=== PATIENT | male | born 1975 | race Two or more races ===

== ENCOUNTER 2024-12-24 21:23 | Inpatient (IN) | payer MEDICAID, OTHER ==
[~2024-12-24] VITALS: Ht 177.8 cm; Wt 99.8 kg
--- NOTE | 2024-12-24 21:44 | ED.PDOC ---
History of present illness HPI Comments 49 year old male brought in by EMS presents to the ED with a chief complaint of hyperglycemia onset today. Patient states he was experiencing difficultly breathing/breathing heavy and felt shaky as well as RT hip pain. Upon EMS arrival, patient's glucose read high, 700 ccs IV fluids were given, BG was checked, read high. Upon ED arrival, glucose was 600, hypertensive with BP 220 systolic. Patient denies any PMHx. Denies chest pain, dizziness, headache, fall, injury, nausea, vomiting, diarrhea, dysuria, hematuria. No other symptoms or modifying factors present at this time. Chief Complaint: Hyperglycemia Time Seen by MD: 21:30 History of present illness: Medications, Allergies Allergies: Coded Allergies: NO KNOWN ALLERGIES (Unverified , 12/24/24) Information Source: Patient, Relative, Emergency Med Personnel Mode of Arrival: EMS Timing: Hours Duration: Since onset Prehospital treatment: IVF (700 ccs) [place]: Shaky Symptoms: Shaky History of: None Modifying factors: Nothing Associated signs and symptoms: Other (difficulty breathing ) Past Medical History PAST MEDICAL HISTORY: Denies Surgical History: Denies all surgeries Family History Family History: Reviewed,noncontributory to illness, No family hx of Cancer, No family hx of DM, No family hx of Heart adelfo, No family hx of HTN, No family hx ofKidney adelfo, No family hx of Liver adelfo, No family hx of Lung adelfo, No family hx of Stroke Social History Smoker: Non-Smoker Alcohol: Denies ETOH Use Drugs: Denies Drug Use Lives In: Home Constitutional: denies: chills, diaphoresis, fatigue, fever, malaise, sweats, weakness, others EENTM: denies: blurred vision, double vision, ear bleeding, ear discharge, ear drainage, ear pain, ear ringing, eye pain, eye redness, hearing loss, mouth pain, mouth swelling, nasal discharge, nose bleeding, nose congestion, nose pain, photophobia, tearing, throat pain, throat swelling, voice changes, others Respiratory: reports: shortness of breath; denies: cough, hemoptysis, orthopnea, SOB at rest, SOB with excertion, stridor, wheezing, others Cardiovascular: denies: chest pain, dizzy spells, diaphoresis, Dyspnea on exertion, edema, irregular heart beat, left arm pain, lightheadedness, palpitations, PND, syncope, others Gastrointestinal: denies: abdomen distended, abdominal pain, blood streaked bowels, constipated, diarrhea, dysphagia, difficulty swallowing, hematemesis, melena, nausea, poor appetite, poor fluid intake, rectal bleeding, rectal pain, vomiting, others Genitourinary: denies: burning, dysuria, flank pain, frequency, hematuria, incontinence, penile discharge, penile sore, pain, testicle pain, testicle swelling, urgency, others Neurological: denies: dizziness, fainting, headache, left sided numbness, left sided weakness, numbness, paresthesia, pre-existing deficit, right sided numbness, right sided weakness, seizure, speech problems, tingling, tremors, weakness, others Musculoskeletal: reports: others (RT hip pain ); denies: back pain, gout, joint pain, joint swelling, muscle pain, muscle stiffness, neck pain Integumetry: denies: bruises, change in color, change in hair/nails, dryness, laceration, lesions, lumps, rash, wounds, others Allergic/Immunocompromised: denies: Difficulty Healing, Frequent Infections, Hives, Itching, others Hematologic/Lymphatic: denies: anemia, blood clots, easy bleeding, easy bruising, swollen glands, others Endocrine: denies: excessive hunger, excessive sweating, excessive thirst, excessive urination, flushing, intolerance to cold, intolerance to heat, unexplained weight gain, unexplained weight loss, others Psychiatric: denies: anxiety, bipolar disorder, depression, hopeless, panic disorder, schizophrenia, sleepless, suicidal, others All Other Systems: Reviewed and Negative Physical Exam General Appearance: Mild Distress HEENT: Other (Dry mucous membranes) Neck: Full Range of Motion, Normal Inspection Respiratory: Lungs Clear, Other (Kussmaul respirations) Cardiovascular: No Edema, No JVD, Tachycardia Breast Exam: Deferred Gastrointestinal: Non Tender, Soft Genitalia: Deferred Pelvic: Deferred Rectal: Deferred Extremities: Normal inspection, Normal range of motion, No pedal edema, Tender (Right hip) Neurologic: Alert (Oriented x4), Normal Affect, Normal Mood, Other (Moves all extremities. No gross focal deficit.) Cerebellar Function: NOT DONE Reflexes: NOT DONE Skin: Dry, Normal Color, Warm Lymphatic: NOT DONE Was a procedure done? Was a procedure done?: No EKG EKG : Comments Sinus tach, rate 143, normal intervals, normal axis, normal QRS, nonspecific T changes. Differential Diagnosis (DM) Differential Diagnosis: Dehydration, DKA, Electrolyte Abnormality, Hyperglycemia, Hyperosmolar State, UTI X-Ray, Labs, Meds, VS Vital Signs Date Time Temp Pulse Resp B/P (MAP) Pulse Ox O2 Delivery O2 Flow Rate FiO2 12/24/24 21:24 143 12/24/24 21:23 97.8 140 36 205/102 (136) 100 Lab Test 12/24/24 22:43 12/24/24 22:23 12/24/24 21:50 12/24/24 21:49 Range/Units Troponin I High Sensitivity 5 5 </=54 ng/L Blood Gas Specimen Type Arterial Blood Gas Sample Site Left radial Blood Gas Patient Temperature 37.0 Arterial Blood Date Drawn Arterial Blood pH 6.951 *L 7.350-7.450 Arterial Blood Partial Pressure CO2 < 12.6 *L 35.0-48.0 mmHg Arterial Blood Partial Pressure O2 132.9 H 83.0-108.0 mmHg Arterial Blood Oxygen Saturation 98.0 94.0-98.0 % Arterial Blood Oxyhemoglobin 97.0 94.0-98.0 % Arterial Blood Carboxyhemoglobin 0.2 L 0.5-1.5 % Arterial Blood Methemoglobin 0.8 0.0-1.5 % Alejandro Test Modified Blood Gas Total Hemoglobin 15.80 13.5-17.5 g/dL Blood Gas Modality Room air FiO2 % 21.0 Blood Gas Critical Value Read Back Yes Blood Gas Notified Whom evaristo Oropeza, Blood Gas Notified Time [id number] Blood Gas Notified By leigha Bland rrt Urine Color Light-yellow Yellow Urine Clarity Clear Clear Urine pH 5.0 5.0-9.0 Urine Specific [place] 1.022 1.001-1.035 Urine Protein Trace H Negative Urine Ketones 4+ H Negative Urine Blood 2+ H Negative /uL Urine Nitrite Negative Negative Urine Bilirubin Negative Negative Urine Urobilinogen Normal Negative mg/dL Urine Leukocyte Esterase Negative Negative /uL Urine RBC 3 0 - 3 /hpf Urine Microscopic WBC 1 0-3 /HPF Urine Squamous Epithelial Cells Few <5 /hpf Urine Bacteria None seen None Seen /hpf Urine Mucus Few None Seen Urine Yeast (Budding) Occasional None Seen /hpf Urine Glucose 4+ H Normal mg/dL White Blood Count 26.6 H 4.4-10.8 10^3/uL Red Blood Count 5.16 4.5-5.90 10^6/uL Hemoglobin 15.4 13.5-17.5 g/dL Hematocrit 51.0 41.0-53.0 % Mean Corpuscular Volume 98.7 80.0-100.0 fL Mean Corpuscular Hemoglobin 29.8 28.0-32.0 pg Mean Corpuscular Hemoglobin Concent 30.2 L 32.0-36.0 g/dL Red Cell Distribution Width 14.3 11.8-14.3 % Platelet Count 625 H 140-450 10^3/uL Mean Platelet Volume 7.9 6.9-10.8 fL Neutrophils (%) (Auto) 85.4 H 37.0-80.0 % Lymphocytes (%) (Auto) 4.0 L 10.0-50.0 % Monocytes (%) (Auto) 9.8 0.0-12.0 % Eosinophils (%) (Auto) 0.0 0.0-7.0 % Basophils (%) (Auto) 0.8 0.0-2.0 % Neutrophils # (Auto) 22.7 H 1.6-8.6 10 ^3/uL Lymphocytes # (Auto) 1.1 0.4-5.4 10 ^3/uL Monocytes # (Auto) 2.6 H 0-1.3 10 ^3/uL Eosinophils # (Auto) 0 0-0.8 10 ^3/uL Basophils # (Auto) 0.2 0-0.2 10 ^3/uL Nucleated Red Blood Cells 0.0 % Sodium Level 126 L 136-145 mmol/L Potassium Level 5.2 H 3.5-5.1 mmol/L Chloride Level 95 L 98-107 mmol/L Carbon Dioxide Level < 10 *L 20-31 mmol/L Anion Gap 21.33593 H 5-15 Blood Urea Nitrogen 40 H 9-23 mg/dL Creatinine 2.16 H 0.700-1.30 mg/dL Glomerular Filtration Rate Calc 37 >90 mL/min BUN/Creatinine Ratio 18.5 10.0-20.0 Serum Glucose 807 *H 74-106 mg/dL Calcium Level 9.4 8.7-10.4 mg/dL Total Bilirubin 0.2 0.2-1.0 mg/dL Aspartate Amino Transferase (AST) 13 13-40 U/L Alanine Aminotransferase (ALT) 15 7-40 U/L Alkaline Phosphatase 157 H 46-116 U/L B-Type Natriuretic Peptide 46.71 0-100 pg/mL Total Protein 7.5 5.7-8.2 g/dL Albumin 4.2 3.2-4.8 g/dL Beta-Hydroxybutyric Acid > 4.500 H < 0.4 mmol/L X-Ray, Labs, Meds, VS Comment 49-year-old male with no known past medical history presenting with rapid breath ing and hyperglycemia Vitals remarkable for heart rate 140, respiratory rate 36, BP 205/102 Exam remarkable for Kussmaul respirations and tachycardia Rhythm strip independently interpreted by me: Sinus tach, rate 143, no ectopy. Chest x-ray pending Right hip x-rays pending CBC remarkable for WBC 26.6, platelets 625, metabolic panel remarkable for sodium 126, potassium 5.2, chloride 95, CO2 less than 10, BUN 40, creatinine 2.16, glucose 807, anion gap 21, beta hydroxybutyrate greater than 4.5, troponin and BNP normal, UA protein, ketones, blood and glucose Patient treated with the following in the ED: 2 L 0.9 normal saline IV bolus, hydralazine 10 mg IV, regular insulin 10 units IV, then placed on insulin drip protocol Plan is to admit the patient for glucose correction and blood pressure control. Time of 1ST Reevaluation: 22:00 Reevaluation 1ST: Unchanged Patient Education/Counseling: Diagnosis, Treatment, Prognosis Family Education/Counseling: Diagnosis, Treatment, Prognosis Additional Information The following tests were ordered, and results were reviewed by me:EKG, TROP -x3, CBC, BNP, XY CHEST, UA, CMP, BETA-HYDROXYBUTYRATE, ABG W/ CO-OX, XY R HIP COMPLETE I reviewed and agreed with the following test results read by other providers: XY R HIP COMPLETE, XY CHEST Additional Information was gathered from interviewing the following independent historians: EMS I discussed treatment and results with medical personnel and: patient Departure 1 Departure Time of Disposition: 01:45 Impression: Primary Impression: Diabetes mellitus, new onset Additional Impressions: DKA (diabetic ketoacidosis) Qualified Codes: E13.10 - Other specified diabetes mellitus with ketoacidosis without coma Accelerated hypertension Disposition: ADMITTED INPATIENT Admit to: [facility] Condition: Serious Critical Care Note Critical Care Time?: Yes (45 min-critical care time only) Critical care comment: Critical care time including multiple bedside re-evaluations, review of lab and imaging studies, and discussion of the case with the admitting provider. Patient is high risk for metabolic and/or hemodynamic decompensation. Stability Stability form required: No Heart Score Heart Score: Heart Score Response (Comments) Value History N/A 0 EKG N/A 0 Age N/A 0 Risk Factors N/A 0 Troponin N/A 0 Total 0 I personally scribed for VALDEMAR OROPEZA MD ([email or web address]) on 12/24/24 at 21:44. Electronically submitted by Aisha Childs ([email or web address]). I personally scribed for VALDEMAR OROPEZA MD ([email or web address]) on 12/24/24 at 21:52. Electronically submitted by Aisha Childs ([email or web address]). VALDEMAR OROPEZA MD Dec 24, 2024 21:44
[2024-12-24 21:59] LABS: Urine Bacteria None Seen /hpf (None Seen)
[2024-12-24 22:04] LABS: Eosinophils # (auto) 0 10 ^3/uL (0-0.8); Lymphocytes # (auto) 1.1 10 ^3/uL (0.4-5.4); Mean Corpuscular Hgb Conc. 30.2 g/dL (32.0-36.0); Neutrophils # (auto) 22.7 10 ^3/uL (1.6-8.6)
[2024-12-24 22:06] LABS: Basophils # (auto) 0.2 10 ^3/uL (0-0.2); Basophils % (auto) 0.8 % (0.0-2.0); Hemoglobin 15.4 g/dL (13.5-17.5); Mean Corpuscular Hemoglobin 29.8 pg (28.0-32.0); Mean Corpuscular Volume 98.7 fL (80.0-100.0); Monocytes # (auto) 2.6 10 ^3/uL (0-1.3); Monocytes % (auto) 9.8 % (0.0-12.0); Neutrophils % (auto) 85.4 % (37.0-80.0); Platelet Count (auto) 625 10^3/uL (140-450); Red Blood Cells 5.16 10^6/uL (4.5-5.90); Red Cell Distribution Width 14.3 % (11.8-14.3); White Blood Cell 26.6 10^3/uL (4.4-10.8)
[2024-12-24 22:15] LABS: Urine Blood 2+ /uL (Negative); Urine Budding Yeast OCCASIONAL /hpf (None Seen); Urine Clarity Clear (Clear); Urine Color Light-Yellow (Yellow); Urine Mucus FEW (None Seen); Urine Protein, UAD TRACE (Negative); Urine Specific Gravity 1.022 (1.001-1.035); Urine Squamous Epithelial Cell FEW /hpf (<5); Urine Urobilinogen Normal (Negative); Urine WBC 1 /HPF (0-3)
[2024-12-24 22:23] LABS: Alanine Aminotransferase 15 U/L (7-40); Albumin 4.2 g/dL (3.2-4.8); Anion Gap 21.00001 (5-15); Aspartate Aminotransferase 13 U/L (13-40); BUN/Creatinine Ratio 18.5 (10.0-20.0); Calcium 9.4 mg/dL (8.7-10.4)
[2024-12-24 22:24] LABS: Total Protein 7.5 g/dL (5.7-8.2)
[2024-12-24 22:34] LABS: Alkaline Phosphatase 157 U/L (46-116); Bilirubin, Total 0.2 mg/dL (0.2-1.0); Blood Urea Nitrogen 40 mg/dL (9-23); Chloride 95 mmol/L (98-107); Potassium 5.2 mmol/L (3.5-5.1); Sodium 126 mmol/L (136-145)
[2024-12-24 22:38] LABS: Carbon Dioxide < 10 mmol/L (20-31); Glucose 807 mg/dL (74-106)
[2024-12-25] VITALS (66 sets, daily range): BP systolic 111–166; BP diastolic 65–89; PULSE 113–139; RESP 14–33; TEMP 96.3–100; O2SAT 96–100
[2024-12-25] MEDS ORDERED: DEXTROSE (50%) 50ML SYRG IV PRN ×3 (00:45→05:00)
[2024-12-25] MEDS: InsuLIN REG 1unit/0.01ml Soln (100units/ml) IV ONE ×2 (01:54→04:46)
[2024-12-25] MEDS: INSULIN LANTUS (GLARGINE) 1 /0.01ml (100units/ml) SC ONE (01:54)
[2024-12-25] MEDS: INSULIN DRIP 100 UNIT/100ML 100 ML IV SCH ×5 (01:55→15:16)
[2024-12-25] MEDS: SODIUM CHLORIDE 0.9% 2,000 ML IV ONE (01:56)
[2024-12-25] MEDS: hydrALAZINE HCL 20 MG/ML VL IV ONE ×2 (01:56→01:57)
--- NOTE | 2024-12-25 01:56 | DVH ---
CHEST RADIOGRAPH Indication: sob Technique: Single frontal view of the chest was obtained COMPARISON: None FINDINGS: Lines and Tubes: None Lungs: Clear Pleura: No effusion. No pneumothorax. Cardiomediastinal contours: Unremarkable Bones: Unremarkable IMPRESSION: 1. No acute disease.
[2024-12-25] MEDS: ACCU-CHEK COMFORT CURVE STRIP VI SCH ×3 (01:57→06:00)
[2024-12-25] MEDS: SODIUM CHLORIDE 0.9% 1,000 ML IV ONE ×2 (01:57→04:00)
--- NOTE | 2024-12-25 01:57 | DVH ---
CLINICAL INDICATION: pain TECHNIQUE: 3 views of the right hip. Comparison: None FINDINGS/IMPRESSION: There is no evidence of acute fracture or dislocation. Soft tissues are unremarkable.
--- NOTE | 2024-12-25 02:13 | DVHHPRES ---
History of Present Illness Resident Creating Document: CHRISTA MILLER History of Present Illness This is a 49-year-old male with recent diagnosis of diabetes mellitus per paramedics, patient denied any additional PMH of relevance. The patient is in moderate distress and unable to provide a clear history. Per paramedics, they were called to the scene due to the patient having work of breathing, associated with right hip pain and unable to ambulate usual. At the scene, blood glucose was measured and readings reported "high". Patient received 700 cc of IV fluids upon the way to the ED. on admission initial blood pressure was 205/102mmhg. Blood glucose was above 800. Hco3 was <10 and anion gap was 21 consistent with DKA. Hydroxybutyric acid also was >4.500. We ordered 2 L of IV fluids, started insulin drip protocol, monitoring potassium which was high initially. Patient will be admitted to ICU status for assessment and management of DKA. Past Medical History NO PMH of relevance per patient Past Surgical History: None Family History: None Smoke: No ALCOHOL: occassional Drugs: None Lives: with Family Domestic Violence: Neg Review of Systems Constitutional: No: Fever, Chills, Sweats, Weakness, Malaise, Other Eyes: No: Pain, Vision change, Conjunctivae inflammation, Eyelid inflammation, Other, Redness ENT: No: Ear pain, Ear discharge, Nose pain, Nose discharge, Nose congestion, Mouth pain, Mouth swelling, Throat pain, Throat swelling, Other Respiratory: Shortness of breath; No: Cough, Dry, SOB with excertion, Wheezing, Hemoptysis, Pleuritic Pain, Sputum, Wheezing, Other Cardiovascular: No: Chest Pain, Palpitations, Orthopnea, Paroxysmal Noc. Dyspnea, Edema, Lt Headedness, Other Gastrointestinal: No: Nausea, Vomiting, Abdominal Pain, Diarrhea, Constipation, Melena, Hematochezia, Other Genitourinary: No Dysuria, No Frequency, No Incontinence, No Hematuria, No Retention, No Other Musculoskeletal: leg pain; No: other, neck pain, shoulder pain, arm pain, back pain, hand pain, foot pain Skin: No: Rash, Lesions, Jaundice, Bruising, Other Neurological: Weakness, Confusion; No: Numbness, Incoordination, Change in speech, Seizures, Other Allergies: Coded Allergies: NO KNOWN ALLERGIES (Unverified , 12/24/24) Medications Current Medications Medications Dose Ordered Sig/Loly Route Start Time Stop Time Status Last Admin Dose Admin Insulin Human (Reg)/Sodium Chloride 100 ml @ 0.5 mls/hr Q24H IV 12/25/24 00:45 Diagnostic Test (Pha) 1 strip Q90MIN 12/25/24 01:30 Dextrose 50 ml PRN PRN IV 12/25/24 00:45 Insulin Glargine 15 units DAILY SC 12/26/24 10:00 Acetaminophen 650 mg Q6HP PRN PO 12/25/24 01:30 UNV Exam Vital Signs Vital Signs Date Time Temp Pulse Resp B/P (MAP) Pulse Ox O2 Delivery O2 Flow Rate FiO2 12/24/24 21:24 143 12/24/24 21:23 97.8 36 205/102 (136) 100 General Appearance: Alert, severe distress, Other (Patient is alert and oriented but in severe distress with Kussmaul respiration) HEENT: Atraumatic, PERRLA, EOMI, Other (Dry mouth likely due to dehydration) Respiratory: Clear to auscultation, Normal air movement, Other (Patient is hyperventilating likely) Cardiovascular: Regular rate, Normal S1, Normal S2, No murmurs Abdominal: Normal bowel sounds, Soft, No tenderness, No hepatospenomegaly Extremities: No clubbing, No cyanosis, No edema, Normal pulses, No tenderness/swelling Skin: No rashes, No breakdown, No significant lesion Neuro: Normal gait, Normal speech, Strength at 5/5 X4 ext, Normal tone, Sensation intact, Cranial nerves 3-12 NL, Reflexes 2+ Psych/Mental Status: Mental status NL, Mood NL Labs/Xrays Labs Test 12/24/24 22:43 12/24/24 22:23 12/24/24 21:50 12/24/24 21:49 Range/Units Troponin I High Sensitivity 5 </=54 ng/L Blood Gas Specimen Type Arterial Blood Gas Sample Site Left radial Blood Gas Patient Temperature 37.0 Arterial Blood Date Drawn Arterial Blood pH 6.951 *L 7.350-7.450 Arterial Blood Partial Pressure CO2 < 12.6 *L 35.0-48.0 mmHg Arterial Blood Partial Pressure O2 132.9 H 83.0-108.0 mmHg Arterial Blood Oxygen Saturation 98.0 94.0-98.0 % Arterial Blood Oxyhemoglobin 97.0 94.0-98.0 % Arterial Blood Carboxyhemoglobin 0.2 L 0.5-1.5 % Arterial Blood Methemoglobin 0.8 0.0-1.5 % Alejandro Test Modified Blood Gas Total Hemoglobin 15.80 13.5-17.5 g/dL Blood Gas Modality Room air FiO2 % 21.0 Blood Gas Critical Value Read Back Yes Blood Gas Notified Whom evaristo Winter, Blood Gas Notified Time [id number] Blood Gas Notified By leigha Bland rrt Urine Color Light-yellow Yellow Urine Clarity Clear Clear Urine pH 5.0 5.0-9.0 Urine Specific [place] 1.022 1.001-1.035 Urine Protein Trace H Negative Urine Ketones 4+ H Negative Urine Blood 2+ H Negative /uL Urine Nitrite Negative Negative Urine Bilirubin Negative Negative Urine Urobilinogen Normal Negative mg/dL Urine Leukocyte Esterase Negative Negative /uL Urine RBC 3 0 - 3 /hpf Urine Microscopic WBC 1 0-3 /HPF Urine Squamous Epithelial Cells Few <5 /hpf Urine Bacteria None seen None Seen /hpf Urine Mucus Few None Seen Urine Yeast (Budding) Occasional None Seen /hpf Urine Glucose 4+ H Normal mg/dL White Blood Count 26.6 H 4.4-10.8 10^3/uL Red Blood Count 5.16 4.5-5.90 10^6/uL Hemoglobin 15.4 13.5-17.5 g/dL Hematocrit 51.0 41.0-53.0 % Mean Corpuscular Volume 98.7 80.0-100.0 fL Mean Corpuscular Hemoglobin 29.8 28.0-32.0 pg Mean Corpuscular Hemoglobin Concent 30.2 L 32.0-36.0 g/dL Red Cell Distribution Width 14.3 11.8-14.3 % Platelet Count 625 H 140-450 10^3/uL Mean Platelet Volume 7.9 6.9-10.8 fL Neutrophils (%) (Auto) 85.4 H 37.0-80.0 % Lymphocytes (%) (Auto) 4.0 L 10.0-50.0 % Monocytes (%) (Auto) 9.8 0.0-12.0 % Eosinophils (%) (Auto) 0.0 0.0-7.0 % Basophils (%) (Auto) 0.8 0.0-2.0 % Neutrophils # (Auto) 22.7 H 1.6-8.6 10 ^3/uL Lymphocytes # (Auto) 1.1 0.4-5.4 10 ^3/uL Monocytes # (Auto) 2.6 H 0-1.3 10 ^3/uL Eosinophils # (Auto) 0 0-0.8 10 ^3/uL Basophils # (Auto) 0.2 0-0.2 10 ^3/uL Nucleated Red Blood Cells 0.0 % Sodium Level 126 L 136-145 mmol/L Potassium Level 5.2 H 3.5-5.1 mmol/L Chloride Level 95 L 98-107 mmol/L Carbon Dioxide Level < 10 *L 20-31 mmol/L Anion Gap 21.03581 H 5-15 Blood Urea Nitrogen 40 H 9-23 mg/dL Creatinine 2.16 H 0.700-1.30 mg/dL Glomerular Filtration Rate Calc 37 >90 mL/min BUN/Creatinine Ratio 18.5 10.0-20.0 Serum Glucose 807 *H 74-106 mg/dL Calcium Level 9.4 8.7-10.4 mg/dL Total Bilirubin 0.2 0.2-1.0 mg/dL Aspartate Amino Transferase (AST) 13 13-40 U/L Alanine Aminotransferase (ALT) 15 7-40 U/L Alkaline Phosphatase 157 H 46-116 U/L B-Type Natriuretic Peptide 46.71 0-100 pg/mL Total Protein 7.5 5.7-8.2 g/dL Albumin 4.2 3.2-4.8 g/dL Beta-Hydroxybutyric Acid > 4.500 H < 0.4 mmol/L Assessment/Plan Assessment/Plan Assessment/plan Severe DKA -initial blood glucose was above 800 -anion gap was 21, bicarbonate less than 10, beta hydroxybutyric acid more than 4500 -ABG showed pH of 6.95, bicarbonate undetectable, pCO2 less than 12.6, PaO2 132.9 -start IV fluids 2 Liters 0.9% -Maintenance fluids at 250cc/hr -start insulin drip protocol -monitor potassium and electrolytes closely -Initial potassium was 5.2 -Sodium bicarb 1 amp and bicarb drip -Monitor Blood glucose closely -ICU status -Monitor with subsequent ABGs Hypertensive urgency -No previous hx of hypertension -Hydralazine 10mg IV single dose -Monitor BP -manage metabolic acidosis Leukocytosis unknown source -WBC 30.000 -Order blood culture -IV vanco and meropenem -Continue maintenance fluids Goals of care discussed with the patient at bedside for>30min, FULL CODE Plan discussed with Dr. Goetz Plan discussed with: Patient My Orders Orders - CHRISTA MILLER Procedure Category Date Status Time Admit ADMIT 12/25/24 Transmitted 01:19 Code Status CODE 12/25/24 Transmitted 01:19 Vital Signs [facility] 12/25/24 In Process 01:19 Review Orders With [facility] 12/25/24 In Process Adm.Md 01:19 Encourage Activity As AMANDEEP 12/25/24 In Process Tolerate 01:19 Npo (Nothing By DIET 12/25/24 Transmitted Mouth) Diet Breakfast Acetaminophen Tablet PHA 12/25/24 Logged (Tylenol Tablet) 01:30 Notify Md Of Changes [facility] 12/25/24 In Process From Base 01:19 Advance Directive [facility] 12/25/24 In Process 01:19 Urinalysis LAB 12/25/24 Logged 01:19 Lipid Panel LAB 12/25/24 Logged 01:19 Patient Condition ORDERS 12/25/24 Transmitted 01:19 Allergies [facility] 12/25/24 In Process 01:19 Hemoglobin A1c LAB 12/25/24 Logged 01:19 Potassium LAB 12/25/24 Transmitted 03:30 Date of Service: Dec 25, 2024 Billing Provider: TEDDY GOETZ MD Common Visit Codes: 35527-[id number] CARE 30-74 MIN CHRISTA MILLER Dec 25, 2024 02:12 TEDDY GOETZ MD Dec 26, 2024 00:21
[2024-12-25] MEDS: ACETAMINOPHEN 325 MG TAB PO PRN (03:56)
[2024-12-25] MEDS: SOD CHL 0.9%/ KCL 20MEQ 1,000 ML IV ONE (04:00)
[2024-12-25] MEDS: POTASSIUM CHL 20MEQ/100ML 100 ML IV ONE (04:00)
[2024-12-25 04:19] LABS: LDL Cholesterol 83 mg/dL (< 100)
[2024-12-25 04:20] LABS: HDL Cholesterol 56 mg/dL (40-59)
[2024-12-25 04:21] LABS: Cholesterol 191 mg/dL (< 200)
[2024-12-25 04:24] LABS: Triglycerides 237 mg/dL (< 150)
[2024-12-25] MEDS: SODIUM BICARB 50mEq/50ml Vial 100 ML in SOD CHL 0.45% 1,000 ML IV ONE (04:30)
[2024-12-25] MEDS: SODIUM BICARB 8.4% 50Meq/50ml SYR Vial IV ONE ×4 (04:45→10:41)
[2024-12-25] MEDS: cefTRIAXone 1GM/50ML D5W 50 ML IV ONE (05:13)
[2024-12-25] MEDS: SODIUM BICARB 50mEq/50ml Vial 100 ML in SOD CHL 0.45% 1,000 ML IV SCH (06:00)
[2024-12-25 06:18] LABS: Hematocrit 50.1 % (41.0-53.0); Hemoglobin 15.7 g/dL (13.5-17.5); Mean Corpuscular Hemoglobin 29.9 pg (28.0-32.0); Mean Corpuscular Hgb Conc. 31.3 g/dL (32.0-36.0); Red Blood Cells 5.25 10^6/uL (4.5-5.90); Red Cell Distribution Width 13.6 % (11.8-14.3)
[2024-12-25 06:20] LABS: Mean Corpuscular Volume 95.6 fL (80.0-100.0); Platelet Count (auto) 523 10^3/uL (140-450)
[2024-12-25 06:31] LABS: White Blood Cell 30.3 10^3/uL (4.4-10.8)
[2024-12-25 06:33] LABS: Basophils % (manual) 0 (0.0-2.0); Blast Cells 0; Eosinophils % (manual) 0 (0-7); Metamyelocytes % 0; Promyelocytes % 0; Reactive Lymphocytes 0
[2024-12-25] MEDS ORDERED: VANCOMYCIN PER PHARMACY 0 MG IV SCH (06:45)
[2024-12-25 06:55] LABS: Alanine Aminotransferase 17 U/L (7-40); Albumin 4.3 g/dL (3.2-4.8); Anion Gap 18.00001 (5-15); Aspartate Aminotransferase 25 U/L (13-40); BUN/Creatinine Ratio 13.1 (10.0-20.0); Band Neutrophils % (manual) 9; Calcium 9.2 mg/dL (8.7-10.4); Chloride 98 mmol/L (98-107); Lymphocytes % (manual) 7 (10.0-50.0); Monocytes % (manual) 3 (0-12); Myelocytes % 2; Platelet Estimate Increased; Total Protein 8.2 g/dL (5.7-8.2)
[2024-12-25 06:56] LABS: Alkaline Phosphatase 172 U/L (46-116); Bilirubin, Total 0.2 mg/dL (0.2-1.0); Blood Urea Nitrogen 27 mg/dL (9-23); Potassium 5.4 mmol/L (3.5-5.1); Sodium 126 mmol/L (136-145)
--- NOTE | 2024-12-25 06:56 | ECG ---
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
[2024-12-25 06:57] LABS: Carbon Dioxide < 10 mmol/L (20-31); Glucose 669 mg/dL (74-106)
[2024-12-25 07:02] LABS: Lactic Acid w/Reflex 2.2 mmol/L (0.4-2.0)
[2024-12-25] MEDS: VANCOMYCIN 1GM/250mL NS or D5W KIT IV ONE ×2 (07:03→08:13)
[2024-12-25] MEDS ORDERED: SODIUM CHLORIDE 0.9% 1,000 ML IV ONE (07:15)
[2024-12-25] MEDS ORDERED: FLUCONAZOLE 200MG/100ML 100 ML IV ONE (09:30)
[2024-12-25] MEDS ORDERED: SODIUM BICARB 50mEq/50ml Vial 100 ML in SOD CHL 0.45% 1,000 ML IV SCH (10:00)
[2024-12-25 10:03] LABS: Base Excess -16.3 mmol/L (-2.0-3.0)
[2024-12-25] MEDS: SODIUM CHLORIDE 0.9% 1,000 ML IV SCH (10:28)
--- NOTE | 2024-12-25 10:58 | DVH ---
RIGHT LOWER EXTREMITY VENOUS DOPPLER CLINICAL HISTORY: R/O DVT TECHNIQUE: Right lower extremity venous doppler study was performed. COMPARISON: None FINDINGS: The right common femoral, superficial femoral, popliteal, posterior tibial veins and trifur cation appear patent with normal augmentation, phasicity, compressibility and color-flow. IMPRESSION: 1. No sonographic evidence of DVT in the right leg. HS:Y
--- NOTE | 2024-12-25 11:05 | ECG ---
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
[2024-12-25 11:35] LABS: Calcium 9.4 mg/dL (8.7-10.4)
[2024-12-25 11:36] LABS: Anion Gap 22.00001 (5-15)
[2024-12-25 11:41] LABS: BUN/Creatinine Ratio 23.1 (10.0-20.0)
--- NOTE | 2024-12-25 11:53 | DVH ---
Procedure: US RIGHT LOWER EXTREMITY ULTRASOU 12/25/2024 10:14 AM Indication: right hip pain Comparison: Radiograph dated 12/25/2024 Technique: Sonogram of the area of clinical concern in the anterior right hip region was obtained uti lizing grayscale and color techniques. FINDINGS: There is a crescentic fluid-filled structure anterior to the hip joint measuring 2.9 x 0.7 x 0.5 cm that may represent a joint effusion or ganglion cyst. IMPRESSION: Small hip joint effusion versus ganglion cyst. This can be better evaluated by hip MRI without IV co ntrast if clinically indicated.
[2024-12-25] MEDS: PANTOPRAZOLE 40 MG/10 ML VIAL INJ IV ONE (12:00)
[2024-12-25 12:08] LABS: Blood Urea Nitrogen 39 mg/dL (9-23); Chloride 102 mmol/L (98-107); Glucose 345 mg/dL (74-106); Potassium 4.6 mmol/L (3.5-5.1); Sodium 134 mmol/L (136-145)
[2024-12-25 12:09] LABS: Carbon Dioxide < 10 mmol/L (20-31)
[2024-12-25 13:02] LABS: Cannabinoid Screen, Urine Neg (NEGATIVE); Cocaine Screen, Urine Neg (NEGATIVE); Opiate Scree,Urine Neg (NEGATIVE); Phencyclidine Screen, Urine Neg (NEGATIVE)
[2024-12-25 13:21] LABS: Barbiturate Scree,Urine Neg (NEGATIVE); Benzodiazephine Screen, Urine Neg (NEGATIVE)
[2024-12-25] MEDS: D5W/SOD CHL 0.45% 1,000 ML IV SCH (14:03)
[2024-12-25 14:05] LABS: Amphetamine Screen, Urine Neg (NEGATIVE)
--- NOTE | 2024-12-25 15:03 | DVH ---
CT ABDOMEN AND PELVIS WITHOUT CONTRAST CLINICAL HISTORY: intra abdominal infection or collection to rule out. TECHNIQUE: Multiple contiguous axial images of the abdomen and pelvis without intravenous contrast. The images were reformatted degenerate coronal and sagittal reconstructions. All CT scans at this medical facility are performed using dose modulation techniques as appropriate t o a performed exam including the following:Automated exposure control was utilized; adjustment of the MA and/or KV according to patient size; and use of iterative reconstruction technique. Radiation Dose Information: CT Dose: CTDI volume is 21.66 mGy. Dose-length product is 1473.94 mGy*cm Comparison: None FINDINGS: Evaluation of the abdomen and pelvis is limited without intravenous contrast. There is a 5 mm calculus in the lower pole of the left kidney. There is no right renal calculus. Th ere is no hydronephrosis. There is no evidence of a ureteral calculus or hydroureter. The liver, gallbladder, pancreas, adrenal glands, and spleen appear within normal limits. There is no gross evidence of abdominal lymphadenopathy. There is no free fluid or free air. The stomach grossly appears unremarkable. The small and large bowel loops demonstrate normal caliber and appear within normal limits.. The abdominal aorta and IVC appear within normal limits. There is a Ruiz catheter in the bladder which is decompressed limiting evaluation. Pelvic organ appe ars within normal limits. There is no gross evidence of a pelvic mass. There is no free fluid collec tion. Lung bases are clear. There is no acute osseous abnormality. IMPRESSION: 1. There is no acute process in the abdomen and pelvis. 2. 5 mm nonobstructive left lower pole renal calculus. HS:Y
[2024-12-25 16:25] LABS: Potassium 3.5 mmol/L (3.5-5.1); Sodium 140 mmol/L (136-145)
[2024-12-25 16:26] LABS: Anion Gap 16 (5-15)
[2024-12-25 16:32] LABS: BUN/Creatinine Ratio 21.1 (10.0-20.0)
[2024-12-25 16:43] LABS: Blood Urea Nitrogen 28 mg/dL (9-23); Carbon Dioxide 17 mmol/L (20-31); Chloride 107 mmol/L (98-107); Glucose 124 mg/dL (74-106)
[2024-12-25] MEDS: POTASSIUM CHL 20MEQ/100ML 100 ML IV SCH (17:26)
--- NOTE | 2024-12-25 18:04 | DVHPNRES ---
Progress Note Date Seen: Dec 25, 2024 Resident Creating Document: AMADOU TINOCO RESIDENT Has the PT tested + for MRSA If YES, has PT been informed?: Yes Medical Necessity Reason Pt with a Central, PICC or Fol: No The following are medically ne: Robles Catheter Reason for robles catheter: Strict I&O Subjective Review of Systems 49 year old male patient with past medical history of type 2 obesity, who was brought by paramedics with a chief complaint of shortness of breaths (increased work of breathing) respirations were deep, fast (Kussmaul breathing), patient was ill-appearing and had a critical high blood glucose level. Vital signs showed severe hypertension (blood pressure 205/102), initial laboratory findings were consistent with severe diabetic ketoacidosis, for which the patient was started on IV fluids, insulin drip and electrolyte monitoring , the patient was admitted to the ICU for severe DKA with possible underlying sepsis, during ICU admission (12/25/2024) metabolic acidosis improved from 6.9-7.26, anion gap decreased from 22 to 16, potassium levels went down until 3.5, requiring IV potassium chloride supplementation (60 mEq), most recent blood glucose went down until 140 mg/dL for which the patient was given dextrose 5%. Low-grade fevers 99.1 F was noted an elevated white blood cell count 30.3 that raise concern for sepsis as a potential DKA trigger, urinalysis was positive for yeast and blood the patient was started on fluconazole IV for suspected fungal UTI, patient will empirically on IV antibiotics with meropenem and vancomycin while awaiting blood cultures and urine cultures. Regarding right hip pain a CT abdomen and pelvis and lower extremity with the son were performed, DVT was ruled out but ultrasound showed a small hip joint effusion/ganglion cyst, possible MRI to assess further we will be evaluated once DKA resolves. Patient remain hemodynamically stable, he is currently on room air and he will be started on oral feeding with clear liquid diet as DKA is resolving. He continue to be monitored closely in the ICU, with a plan for gradual transition to the medical floor once metabolic status stabilizes. 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 Dyspnea, Edema, Lt Headedness, Other Gastrointestinal: No: Nausea, Vomiting, Abdominal Pain, Diarrhea, Constipation, Melena, Hematochezia, Other Musculoskeletal: Severe right hip pain that exacerbates on movement and palpation Neurological:; No: Weakness, Numbness, Incoordination, Change in speech, Confusion, Seizures Patient reports: Feels better Changes from previous H/P or p: Changes Objective vital signs Vital Sign Date Time Temp Pulse Resp B/P (MAP) Pulse Ox O2 Delivery O2 Flow Rate FiO2 12/25/24 16:45 99.1 119 22 125/75 (92) 98 210.4 12/25/24 16:00 Room Air* 0 21 Total Intake and Output 12/24/24 12/24/24 12/25/24 15:00 23:00 07:00 Intake Total 2111 ml Output Total 625 ml Balance 1486 ml medications Current Medications Medications Dose Ordered Sig/Loly Route Start Time Stop Time Status Last Admin Dose Admin Acetaminophen 650 mg Q6HP PRN PO 12/25/24 01:30 Diagnostic Test (Pha) 1 strip Q90MIN 12/25/24 06:00 12/25/24 16:49 1 STRIP Dextrose 50 ml PRN PRN IV 12/25/24 05:00 Vancomycin HCl 0 ml @ 0 mls/hr UD IV 12/25/24 06:45 Meropenem 50 ml @ 17 mls/hr Q12HR IV 12/25/24 22:00 Pantoprazole Sodium 40 mg DAILY IV 12/26/24 10:00 Vancomycin HCl 250 ml @ 200 mls/hr Q18H IV 12/26/24 00:00 Dextrose/Sodium Chloride 1,000 ml @ 150 mls/hr Q6H40M IV 12/25/24 14:00 12/25/24 14:03 150 MLS/HR Insulin Human (Reg)/Sodium Chloride 100 ml @ 1 mls/hr Q24H IV 12/25/24 15:15 12/25/24 15:16 1 MLS/HR Examination Examination General Appearance: Ill-appearing but improving, moderate acute distress Respiratory: Clear to auscultation, Normal air movement, Kussmaul resolved, no rales Cardiovascular: Regular rate, Normal S1, Normal S2 Abdominal: Normal bowel sounds, nontender nondistended, soft Extremities: Right hip tenderness, 10/10 pain palpation, no redness or swelling No cyanosis, No edema, Normal pulses, No tenderness/swelling Skin: No rashes, No breakdown, no ulcers no lesions, on feet Neuro: Normal speech, Strength at 3/5 X4 ext, Normal tone, Sensation intact Psych/Mental Status: Mental status NL, Mood NL laboratory and microbiology Laboratory Tests 12/25/24 15:55 12/25/24 06:07 Test 12/25/24 15:55 Range/Units Serum Glucose 124 #H 74-106 mg/dL Microbiology Date/Time Source Procedure Growth Status 12/25/24 07:45 Nose MRSA Screen - Final Complete Problem List/Assessment/Plan Problem List/Assessment/Plan Neurology #Acute metabolic/hypertensive encephalopathy due to severe diabetic ketoacidosis due to sepsis likely pneumonia/UTI, resolving -patient admitted to ICU -patient is currently on room air -PH improved from 6.9-7.6 -current anion gap 16 -continue IV insulin drip Monitor BMP Monitor potassium levels every 4 hours Start clear liquid diet Continue IV antibiotics, IV meropenem plus vancomycin Fluconazole IV started for suspected fungal UTI Urine and blood cultures still pending. -monitor potassium levels q.4 hours -60 mEq potassium replacement -currently on insulin drip, possible transition to subcutaneous insulin, monitor if patient tolerates oral nutrition -recent glucose 140, currently on dextrose 5% -clear liquid diet, advance as tolerated Cardiovascular: #acute metabolic/ hypertensive encephalopathy likely multifactorial due DKA to hypertensive emergency #atrial fibrillation was found on admission #hypertriglyceridemia #sinus tachycardia -blood pressure normalized -lifestyle modification and dietary habits counseling -current heart rate in the 120s Respiratory #Acute hypoxemic respiratory failure due to severe diabetic ketoacidosis likely due to sepsis likely pneumonia UTI #Hypocapnia due to respiratory alkalosis response due to metabolic alkalosis due to DKA -currently on room air -same as above Gastrointestinal: /kidney #acute kidney injury likely hemodynamically mediated due to the VMN, creatinine improving #nonobstructive right sided kidney stone, 5 mm -IV fluids -follow-up on kidney stone in the outpatient Endocrinology #Uncontrolled type 2 diabetes, hemoglobin A1c 12.3 #Severe diabetic ketoacidosis #Metabolic acidosis due to DKA with respiratory alkalosis compensation, increased anion gap, current AGAP 16 #Hypovolemic hyponatremia due to severe hyperglycemia #Ketonuria #Metabolic syndrome #Type 2 obesity -same as above -Lifestyle modification counseling and dietary habits counseling Infectious disease: #history of recent urethral whitish discharge likely due to fungal UTI #leukocytosis due to SIRS, possible sepsis due to UTI -empiric IV antibiotics -fluconazole IV -IV fluids -blood cultures and urine cultures pending Skin Case discussed with Dr. Epstein Goals of care discussed with the patient and sister for 36 minutes Code status: DNR/DNI critical care time spent was 81 mins Plan discussed with: Patient, Other (Sister) My Orders My Orders Orders - AMADOU TINOCO Procedure Category Date Status Time Basic Metabolic Panel LAB 12/26/24 Verified 22:00 Basic Metabolic Panel LAB 12/26/24 Verified 04:00 Basic Metabolic Panel LAB 12/26/24 Verified 10:00 Basic Metabolic Panel LAB 12/26/24 Verified 18:00 Basic Metabolic Panel LAB 12/27/24 Verified 00:00 Basic Metabolic Panel LAB 12/27/24 Verified 06:00 Urine Bacterial RIOS 12/25/24 In Process Culture 09:20 Abg W/ Co-Ox RT 12/25/24 Logged 09:33 Chlamydia/Gc LAB 12/25/24 In Process Amplification 09:28 Ct Ab Pel Wo Con-No CT 12/25/24 Resulted Oral Or Iv 09:28 Right Lower Extremity US 12/25/24 Resulted Ultrasou 09:59 Electrocardigram EKG 12/25/24 Resulted 10:56 D5w/Sod Chl 0.45% PHA 12/25/24 In Process (D5w 1/2ns) 14:00 Potassium Chl PHA 12/25/24 Logged 20meq/100ml 17:15 Clear Liq Diet DIET 12/25/24 Transmitted Dinner Date of Service: Dec 25, 2024 Billing Provider: DAMEON EPSTEIN MD Common Visit Codes: [id number] CARE 30-74 MIN, 82505-[id number] CARE-EACH +30MIN AMADOU TINOCO RESIDENT Dec 25, 2024 18:04 DAMEON EPSTEIN MD Dec 28, 2024 17:53
[2024-12-25] MEDS: VANCOMYCIN 1GM/250ML KIT 250 ML IV SCH (20:23)
[2024-12-25] MEDS ORDERED: MEROPENEM 1GM IVPB 50 ML IV SCH (22:00)
[2024-12-25] MEDS: MEROPENEM 1GM IVPB 50 ML IV SCH (22:18)
[2024-12-25 22:37] LABS: Chloride 106 mmol/L (98-107); Sodium 139 mmol/L (136-145)
[2024-12-25 22:38] LABS: Anion Gap 14 (5-15); Calcium 9.4 mg/dL (8.7-10.4)
[2024-12-25 22:43] LABS: Blood Urea Nitrogen 23 mg/dL (9-23)
[2024-12-25 22:45] LABS: Carbon Dioxide 19 mmol/L (20-31); Glucose 171 mg/dL (74-106); Potassium 3.3 mmol/L (3.5-5.1)
[2024-12-26] VITALS (78 sets, daily range): BP systolic 113–151; BP diastolic 70–96; PULSE 1–128; RESP 12–24; TEMP 98.1–99.9; O2SAT 94–100
[2024-12-26] MEDS ORDERED: VANCOMYCIN 1.25GM/250ML 250 ML IV SCH
[2024-12-26] MEDS: INSULIN DRIP 100 UNIT/100ML 100 ML IV SCH ×2 (01:37→06:00)
[2024-12-26 04:17] LABS: Hematocrit 39.4 % (41.0-53.0); Hemoglobin 13.7 g/dL (13.5-17.5); Mean Corpuscular Hemoglobin 29.6 pg (28.0-32.0); Mean Corpuscular Hgb Conc. 34.8 g/dL (32.0-36.0); Mean Corpuscular Volume 85.1 fL (80.0-100.0); Platelet Count (auto) 359 10^3/uL (140-450); Red Blood Cells 4.62 10^6/uL (4.5-5.90); Red Cell Distribution Width 13.2 % (11.8-14.3); White Blood Cell 16.2 10^3/uL (4.4-10.8)
[2024-12-26 04:26] LABS: Basophils % (manual) 0 (0.0-2.0); Blast Cells 0; Eosinophils % (manual) 0 (0-7); Metamyelocytes % 0; Myelocytes % 0; Promyelocytes % 0; Reactive Lymphocytes 0
[2024-12-26 04:30] LABS: Sodium 140 mmol/L (136-145)
[2024-12-26 04:31] LABS: Anion Gap 11 (5-15); Calcium 8.9 mg/dL (8.7-10.4); Carbon Dioxide 20 mmol/L (20-31)
[2024-12-26 04:36] LABS: BUN/Creatinine Ratio 16.2 (10.0-20.0); Blood Urea Nitrogen 16 mg/dL (9-23)
[2024-12-26 04:38] LABS: Chloride 109 mmol/L (98-107); Glucose 131 mg/dL (74-106); Potassium 2.9 mmol/L (3.5-5.1)
[2024-12-26] MEDS: POTASSIUM CHL 20MEQ/100ML 100 ML IV SCH (05:30)
[2024-12-26 06:21] LABS: Band Neutrophils % (manual) 13; Lymphocytes % (manual) 7 (10.0-50.0); Monocytes % (manual) 9 (0-12)
[2024-12-26 06:22] LABS: Platelet Estimate Adequate
[2024-12-26] MEDS: PANTOPRAZOLE 40 MG/10 ML VIAL INJ IV SCH (07:29)
[2024-12-26] MEDS: POTASSIUM EFFERVESENT TAB 25 MEQ PO STA (08:33)
[2024-12-26] MEDS ORDERED: cefTRIAXone 1GM/50ML D5W 50 ML IV SCH (09:00)
[2024-12-26] MEDS ORDERED: INSULIN LANTUS (GLARGINE) 1 /0.01ml (100units/ml) SC SCH (10:00)
[2024-12-26 10:50] LABS: Potassium 3.7 mmol/L (3.5-5.1)
[2024-12-26 10:51] LABS: Chloride 106 mmol/L (98-107); Potassium 3.7 mmol/L (3.5-5.1); Sodium 136 mmol/L (136-145)
[2024-12-26 10:52] LABS: Anion Gap 10 (5-15); Carbon Dioxide 20 mmol/L (20-31)
[2024-12-26 10:57] LABS: BUN/Creatinine Ratio 11.8 (10.0-20.0); Blood Urea Nitrogen 10 mg/dL (9-23); Magnesium 1.9 mg/dL (1.6-2.6)
[2024-12-26 10:59] LABS: Calcium 8.5 mg/dL (8.7-10.4); Glucose 244 mg/dL (74-106)
[2024-12-26] MEDS: INSULIN LANTUS (GLARGINE) 1 /0.01ml (100units/ml) SC SCH (11:53)
[2024-12-26 16:07] LABS: Chloride 107 mmol/L (98-107); Sodium 138 mmol/L (136-145)
[2024-12-26 16:08] LABS: Anion Gap 8 (5-15); Carbon Dioxide 23 mmol/L (20-31)
[2024-12-26 16:13] LABS: BUN/Creatinine Ratio 14.7 (10.0-20.0); Blood Urea Nitrogen 11 mg/dL (9-23)
[2024-12-26 16:15] LABS: Calcium 8.4 mg/dL (8.7-10.4); Glucose 166 mg/dL (74-106); Potassium 3.3 mmol/L (3.5-5.1)
[2024-12-26] MEDS ORDERED: DEXTROSE (50%) 50ML SYRG IV PRN (16:30)
[2024-12-26] MEDS: ACCU-CHEK COMFORT CURVE STRIP VI SCH (16:38)
[2024-12-26] MEDS: POTASSIUM EFFERVESENT TAB 25 MEQ PO ONE (16:51)
[2024-12-26] MEDS: InsuLIN REG 1unit/0.01ml Soln (100units/ml) SC SCH ×2 (16:53→22:11)
--- NOTE | 2024-12-26 19:34 | DVHPNRES ---
Progress Note Date Seen: Dec 26, 2024 Resident Creating Document: AMADOU TINOCO RESIDENT Has the PT tested + for MRSA If YES, has PT been informed?: Yes Medical Necessity Reason Pt with a Central, PICC or Fol: No The following are medically ne: Robles Catheter Reason for robles catheter: Strict I&O Subjective Review of Systems Patient examined at bedside, she reports improvement in his symptoms without any acute complaint other than the chronic right hip pain that will be evaluated in the outpatient. Hyperglycemia crisis resolved, the patient started oral feeding that was well tolerated, last anion gap was 8 for which the patient met criteria for transition to subcutaneous Lantus 30 units, potassium was replaced as needed. The patient was downgraded to telemetry to keep monitoring heart rate, we will continue monitoring closely. Patient reports: Feels better Changes from previous H/P or p: Changes Objective vital signs Vital Sign Date Time Temp Pulse Resp B/P (MAP) Pulse Ox O2 Delivery O2 Flow Rate FiO2 12/26/24 18:35 98.6 115 20 149/85 (106) 99 98.6 12/26/24 17:38 Room Air* 0 21 Total Intake and Output 12/25/24 12/25/24 12/26/24 15:00 23:00 07:00 Intake Total 1742 ml 1704 ml 1423 ml Output Total 2500 ml 1100 ml Balance 1742 ml -796 ml 323 ml medications Current Medications Medications Dose Ordered Sig/Loly Route Start Time Stop Time Status Last Admin Dose Admin Acetaminophen 650 mg Q6HP PRN PO 12/25/24 01:30 12/26/24 16:52 650 MG Dextrose 50 ml PRN PRN IV 12/25/24 05:00 Vancomycin HCl 0 ml @ 0 mls/hr UD IV 12/25/24 06:45 Pantoprazole Sodium 40 mg DAILY IV 12/26/24 10:00 12/26/24 07:29 40 MG Meropenem 50 ml @ 17 mls/hr Q8HR IV 12/25/24 22:00 12/26/24 13:07 17 MLS/HR Vancomycin HCl 250 ml @ 250 mls/hr Q12H IV 12/25/24 20:00 12/26/24 07:35 250 MLS/HR Insulin Glargine 30 units DAILY@1000 SC 12/26/24 11:45 12/26/24 11:53 30 UNITS Diagnostic Test (Pha) 1 strip ACHS 12/26/24 17:00 12/26/24 16:38 1 STRIP Insulin Human Regular HS SC 12/26/24 22:00 Insulin Human Regular AC SC 12/26/24 17:00 12/26/24 16:53 3 UNITS Examination: GENERAL:Normal, HEENT:Normal, NECK:Normal, LUNGS:Normal, CVS:Normal, ABDOMEN:Normal, MSK:Normal, SKIN:Normal, NEURO:Normal, :Normal laboratory and microbiology Laboratory Tests 12/26/24 15:16 12/26/24 03:00 Test 12/26/24 15:16 Range/Units Serum Glucose 166 H 74-106 mg/dL Microbiology Date/Time Source Procedure Growth Status 12/25/24 10:00 Blood Blood Culture - Preliminary NO GROWTH AFTER 24 HOURS OF INCUBATION. Resulted 12/25/24 08:30 Urine - [place] Urine Culture - Preliminary Resulted 12/25/24 07:45 Nose MRSA Screen - Final Complete Problem List/Assessment/Plan Problem List/Assessment/Plan Neurology #Acute metabolic/hypertensive encephalopathy due to severe diabetic ketoacidosis due to sepsis likely pneumonia/UTI, resolving -patient graded to telemetry -patient is currently on room air -current anion gap 8 -DC insulin drip, started subcutaneous Lantus 30 units with moderate sliding scale -consistent carbohydrate diet White blood Count improving, Continue IV antibiotics Fluconazole IV started for suspected fungal UTI Urine and blood cultures still pending. Cardiovascular: #acute metabolic/ hypertensive encephalopathy likely multifactorial due DKA to hypertensive emergency #atrial fibrillation was found on admission #hypertriglyceridemia #sinus tachycardia -blood pressure normalized -lifestyle modification and dietary habits counseling -current heart rate in the 110s Respiratory #Acute hypoxemic respiratory failure due to severe diabetic ketoacidosis likely due to sepsis likely pneumonia UTI #Hypocapnia due to respiratory alkalosis response due to metabolic alkalosis due to DKA -currently on room air -same as above Gastrointestinal: /kidney #acute kidney injury likely hemodynamically mediated due to the VMN, creatinine improving #nonobstructive right sided kidney stone, 5 mm -IV fluids -follow-up on kidney stone in the outpatient Endocrinology #Uncontrolled type 2 diabetes, hemoglobin A1c 12.3 #Severe diabetic ketoacidosis #Metabolic acidosis due to DKA with respiratory alkalosis compensation, increased anion gap, current AGAP 16 #Hypovolemic hyponatremia due to severe hyperglycemia #Ketonuria #Metabolic syndrome #Type 2 obesity -same as above -Lifestyle modification counseling and dietary habits counseling Infectious disease: #history of recent urethral whitish discharge likely due to fungal UTI #leukocytosis due to SIRS, possible sepsis due to UTI -empiric IV antibiotics -fluconazole IV -IV fluids -blood cultures and urine cultures pending Skin Case discussed with Dr. Tao Goals of care discussed with the patient and sister for 36 minutes Code status: DNR/DNI Plan discussed with: Patient, Other (sister) My Orders My Orders Orders - AMADOU TINOCO Procedure Category Date Status Time Insulin Lantus PHA 12/26/24 In Process (Glargine) (Lantus) 11:45 Ac Moderate Insulin AMANDEEP 12/26/24 In Process Scale (Not 11:36 Consistent DIET 12/26/24 Transmitted Carb(Ccho)Diabetes Lunch Glucose Blood PHA 12/26/24 In Process (Accu-Chek Comfort 17:00 Insulin R (Human) PHA 12/26/24 In Process (Insulin R) 22:00 Insulin R (Human) PHA 12/26/24 In Process (Insulin R) 17:00 Transfer Orders XFER 12/26/24 Transmitted 16:35 Basic Metabolic Panel LAB 12/27/24 Verified 04:00 AMADOU TINOCO RESIDENT Dec 26, 2024 19:34
[2024-12-26] MEDS: VANCOMYCIN 1GM/250ML KIT 250 ML IV SCH (22:00)
[2024-12-26 23:07] LABS: Chlamydia Trachomatis, NAA Negative (Negative); Neisseria gonorrhoeae, NAA Negative (Negative)
[2024-12-27] VITALS (8 sets, daily range): BP systolic 120–151; BP diastolic 81–98; PULSE 99–124; RESP 15–19; TEMP 98–98.7; O2SAT 96–97
[2024-12-27] MEDS: PANTOPRAZOLE 40 MG TAB PO SCH (05:18)
[2024-12-27 07:29] LABS: Basophils # (auto) 0 10 ^3/uL (0-0.2); Basophils % (auto) 0.3 % (0.0-2.0); Eosinophils # (auto) 0 10 ^3/uL (0-0.8); Eosinophils % (auto) 0.1 % (0.0-7.0); Hemoglobin 12.9 g/dL (13.5-17.5); Lymphocytes # (auto) 0.8 10 ^3/uL (0.4-5.4); Lymphocytes % (auto) 5.6 % (10.0-50.0); Mean Corpuscular Hemoglobin 29.8 pg (28.0-32.0); Mean Corpuscular Volume 85.2 fL (80.0-100.0); Monocytes # (auto) 1.2 10 ^3/uL (0-1.3); Monocytes % (auto) 8.7 % (0.0-12.0); Neutrophils # (auto) 12.2 10 ^3/uL (1.6-8.6); Neutrophils % (auto) 85.3 % (37.0-80.0); Nucleated Red Blood Cells % 0.1 %; Platelet Count (auto) 324 10^3/uL (140-450); Red Blood Cells 4.34 10^6/uL (4.5-5.90); Red Cell Distribution Width 13.2 % (11.8-14.3); White Blood Cell 14.3 10^3/uL (4.4-10.8)
[2024-12-27 07:46] LABS: Anion Gap 13 (5-15); Carbon Dioxide 22 mmol/L (20-31); Chloride 100 mmol/L (98-107)
[2024-12-27 07:49] LABS: Calcium 8.4 mg/dL (8.7-10.4); Potassium 3.3 mmol/L (3.5-5.1); Sodium 135 mmol/L (136-145)
[2024-12-27 07:52] LABS: BUN/Creatinine Ratio 14.3 (10.0-20.0); Blood Urea Nitrogen 11 mg/dL (9-23)
[2024-12-27 07:53] LABS: Glucose 336 mg/dL (74-106)
[2024-12-27] MEDS: POTASSIUM EFFERVESENT TAB 25 MEQ PO ONE (10:23)
[2024-12-27] MEDS: InsuLIN REG 1unit/0.01ml Soln (100units/ml) SC SCH (11:47)
--- NOTE | 2024-12-27 13:07 | DVHPN2 ---
Subjective The patient is seen and examined at bedside. No change overnight. Reviewed: Care Plan, H&P, Labs, Medications, Previous Orders, Radiology Changes from previous H/P or p: No Changes Eyes: No Pain, No Vision change, No Conjunctivae inflammation, No Eyelid inflammation, No Other, No Redness ENT: No Ear pain, No Ear discharge, No Nose pain, No Nose discharge, No Nose congestion, No Mouth pain, No Mouth swelling, No Throat pain, No Throat swelling, No Other Cardiovascular: No Chest Pain, No Palpitations, No Orthopnea, No Paroxysmal Noc. Dyspnea, No Edema, No Lt Headedness, No Other Respiratory: No Cough, No Dry; Shortness of breath; No SOB with excertion, No Wheezing, No Hemoptysis, No Pleuritic Pain, No Sputum, No Other Gastrointestinal: No Nausea, No Vomiting, No Abdominal Pain, No Diarrhea, No Constipation, No Melena, No Hematochezia, No Other Genitourinary: No Dysuria, No Frequency, No Incontinence, No Hematuria, No Retention, No Other Musculoskeletal: No other, No neck pain, No shoulder pain, No arm pain, No back pain, No hand pain; leg pain; No foot pain Skin: No Rash, No Lesions, No Jaundice, No Bruising, No Other Objective Vitals Vital Signs Date Time Temp Pulse Resp B/P (MAP) Pulse Ox O2 Delivery O2 Flow Rate FiO2 12/27/24 12:43 98.1 110 15 140/83 (102) 96 98.1 12/26/24 20:00 Room Air* 0 21 Intake/Output Intake and Output 12/27/24 07:00 Intake Total 2950 ml Output Total 1350 ml Balance 1600 ml Intake Oral 980 ml IV Total 1970 ml Output Urine Total 1350 ml # Voids 1 General Appearance: Alert, No acute distress HEENT: Atraumatic, PERRLA, EOMI, Mucous membr. moist/pink Neck: Supple Lungs: Clear to auscultation, Normal air movement Cardiovascular: Regular rate, Normal S1, Normal S2, No murmurs, Gallops, Rubs Abdomen: Normal bowel sounds, Soft, No tenderness Neuro: Cranial nerves 3-12 NL Psych/Mental Status: Mental status NL Medications Current Medications Medications Dose Ordered Sig/Loly Route Start Time Stop Time Status Last Admin Dose Admin Acetaminophen 650 mg Q6HP PRN PO 12/25/24 01:30 12/27/24 05:18 650 MG Dextrose 50 ml PRN PRN IV 12/25/24 05:00 Vancomycin HCl 0 ml @ 0 mls/hr UD IV 12/25/24 06:45 Meropenem 50 ml @ 17 mls/hr Q8HR IV 12/25/24 22:00 12/27/24 05:18 17 MLS/HR Insulin Glargine 30 units DAILY@1000 SC 12/26/24 11:45 12/27/24 10:19 30 UNITS Diagnostic Test (Pha) 1 strip ACHS 12/26/24 17:00 12/27/24 11:41 1 STRIP Insulin Human Regular HS SC 12/26/24 22:00 12/26/24 22:11 6 UNITS Pantoprazole Sodium 40 mg DAILY@0600 PO 12/27/24 06:00 12/27/24 05:18 40 MG Vancomycin HCl 250 ml @ 250 mls/hr Q8HR IV 12/26/24 22:00 12/27/24 05:20 250 MLS/HR Insulin Human Regular AC SC 12/27/24 11:30 12/27/24 11:47 16 UNITS Laboratory Results Laboratory Tests 12/27/24 06:21 Chemistry Test 12/26/24 15:16 12/27/24 06:21 Calcium Level 8.4 mg/dL (8.7-10.4) L 8.4 mg/dL (8.7-10.4) L Urinalysis Test 12/24/24 21:50 Urine Color Light-yellow (Yellow) Urine Clarity Clear (Clear) Urine pH 5.0 (5.0-9.0) Urine Specific [place] 1.022 (1.001-1.035) Urine Protein Trace (Negative) H Urine Ketones 4+ (Negative) H Urine Blood 2+ /uL (Negative) H Urine Nitrite Negative (Negative) Urine Bilirubin Negative (Negative) Urine Urobilinogen Normal mg/dL (Negative) Urine Leukocyte Esterase Negative /uL (Negative) Urine RBC 3 /hpf (0 - 3) Urine Microscopic WBC 1 /HPF (0-3) Urine Squamous Epithelial Cells Few /hpf (<5) Urine Bacteria None seen /hpf (None Seen) Urine Mucus Few (None Seen) Urine Yeast (Budding) Occasional /hpf (None Urine Glucose 4+ mg/dL (Normal) H Microbiology Microbiology Date/Time Source Procedure Growth Status 12/25/24 10:00 Blood Blood Culture - Preliminary Staphylococcus aureus Resulted 12/25/24 08:30 Urine - [place] Urine Culture - Preliminary Resulted 12/25/24 07:45 Nose MRSA Screen - Final Complete Labs and/or images reviewed: Labs reviewed by me Assessment/Plan Assessment/Plan Neurology #Acute metabolic/hypertensive encephalopathy due to severe diabetic ketoacidosis due to sepsis likely pneumonia/UTI, resolving -patient graded to telemetry -patient is currently on room air -current anion gap 8 -DC insulin drip, started subcutaneous Lantus 30 units with moderate sliding scale -consistent carbohydrate diet White blood Count improving, Continue IV antibiotics Fluconazole IV started for suspected fungal UTI Urine and blood cultures still pending. Cardiovascular: #acute metabolic/ hypertensive encephalopathy likely multifactorial due DKA to hypertensive emergency #atrial fibrillation was found on admission #hypertriglyceridemia #sinus tachycardia -blood pressure normalized -lifestyle modification and dietary habits counseling -current heart rate in the 110s Respiratory #Acute hypoxemic respiratory failure due to severe diabetic ketoacidosis likely due to sepsis likely pneumonia UTI #Hypocapnia due to respiratory alkalosis response due to metabolic alkalosis due to DKA -currently on room air -same as above Gastrointestinal: /kidney #acute kidney injury likely hemodynamically mediated due to the VMN, creatinine improving #nonobstructive right sided kidney stone, 5 mm -IV fluids -follow-up on kidney stone in the outpatient Endocrinology #Uncontrolled type 2 diabetes, hemoglobin A1c 12.3 #Severe diabetic ketoacidosis #Metabolic acidosis due to DKA with respiratory alkalosis compensation, increased anion gap, current AGAP 16 #Hypovolemic hyponatremia due to severe hyperglycemia #Ketonuria #Metabolic syndrome #Type 2 obesity -same as above -Lifestyle modification counseling and dietary habits counseling Infectious disease: #history of recent urethral whitish discharge likely due to fungal UTI #leukocytosis due to SIRS, possible sepsis due to UTI -empiric IV antibiotics -fluconazole IV -IV fluids -blood cultures and urine cultures pending Continuing current management. This medical document was created using an electronic medical record system with [employer] direct computerized dictation system. Although this document has been carefully reviewed, there may still be some phonetic and typographical errors. These areas are purely typographical due to imperfections of the software programs, and do not reflect any compromise in the patient's medical care. Plan discussed with: Patient Date of Service: Dec 27, 2024 Billing Provider: JOÃO CHRISTIANSON MD Common Visit Codes: [id number] INP/OBS CARE(HIGH) JOÃO CHRISTIANSON MD Dec 27, 2024 13:07
--- NOTE | 2024-12-27 14:55 | DVHSR ---
APPROVED REPORT EXAM: Two-dimensional and M-mode echocardiogram with Doppler and color Doppler. Blood Pressure: 140/83 mmHg INDICATION Bacterimia and Sepsis. check for EF and vegitations. RISK FACTORS Obesity: Height: 5'10, Weight: 250 DIMENSIONS LVDd4.1 (3.8-5.7cm)LA (2D)3.5 (1.9-4.0cm)Aortic Root3.2 (2.0-3.7cm) LVDs2.5 (2.5-4.0cm)LA (MM) (1.9-4.0cm)Aortic Cusp Exc1.9 (1.5-2.0cm) EF (%) 60.0 (55-70%)Rt. Atrium2.9 (1.9-4.0cm)Asc. Aorta3.0 cm IVSd1.1 (0.7-1.1cm)RV (D)4.2 (1.8-2.4cm) PWd1.1 (0.7-1.1cm) Mitral Valve MitralMitral Stenosis E wave0.80m/sMV Mean GR.mmHg A wave0.94m/sMV Peak GR.mmHg E/A ratio0.92D MVAcm2 DECEL [id number] 1/2 Timems Aortic Valve Aortic ValveAortic Stenosis V11.19m/Jett Mean GR.5mmHg V21.37m/Jett Peak GR.7mmHg LVOT Diameter2.2 (1.8-2.4cm)Doppler AVA3.30cm2 Pulmonic Valve V21.04m/s Other Information Quality : Technically Difficult StudyRhythm : Technically limited study due to patient position.body habitus. Conclusion lvef 65% by visual estimate RV enlarged mild sulaiman lfunction normal atria no severe valve abnormalities noted
[2024-12-27] MEDS: MORPHINE SULFATE INJ 2 MG/ml SYRG IV PRN (17:18)
[2024-12-28] VITALS (8 sets, daily range): BP systolic 132–150; BP diastolic 77–88; PULSE 93–113; RESP 18–20; TEMP 97.9–98.8; O2SAT 96–97
[2024-12-28 09:39] LABS: Basophils # (auto) 0.1 10 ^3/uL (0-0.2); Basophils % (auto) 0.6 % (0.0-2.0); Eosinophils # (auto) 0 10 ^3/uL (0-0.8); Eosinophils % (auto) 0.2 % (0.0-7.0); Hematocrit 37.8 % (41.0-53.0); Hemoglobin 13.1 g/dL (13.5-17.5); Lymphocytes % (auto) 6.1 % (10.0-50.0); Mean Corpuscular Hemoglobin 29.5 pg (28.0-32.0); Mean Corpuscular Hgb Conc. 34.7 g/dL (32.0-36.0); Monocytes # (auto) 1.7 10 ^3/uL (0-1.3); Monocytes % (auto) 10.8 % (0.0-12.0); Neutrophils # (auto) 13.3 10 ^3/uL (1.6-8.6); Neutrophils % (auto) 82.3 % (37.0-80.0); Platelet Count (auto) 330 10^3/uL (140-450); Red Blood Cells 4.45 10^6/uL (4.5-5.90); White Blood Cell 16.2 10^3/uL (4.4-10.8)
--- NOTE | 2024-12-28 12:31 | DVHPN2 ---
Subjective The patient is seen and examined at bedside. No change overnight. Reviewed: Care Plan, H&P, Labs, Medications, Previous Orders, Radiology Changes from previous H/P or p: No Changes Eyes: No Pain, No Vision change, No Conjunctivae inflammation, No Eyelid inflammation, No Other, No Redness ENT: No Ear pain, No Ear discharge, No Nose pain, No Nose discharge, No Nose congestion, No Mouth pain, No Mouth swelling, No Throat pain, No Throat swelling, No Other Cardiovascular: No Chest Pain, No Palpitations, No Orthopnea, No Paroxysmal Noc. Dyspnea, No Edema, No Lt Headedness, No Other Respiratory: No Cough, No Dry; Shortness of breath; No SOB with excertion, No Wheezing, No Hemoptysis, No Pleuritic Pain, No Sputum, No Other Gastrointestinal: No Nausea, No Vomiting, No Abdominal Pain, No Diarrhea, No Constipation, No Melena, No Hematochezia, No Other Genitourinary: No Dysuria, No Frequency, No Incontinence, No Hematuria, No Retention, No Other Musculoskeletal: No other, No neck pain, No shoulder pain, No arm pain, No back pain, No hand pain; leg pain; No foot pain Skin: No Rash, No Lesions, No Jaundice, No Bruising, No Other Objective Vitals Vital Signs Date Time Temp Pulse Resp B/P (MAP) Pulse Ox O2 Delivery O2 Flow Rate FiO2 12/28/24 09:07 99 18 150/83 12/28/24 09:00 98.8 97 98.8 12/28/24 08:00 Room Air* 0 21 Intake/Output Intake and Output 12/28/24 07:00 Intake Total 2200 ml Output Total 1400 ml Balance 800 ml Intake Oral 1600 ml IV Total 600 ml Output Urine Total 1400 ml # Voids 1 General Appearance: Alert, No acute distress HEENT: Atraumatic, PERRLA, EOMI, Mucous membr. moist/pink Neck: Supple Lungs: Clear to auscultation, Normal air movement Cardiovascular: Regular rate, Normal S1, Normal S2, No murmurs, Gallops, Rubs Abdomen: Normal bowel sounds, Soft, No tenderness Neuro: Cranial nerves 3-12 NL Psych/Mental Status: Mental status NL Medications Current Medications Medications Dose Ordered Sig/Loly Route Start Time Stop Time Status Last Admin Dose Admin Acetaminophen 650 mg Q6HP PRN PO 12/25/24 01:30 12/28/24 05:38 650 MG Dextrose 50 ml PRN PRN IV 12/25/24 05:00 Vancomycin HCl 0 ml @ 0 mls/hr UD IV 12/25/24 06:45 Meropenem 50 ml @ 17 mls/hr Q8HR IV 12/25/24 22:00 12/28/24 05:51 17 MLS/HR Insulin Glargine 30 units DAILY@1000 SC 12/26/24 11:45 12/28/24 09:13 30 UNITS Diagnostic Test (Pha) 1 strip ACHS 12/26/24 17:00 12/28/24 11:55 1 STRIP Insulin Human Regular HS SC 12/26/24 22:00 12/27/24 21:37 6 UNITS Pantoprazole Sodium 40 mg DAILY@0600 PO 12/27/24 06:00 12/28/24 05:38 40 MG Vancomycin HCl 250 ml @ 250 mls/hr Q8HR IV 12/26/24 22:00 12/28/24 05:51 250 MLS/HR Insulin Human Regular AC SC 12/27/24 11:30 12/28/24 12:00 8 UNITS Morphine Sulfate 1 mg Q6HP PRN IV 12/27/24 16:15 12/28/24 09:07 1 MG Laboratory Results Laboratory Tests 12/27/24 06:21 12/28/24 09:09 Urinalysis Test 12/24/24 21:50 Urine Color Light-yellow (Yellow) Urine Clarity Clear (Clear) Urine pH 5.0 (5.0-9.0) Urine Specific [place] 1.022 (1.001-1.035) Urine Protein Trace (Negative) H Urine Ketones 4+ (Negative) H Urine Blood 2+ /uL (Negative) H Urine Nitrite Negative (Negative) Urine Bilirubin Negative (Negative) Urine Urobilinogen Normal mg/dL (Negative) Urine Leukocyte Esterase Negative /uL (Negative) Urine RBC 3 /hpf (0 - 3) Urine Microscopic WBC 1 /HPF (0-3) Urine Squamous Epithelial Cells Few /hpf (<5) Urine Bacteria None seen /hpf (None Seen) Urine Mucus Few (None Seen) Urine Yeast (Budding) Occasional /hpf (None Urine Glucose 4+ mg/dL (Normal) H Microbiology Microbiology Date/Time Source Procedure Growth Status 12/25/24 10:00 Blood Blood Culture - Final Staphylococcus aureus Complete 12/25/24 08:30 Urine - [place] Urine Culture - Preliminary Resulted 12/25/24 07:45 Nose MRSA Screen - Final Complete Labs and/or images reviewed: Labs reviewed by me Assessment/Plan Assessment/Plan Neurology #Acute metabolic/hypertensive encephalopathy due to severe diabetic ketoacidosis due to sepsis likely pneumonia/UTI, resolving -patient graded to telemetry -patient is currently on room air -current anion gap 8 -DC insulin drip, started subcutaneous Lantus 30 units with moderate sliding scale -consistent carbohydrate diet White blood Count improving, Continue IV antibiotics Fluconazole IV started for suspected fungal UTI Urine and blood cultures still pending. Cardiovascular: #acute metabolic/ hypertensive encephalopathy likely multifactorial due DKA to hypertensive emergency #atrial fibrillation was found on admission #hypertriglyceridemia #sinus tachycardia -blood pressure normalized -lifestyle modification and dietary habits counseling -current heart rate in the 110s Respiratory #Acute hypoxemic respiratory failure due to severe diabetic ketoacidosis likely due to sepsis likely pneumonia UTI #Hypocapnia due to respiratory alkalosis response due to metabolic alkalosis due to DKA -currently on room air -same as above Gastrointestinal: /kidney #acute kidney injury likely hemodynamically mediated due to the VMN, creatinine improving #nonobstructive right sided kidney stone, 5 mm -IV fluids -follow-up on kidney stone in the outpatient Endocrinology #Uncontrolled type 2 diabetes, hemoglobin A1c 12.3 #Severe diabetic ketoacidosis #Metabolic acidosis due to DKA with respiratory alkalosis compensation, increased anion gap, current AGAP 16 #Hypovolemic hyponatremia due to severe hyperglycemia #Ketonuria #Metabolic syndrome #Type 2 obesity -same as above -Lifestyle modification counseling and dietary habits counseling Infectious disease: #history of recent urethral whitish discharge likely due to fungal UTI #leukocytosis due to SIRS, possible sepsis due to UTI -empiric IV antibiotics -fluconazole IV -IV fluids -blood cultures and urine cultures pending Continuing current management. Discharge planning. Plan discussed with: Patient My Orders Orders - JOÃO CHRISTIANSON MD Procedure Category Date Status Time Morphine Sulfate PHA 12/27/24 In Process Injection 16:15 Date of Service: Dec 28, 2024 Billing Provider: JOÃO CHRISTIANSON MD Common Visit Codes: [id number] INP/OBS CARE(HIGH) JOÃO CHRISTIANSON MD Dec 28, 2024 12:31
--- NOTE | 2024-12-28 15:34 | MEDREC ---
[facility] ASP Intervention Section I [facility] ASP Intervention: Deescalate AB based on CS (PLEASE CONSIDER DE-ESCALATION BASED ON CULTURE RESULTS ) ROBERTA SOTO PHARMACIST Dec 28, 2024 15:34
[2024-12-29] VITALS (7 sets, daily range): BP systolic 128–147; BP diastolic 72–84; PULSE 85–103; RESP 17–18; TEMP 98.2–98.6; O2SAT 95–98
[2024-12-29 06:33] LABS: Basophils # (auto) 0.1 10 ^3/uL (0-0.2); Basophils % (auto) 0.3 % (0.0-2.0); Eosinophils # (auto) 0.1 10 ^3/uL (0-0.8); Eosinophils % (auto) 0.3 % (0.0-7.0); Hemoglobin 13.7 g/dL (13.5-17.5); Lymphocytes # (auto) 1.1 10 ^3/uL (0.4-5.4); Lymphocytes % (auto) 6.9 % (10.0-50.0); Mean Corpuscular Hemoglobin 29.5 pg (28.0-32.0); Mean Corpuscular Hgb Conc. 34.2 g/dL (32.0-36.0); Mean Corpuscular Volume 86.3 fL (80.0-100.0); Monocytes % (auto) 12.3 % (0.0-12.0); Neutrophils # (auto) 12.9 10 ^3/uL (1.6-8.6); Neutrophils % (auto) 80.2 % (37.0-80.0); Platelet Count (auto) 367 10^3/uL (140-450); Red Blood Cells 4.64 10^6/uL (4.5-5.90); White Blood Cell 16.1 10^3/uL (4.4-10.8)
[2024-12-29 06:34] LABS: Anion Gap 11 (5-15); Carbon Dioxide 29 mmol/L (20-31)
[2024-12-29 06:35] LABS: Calcium 8.8 mg/dL (8.7-10.4)
[2024-12-29 06:40] LABS: BUN/Creatinine Ratio 12.2 (10.0-20.0)
[2024-12-29 06:41] LABS: Blood Urea Nitrogen 9 mg/dL (9-23); Chloride 94 mmol/L (98-107); Glucose 253 mg/dL (74-106); Potassium 3.1 mmol/L (3.5-5.1); Sodium 134 mmol/L (136-145)
[2024-12-29] MEDS: INSULIN LANTUS (GLARGINE) 1 /0.01ml (100units/ml) SC SCH (10:00)
[2024-12-29 11:13] LABS: Albumin 3.4 g/dL (3.2-4.8); Bilirubin, Total 0.3 mg/dL (0.2-1.0); Total Protein 6.2 g/dL (5.7-8.2)
[2024-12-29] MEDS: amLODIPine BESYLATE 5 MG TAB PO SCH (14:08)
[2024-12-29] MEDS: LOSARTAN POTASSIUM 25 MG TAB PO ONE (14:08)
[2024-12-29] MEDS: POTASSIUM EFFERVESENT TAB 25 MEQ PO ONE (14:35)
[2024-12-29] MEDS: LORazepam 2MG/ML-1ML VIAL IV ONE (15:45)
--- NOTE | 2024-12-29 17:11 | DVH ---
EXAM: MRI MRI R HIP WO CONTRAST HISTORY: RIGHT HIP COMPARISON: None TECHNIQUE: Multiplanar, multisequence MRI was performed. FINDINGS: The femoral heads are spherical morphology and symmetrically aligned. There is no joint effusion. No lytic or blastic lesions of the bony structures of the hips or pelvic ring There is a large multiloculated area of fluid in the subcutaneous tissues in the proximal posterior l ateral right thigh extending deep into the gluteal musculature and adductor musculature of the thigh. There is no destructive lesions of the proximal right femur. IMPRESSION: 1. Large inflammatory soft tissue process involving the subcutaneous tissues of the posterolateral pr oximal right thigh extending deep into the right gluteal and abductor musculature. No involvement of underlying hip joint or bone
--- NOTE | 2024-12-29 21:58 | DVHPNRES ---
Progress Note Date Seen: Dec 29, 2024 Resident Creating Document: AMADOU TINOCO RESIDENT Has the PT tested + for MRSA If YES, has PT been informed?: Yes Medical Necessity Reason Pt with a Central, PICC or Fol: No The following are medically ne: Robles Catheter Reason for robles catheter: Strict I&O Subjective Review of Systems Patient was examined at bedside he reports improvement in his symptoms currently on morphine for pain management. White blood cell count still high more than 16, patient will continue vancomycin, blood culture were positive for staph or risk. MRI was ordered. Results: Large multiloculated area of fluid in the subcutaneous tissues in the proximal posterior lateral right thigh extending deep into the gluteal musculature and adductor musculature of the thigh. There is no destructive lesions of the proximal right femur. Patient reports: Feels better Changes from previous H/P or p: Changes Objective vital signs Vital Sign Date Time Temp Pulse Resp B/P (MAP) Pulse Ox O2 Delivery O2 Flow Rate FiO2 12/29/24 21:00 98.4 100 17 138/84 (102) 97 98.4 12/29/24 08:00 Room Air* 0 21 Total Intake and Output 12/28/24 12/28/24 12/29/24 15:00 23:00 07:00 Intake Total 1130 ml 2110 ml 850 ml Output Total 2000 ml 1900 ml Balance 1130 ml 110 ml -1050 ml medications Current Medications Medications Dose Ordered Sig/Loly Route Start Time Stop Time Status Last Admin Dose Admin Acetaminophen 650 mg Q6HP PRN PO 12/25/24 01:30 12/29/24 18:25 650 MG Dextrose 50 ml PRN PRN IV 12/25/24 05:00 Vancomycin HCl 0 ml @ 0 mls/hr UD IV 12/25/24 06:45 Diagnostic Test (Pha) 1 strip ACHS 12/26/24 17:00 12/29/24 21:29 1 STRIP Insulin Human Regular HS SC 12/26/24 22:00 12/29/24 21:30 8 UNITS Pantoprazole Sodium 40 mg DAILY@0600 PO 12/27/24 06:00 12/29/24 06:24 40 MG Vancomycin HCl 250 ml @ 250 mls/hr Q8HR IV 12/26/24 22:00 12/29/24 14:10 250 MLS/HR Insulin Human Regular AC SC 12/27/24 11:30 12/29/24 17:53 12 UNITS Morphine Sulfate 1 mg Q6HP PRN IV 12/27/24 16:15 12/29/24 06:20 1 MG Insulin Glargine 40 units DAILY@1000 SC 12/29/24 10:00 12/29/24 10:00 40 UNITS Amlodipine Besylate 5 mg DAILY PO 12/29/24 10:00 12/29/24 14:08 5 MG Losartan Potassium 50 mg DAILY PO 12/30/24 10:00 Examination General Appearance: Alert, No acute distress HEENT: Atraumatic, PERRLA, EOMI, Mucous membr. moist/pink Neck: Supple Lungs: Clear to auscultation, Normal air movement Cardiovascular: Regular rate, Normal S1, Normal S2, No murmurs, Gallops, Rubs Abdomen: Normal bowel sounds, Soft, No tenderness Musculoskeletal: Pain in the right hip, that increases on active movement Neuro: Cranial nerves 3-12 NL Psych/Mental Status: Mental status NL laboratory and microbiology Laboratory Tests 12/29/24 05:15 Test 12/29/24 05:15 Range/Units Serum Glucose 253 H 74-106 mg/dL Microbiology Date/Time Source Procedure Growth Status 12/27/24 15:30 Blood Blood Culture - Preliminary NO GROWTH AFTER 48 HOURS OF INCUBATION. Resulted 12/25/24 08:30 Urine - [place] Urine Culture - Final Complete 12/25/24 07:45 Nose MRSA Screen - Final Complete Problem List/Assessment/Plan Problem List/Assessment/Plan Neurology #Acute metabolic/hypertensive encephalopathy due to severe diabetic ketoacidosis due to sepsis likely pneumonia/UTI, resolving -patient graded to telemetry -patient is currently on room air -current anion gap 8 -DC insulin drip, started subcutaneous Lantus 30 units with moderate sliding scale -consistent carbohydrate diet White blood Count improving, Continue IV antibiotics Fluconazole IV started for suspected fungal UTI Urine and blood cultures still pending. Cardiovascular: #acute metabolic/ hypertensive encephalopathy likely multifactorial due DKA to hypertensive emergency #atrial fibrillation was found on admission #hypertriglyceridemia #sinus tachycardia -blood pressure normalized -lifestyle modification and dietary habits counseling -current heart rate in the 110s Respiratory #Acute hypoxemic respiratory failure due to severe diabetic ketoacidosis likely due to sepsis likely pneumonia UTI #Hypocapnia due to respiratory alkalosis response due to metabolic alkalosis due to DKA -currently on room air -same as above Gastrointestinal: /kidney #acute kidney injury likely hemodynamically mediated due to the VMN, creatinine improving #nonobstructive right sided kidney stone, 5 mm -IV fluids -follow-up on kidney stone in the outpatient Endocrinology #Uncontrolled type 2 diabetes, hemoglobin A1c 12.3 #Severe diabetic ketoacidosis #Metabolic acidosis due to DKA with respiratory alkalosis compensation, increased anion gap, current AGAP 16 #Hypovolemic hyponatremia due to severe hyperglycemia #Ketonuria #Metabolic syndrome #Type 2 obesity -same as above -Lifestyle modification counseling and dietary habits counseling Infectious disease: #history of recent urethral whitish discharge likely due to fungal UTI #leukocytosis due to SIRS, possible sepsis due to UTI -empiric IV antibiotics -IV fluids -blood cultures and urine cultures pending Musculoskeletal: #Right Hip pain #Large multiloculated area of fluid in the subcutaneous tissues in the proximal posterior lateral right thigh extending deep into the gluteal musculature and adductor musculature of the thigh. Case discussed with Dr. Epstein Goals of care discussed with the patient and sister for 36 minutes Code status: DNR/DNI Plan discussed with: Patient, Other (sister) Dietary Evaluation Review Comments: 1) Refer to outpatient RD/[facility] for diabetes education and weight management 2) Continue to monitor labs and PO intake Expected Outcomes/Goals: 1) appetite and labs to improve 2) f/u in 3-5 days Date of Service: Dec 29, 2024 Billing Provider: DAMEON EPSTEIN MD Common Visit Codes: [id number] INP/OBS CARE(HIGH) Secondary Visit Codes: [id number] CARE PLAN 30 MINUTES AMADOU TINOCO RESIDENT Dec 29, 2024 21:58 DAMEON EPSTEIN MD Dec 30, 2024 14:20
[2024-12-30] VITALS (8 sets, daily range): BP systolic 101–136; BP diastolic 63–86; PULSE 70–103; RESP 17–20; TEMP 97.7–98.7; O2SAT 93–100
[2024-12-30 07:33] LABS: Hematocrit 39.9 % (41.0-53.0); Hemoglobin 13.5 g/dL (13.5-17.5); Mean Corpuscular Hemoglobin 29.4 pg (28.0-32.0); Mean Corpuscular Hgb Conc. 33.9 g/dL (32.0-36.0); Mean Corpuscular Volume 86.8 fL (80.0-100.0); Platelet Count (auto) 397 10^3/uL (140-450); Red Cell Distribution Width 12.7 % (11.8-14.3); White Blood Cell 13.2 10^3/uL (4.4-10.8)
[2024-12-30 07:36] LABS: Band Neutrophils % (manual) 0; Basophils % (manual) 0 (0.0-2.0); Blast Cells 0; Eosinophils % (manual) 0 (0-7); Metamyelocytes % 0; Myelocytes % 0; Promyelocytes % 0; Reactive Lymphocytes 0
[2024-12-30 07:47] LABS: Anion Gap 10 (5-15); Carbon Dioxide 29 mmol/L (20-31)
[2024-12-30 07:48] LABS: Calcium 8.7 mg/dL (8.7-10.4)
[2024-12-30 07:52] LABS: BUN/Creatinine Ratio 14.9 (10.0-20.0); Blood Urea Nitrogen 11 mg/dL (9-23)
[2024-12-30 07:53] LABS: Chloride 95 mmol/L (98-107); Glucose 234 mg/dL (74-106); Potassium 3.4 mmol/L (3.5-5.1); Sodium 134 mmol/L (136-145)
[2024-12-30 08:13] LABS: Lymphocytes % (manual) 18 (10.0-50.0); Monocytes % (manual) 14 (0-12); Platelet Estimate Adequate
[2024-12-30] MEDS: LOSARTAN POTASSIUM 25 MG TAB PO SCH (09:45)
[2024-12-30] MEDS ORDERED: LOSARTAN POTASSIUM 25 MG TAB PO SCH (10:00)
[2024-12-30] MEDS: INSULIN LANTUS (GLARGINE) 1 /0.01ml (100units/ml) SC SCH (14:45)
[2024-12-30] MEDS: POTASSIUM EFFERVESENT TAB 25 MEQ PO ONE (14:55)
[2024-12-30] MEDS: VANCOMYCIN 1GM/250ML KIT 250 ML IV SCH (15:07)
[2024-12-30 16:04] LABS: Bilirubin, Direct 0.1 mg/dL (<0.3)
--- NOTE | 2024-12-30 18:11 | DVHCONRES ---
Date Seen: Dec 30, 2024 Resident Creating Document: QUINCY GRANDA Jr., MD Referring Physician Ans[place] Reason for Consultation Right leg pain rule out necrotizing fasciitis History of Present Illness This is a 49-year-old male with recent diagnosis of diabetes mellitus per paramedics, patient denied any additional PMH of relevance. Patient will be admitted to ICU status for assessment and management of DKA. The patient describes having a bright sided hip pain for the last month and swelling. Of note over the last 48 hours he states he noted turn red. He denies any current fevers or chills. 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 Allergies: Coded Allergies: NO KNOWN ALLERGIES (Unverified , 12/24/24) Current Medications Current Medications Medications (Trade) Dose Ordered Sig/Loly Route PRN Reason Start Time Stop Time Status Last Admin Losartan Potassium (Cozaar Tablet) 25 mg DAILY PO 12/30/24 10:00 12/29/24 15:34 DC Losartan Potassium (Cozaar Tablet) 50 mg DAILY PO 12/30/24 10:00 12/30/24 14:35 DC 12/30/24 09:45 Vancomycin HCl 250 ml @ 250 mls/hr Q10H IV 12/30/24 15:00 12/30/24 15:07 Losartan Potassium (Cozaar Tablet) 25 mg DAILY PO 12/31/24 10:00 Morphine Sulfate 2 mg Q4HP PRN IV MODERATE PAIN (4-6 PAIN SCALE) 12/30/24 14:15 Piperacillin Sod/ Tazobactam Sod 100 ml @ 25 mls/hr Q8H IV 12/30/24 23:00 Insulin Glargine (Lantus) 45 units DAILY@1000 SC 12/30/24 14:45 Review of Systems All systems reviewed otherwise negative other well as in the HPI. Vital Signs Vital Signs Date Time Temp Pulse Resp B/P (MAP) Pulse Ox O2 Delivery O2 Flow Rate FiO2 12/30/24 17:00 97.9 98 18 101/63 (76) 96 97.9 12/29/24 20:00 Room Air* 0 21 Physical Exam Head eyes ears nose and throat exam vitals are nonicteric conjunctiva is pink neck was supple no JVD no lymphadenopathy no carotid bruits lungs are clear to auscultation heart was regular rate and rhythm abdomen is soft nontender with no pulsatile abdominal masses or bruits as lower extremities palpable femoral and pedal pulses bilaterally he has a right lateral hip swelling with some erythema mildly tender no evidence of crepitus. No evidence of wounds. Neurologically motor and sensory grossly intact Labs/Diagnostic Data Labs Test 12/30/24 15:59 12/30/24 05:54 12/29/24 20:53 12/29/24 05:15 Range/Units POC Glucose 312 H 70-106 mg/dl White Blood Count 13.2 H 4.4-10.8 10^3/uL Red Blood Count 4.60 4.5-5.90 10^6/uL Hemoglobin 13.5 13.5-17.5 g/dL Hematocrit 39.9 L 41.0-53.0 % Mean Corpuscular Volume 86.8 80.0-100.0 fL Mean Corpuscular Hemoglobin 29.4 28.0-32.0 pg Mean Corpuscular Hemoglobin Concent 33.9 32.0-36.0 g/dL Red Cell Distribution Width 12.7 11.8-14.3 % Platelet Count 397 140-450 10^3/uL Mean Platelet Volume 7.4 6.9-10.8 fL Neutrophils (%) (Auto) 37.0-80.0 % Lymphocytes (%) (Auto) 10.0-50.0 % Monocytes (%) (Auto) 0.0-12.0 % Basophils (%) (Auto) 0.0-2.0 % Neutrophils # (Auto) 1.6-8.6 10 ^3/uL Lymphocytes # (Auto) 0.4-5.4 10 ^3/uL Monocytes # (Auto) 0-1.3 10 ^3/uL Differential Total Cells Counted 100.0 100 Neutrophils % (Manual) 68 37.0-80.0 Band Neutrophils % (Manual) 0 Lymphocytes % (Manual) 18 10.0-50.0 Monocytes % (Manual) 14 H 0-12 Eosinophils % (Manual) 0 0-7 Basophils % (Manual) 0 0.0-2.0 Metamyelocytes % (manual) 0 Myelocytes % (Manual) 0 Promyelocytes % (Manual) 0 Blast Cells % (Manual) 0 Reactive Lymphocytes 0 Platelet Estimate Adequate Sodium Level 134 L 136-145 mmol/L Potassium Level 3.4 L 3.5-5.1 mmol/L Chloride Level 95 L 98-107 mmol/L Carbon Dioxide Level 29 20-31 mmol/L Anion Gap 10 5-15 Blood Urea Nitrogen 11 9-23 mg/dL Creatinine 0.74 0.700-1.30 mg/dL Glomerular Filtration Rate Calc 111 >90 mL/min BUN/Creatinine Ratio 14.9 10.0-20.0 Serum Glucose 234 H 74-106 mg/dL Calcium Level 8.7 8.7-10.4 mg/dL Vancomycin Level Trough 21.7 H 5-10 ug/mL Eosinophils (%) (Auto) 0.3 0.0-7.0 % Eosinophils # (Auto) 0.1 0-0.8 10 ^3/uL Basophils # (Auto) 0.1 0-0.2 10 ^3/uL Nucleated Red Blood Cells 0.0 % Total Bilirubin 0.3 0.2-1.0 mg/dL Direct Bilirubin 0.1 <0.3 mg/dL Aspartate Amino Transferase (AST) 14 13-40 U/L Alanine Aminotransferase (ALT) 16 7-40 U/L Alkaline Phosphatase 206 H 46-116 U/L Total Protein 6.2 5.7-8.2 g/dL Albumin 3.4 3.2-4.8 g/dL Test 12/26/24 09:45 12/25/24 10:00 12/25/24 09:50 12/25/24 08:30 Range/Units Magnesium Level 1.9 1.6-2.6 mg/dL Lactic Acid Level 3.3 *H 0.4-2.0 mmol/L Plasma/Serum Blood Alcohol < 3.0 <10 mg/dL HIV (1&2) Antibody Negative Negative Blood Gas Specimen Type Arterial Blood Gas Sample Site Left radial Blood Gas Patient Temperature 37.0 Arterial Blood Date Drawn [id number] Arterial Blood pH 7.265 L 7.350-7.450 Arterial Blood Partial Pressure CO2 18.1 *L 35.0-48.0 mmHg Arterial Blood Partial Pressure O2 88.5 83.0-108.0 mmHg Arterial Blood HCO3 8.0 L 21.0-28.0 mmol/L Arterial Blood Oxygen Saturation 97.4 94.0-98.0 % Arterial Blood Base Excess -16.3 L -2.0-3.0 mmol/L Arterial Blood Oxyhemoglobin 96.5 94.0-98.0 % Arterial Blood Carboxyhemoglobin 0.7 0.5-1.5 % Arterial Blood Methemoglobin 0.2 0.0-1.5 % Alejandro Test Yes Blood Gas Total Hemoglobin 15.10 13.5-17.5 g/dL Blood Gas Modality Room air FiO2 % 21.0 Blood Gas Critical Value Read Back Yes Blood Gas Notified Whom prashant Mcfadden md Blood Gas Notified Time [id number] Blood Gas Notified By [employer] Weaver alexandra harvey Urine Opiates Screen Neg NEGATIVE Urine Fentanyl Screen Neg NEGATIVE Urine Barbiturates Screen Neg NEGATIVE Urine Phencyclidine Screen Neg NEGATIVE Urine Amphetamines Screen Neg NEGATIVE Urine Benzodiazepines Screen Neg NEGATIVE Urine Cocaine Screen Neg NEGATIVE Urine Cannabinoids Screen Neg NEGATIVE Chlamydia trachomatis (JABIER) Negative Negative Neisseria gonorrhoeae (JABIER) Negative Negative Test 12/25/24 03:30 12/24/24 22:43 12/24/24 21:50 12/24/24 21:49 Range/Units Hemoglobin A1c 12.3 H <5.7 % A1C Triglycerides Level 237 H < 150 mg/dL Cholesterol Level 191 < 200 mg/dL LDL Cholesterol 83 < 100 mg/dL HDL Cholesterol 56 40-59 mg/dL Lipase 109 H 12-53 U/L Troponin I High Sensitivity 5 </=54 ng/L Urine Color Light-yellow Yellow Urine Clarity Clear Clear Urine pH 5.0 5.0-9.0 Urine Specific [place] 1.022 1.001-1.035 Urine Protein Trace H Negative Urine Ketones 4+ H Negative Urine Blood 2+ H Negative /uL Urine Nitrite Negative Negative Urine Bilirubin Negative Negative Urine Urobilinogen Normal Negative mg/dL Urine Leukocyte Esterase Negative Negative /uL Urine RBC 3 0 - 3 /hpf Urine Microscopic WBC 1 0-3 /HPF Urine Squamous Epithelial Cells Few <5 /hpf Urine Bacteria None seen None Seen /hpf Urine Mucus Few None Seen Urine Yeast (Budding) Occasional None Seen /hpf Urine Glucose 4+ H Normal mg/dL B-Type Natriuretic Peptide 46.71 0-100 pg/mL Beta-Hydroxybutyric Acid > 4.500 H < 0.4 mmol/L Microbiology Date/Time Source Procedure Growth Status 12/27/24 15:30 Blood Blood Culture - Preliminary NO GROWTH AFTER 72 HOURS OF INCUBATION. Resulted 12/25/24 08:30 Urine - [place] Urine Culture - Final Complete 12/25/24 07:45 Nose MRSA Screen - Final Complete EXAM: MRI MRI R HIP WO CONTRAST HISTORY: RIGHT HIP COMPARISON: None TECHNIQUE: Multiplanar, multisequence MRI was performed. FINDINGS: The femoral heads are spherical morphology and symmetrically aligned. There is no joint effusion. No lytic or blastic lesions of the bony structures of the hips or pelvic ring There is a large multiloculated area of fluid in the subcutaneous tissues in the proximal posterior lateral right thigh extending deep into the gluteal musculature and adductor musculature of the thigh. There is no destructive lesions of the proximal right femur. IMPRESSION: 1. Large inflammatory soft tissue process involving the subcutaneous tissues of the posterolateral proximal right thigh extending deep into the right gluteal and abductor musculature. No involvement of underlying hip joint or bone Assessment Right thigh soft tissue swelling. No current need for surgical intervention. Continue with broad-spectrum antibiotics. Strict glucose control. We will continue to monitor. Plan/Recommendation Right thigh soft tissue swelling. No current need for surgical intervention. Continue with broad-spectrum antibiotics. Strict glucose control. We will co ntinue to monitor. Plan discussed with: Patient QUINCY GRANDA Jr., MD Dec 30, 2024 18:10
[2024-12-30] MEDS: PIPERACILLIN-TAZOB 3.375GM 100 ML IV ONE (20:15)
--- NOTE | 2024-12-30 20:27 | DVH ---
Exam: US RIGHT LOWER EXTREMITY ULTRASOU Clinical History: FLUID COLLECTION IN THE RIGHT HIP Comparison: US RIGHT LOWER EXTREMITY ULTRASOU on DOS: 12/25/24 Technique: Targeted sonographic evaluation of the soft tissues of the right hip was obtained utilizing grayscal e and color Doppler imaging. Findings/Impression: Small volume fluid overlying the right hip. Diffuse subcutaneous soft-tissue edema and swelling.
[2024-12-30] MEDS: DOCUSATE SOD 100 MG CAP PO SCH (22:29)
[2024-12-30] MEDS: PIPERACILLIN-TAZOB 3.375GM 100 ML IV SCH (22:42)
--- NOTE | 2024-12-30 23:53 | DVHPNRES ---
Progress Note Date Seen: Dec 30, 2024 Resident Creating Document: AMADOU TINOCO RESIDENT Has the PT tested + for MRSA If YES, has PT been informed?: Yes Medical Necessity Reason Pt with a Central, PICC or Fol: No Reason for robles catheter: Strict I&O Subjective Review of Systems Patient was seen and examined at bedside, The patient describes having a right sided hip pain for the last 3 weeks that exacerbates on activity. Over the last 48 hours he states mentioned he felt a pop 2 days ago after which he noted turn red, warm and inflamed, otherwise the pain decreased compared to 2 days ago from 10/10 on activity to 2/10 to 3/10 now. Patient was seen by vascular team they decided no need for surgical intervention and continue with broad-spectrum antibiotics, strict glucose control, ultrasound was ordered, it showed small volume fluid overlying the right hip and diffuse subcutaneous soft-tissue edema and swelling. patient will continue con vanco and zosyn IV. Patient reports: No new complaints, Feels better Review of Systems: HEENT:Normal, CVS:Normal, RESPIRATORY:Normal, GI:Normal, :Normal, MSK:Abnormal, NEURO:Normal Objective vital signs Vital Sign Date Time Temp Pulse Resp B/P (MAP) Pulse Ox O2 Delivery O2 Flow Rate FiO2 12/30/24 17:00 97.9 98 18 101/63 (76) 96 97.9 12/30/24 08:10 Room Air* 0 21 Total Intake and Output 12/29/24 12/29/24 12/30/24 15:00 23:00 07:00 Intake Total 600 ml 2150 ml 1500 ml Output Total 1600 ml Balance 600 ml 550 ml 1500 ml medications Current Medications Medications Dose Ordered Sig/Loly Route Start Time Stop Time Status Last Admin Dose Admin Acetaminophen 650 mg Q6HP PRN PO 12/25/24 01:30 12/30/24 10:23 650 MG Dextrose 50 ml PRN PRN IV 12/25/24 05:00 Vancomycin HCl 0 ml @ 0 mls/hr UD IV 12/25/24 06:45 Diagnostic Test (Pha) 1 strip ACHS 12/26/24 17:00 12/30/24 22:30 1 STRIP Insulin Human Regular HS SC 12/26/24 22:00 12/30/24 22:41 8 UNITS Pantoprazole Sodium 40 mg DAILY@0600 PO 12/27/24 06:00 12/30/24 05:06 40 MG Insulin Human Regular AC SC 12/27/24 11:30 12/30/24 20:16 16 UNITS Vancomycin HCl 250 ml @ 250 mls/hr Q10H IV 12/30/24 15:00 12/30/24 15:07 250 MLS/HR Losartan Potassium 25 mg DAILY PO 12/31/24 10:00 Morphine Sulfate 2 mg Q4HP PRN IV 12/30/24 14:15 Piperacillin Sod/ Tazobactam Sod 100 ml @ 25 mls/hr Q8H IV 12/30/24 23:00 12/30/24 22:42 25 MLS/HR Insulin Glargine 45 units DAILY@1000 SC 12/30/24 14:45 Docusate Sodium 100 mg BID PO 12/30/24 22:00 12/30/24 22:29 100 MG Examination General Appearance: Alert, No acute distress Lungs: Clear to auscultation, Normal air movement Cardiovascular: Regular rate, Normal S1, Normal S2, No murmurs, Gallops, Rubs Abdomen: Normal bowel sounds, Soft, No tenderness Musculoskeletal: Right lateral hip swelling with some erythema mildly tender no evidence of crepitus. No evidence of wounds. Neuro: Cranial nerves 3-12 NL Psych/Mental Status: Mental status NL laboratory and microbiology Laboratory Tests 12/30/24 05:54 Test 12/30/24 05:54 Range/Units Serum Glucose 234 H 74-106 mg/dL Microbiology Date/Time Source Procedure Growth Status 12/27/24 15:30 Blood Blood Culture - Preliminary NO GROWTH AFTER 72 HOURS OF INCUBATION. Resulted 12/25/24 08:30 Urine - [place] Urine Culture - Final Complete 12/25/24 07:45 Nose MRSA Screen - Final Complete Problem List/Assessment/Plan Problem List/Assessment/Plan Neurology #Acute metabolic/hypertensive encephalopathy due to severe diabetic ketoacidosis due to sepsis likely pneumonia/UTI, resolved -patient is currently on room air -lantus 50 units with aggressive sliding scale -consistent carbohydrate diet -White blood Count improving, Continue IV antibiotics - iv atb with vancomycin and zosyn Cardiovascular: #acute metabolic/ hypertensive encephalopathy likely multifactorial due DKA to hypertensive emergency #hypertriglyceridemia #sinus tachycardia ,resolved -blood pressure normalized -lifestyle modification and dietary habits counseling Respiratory #Acute hypoxemic respiratory failure due to severe diabetic ketoacidosis likely due to sepsis likely pneumonia UTI #Hypocapnia due to respiratory alkalosis response due to metabolic alkalosis due to DKA -currently on room air -same as above -IV antibiotics Gastrointestinal: /kidney #acute kidney injury likely hemodynamically mediated due to the VMN, creatinine improving #nonobstructive right sided kidney stone, 5 mm #Hypokalemia -IV fluids -follow-up on kidney stone in the outpatient -K+ PO replacement Endocrinology #Uncontrolled type 2 diabetes, hemoglobin A1c 12.3 #Severe diabetic ketoacidosis #Metabolic acidosis due to DKA with respiratory alkalosis compensation, increased anion gap, current AGAP 16 #Hypovolemic hyponatremia due to severe hyperglycemia #Ketonuria #Metabolic syndrome #Type 2 obesity -same as above -Lantus 50 -Insulin sliding scale aggressive -Lifestyle modification counseling and dietary habits counseling Infectious disease: #history of recent urethral whitish discharge likely due to fungal UTI #leukocytosis due to SIRS, possible sepsis due to UTI -empiric IV antibiotics -IV fluids -blood cultures and urine cultures pending Musculoskeletal: #Right Hip pain #?Ganglion cyst rupture,rule out Nec fascitis #Large multiloculated area of fluid in the subcutaneous tissues in the proximal posterior lateral right thigh extending deep into the gluteal musculature and adductor musculature of the thigh. - surgical consultation -IV zosyn and vanco - ultrasound case discussed with Critical care, time spent not including procedures:63 minutes Code status: DNR/DNI Plan discussed with: Patient, Other (SISTER) My Orders My Orders Orders - AMADOU TINOCO RESIDENT Procedure Category Date Status Time Insulin Lantus PHA 12/30/24 In Process (Glargine) (Lantus) 14:45 Right Lower Extremity US 12/30/24 Resulted Ultrasou 17:57 Complete Blood Count LAB 12/31/24 Verified 04:00 Docusate Sodium PHA 12/30/24 In Process Capsule (Colace 22:00 Dietary Evaluation Review Comments: 1) Refer to outpatient RD/[facility] for diabetes education and weight management 2) Continue to monitor labs and PO intake Expected Outcomes/Goals: 1) appetite and labs to improve 2) f/u in 3-5 days Date of Service: Dec 30, 2024 Billing Provider: DAMEON EPSTEIN MD Common Visit Codes: [id number] CARE 30-74 MIN AMADOU TINOCO Dec 30, 2024 23:52 DAMEON EPSTEIN MD Dec 31, 2024 15:07
[2024-12-31] VITALS (8 sets, daily range): BP systolic 131–141; BP diastolic 72–86; PULSE 75–107; RESP 13–20; TEMP 98–98.8; O2SAT 94–98
[2024-12-31 07:35] LABS: Hematocrit 41.6 % (41.0-53.0); Hemoglobin 13.9 g/dL (13.5-17.5); Mean Corpuscular Hgb Conc. 33.4 g/dL (32.0-36.0); Mean Corpuscular Volume 86.7 fL (80.0-100.0); Platelet Count (auto) 401 10^3/uL (140-450); Red Blood Cells 4.79 10^6/uL (4.5-5.90); Red Cell Distribution Width 12.8 % (11.8-14.3); White Blood Cell 12.4 10^3/uL (4.4-10.8)
[2024-12-31 07:43] LABS: Calcium 8.7 mg/dL (8.7-10.4); Potassium 3.5 mmol/L (3.5-5.1)
[2024-12-31 07:44] LABS: Anion Gap 10 (5-15); Carbon Dioxide 26 mmol/L (20-31)
[2024-12-31 07:49] LABS: Basophils % (manual) 0 (0.0-2.0); Blast Cells 0; Metamyelocytes % 0; Myelocytes % 0; Promyelocytes % 0; Reactive Lymphocytes 0
[2024-12-31 07:50] LABS: BUN/Creatinine Ratio 15.3 (10.0-20.0); Blood Urea Nitrogen 13 mg/dL (9-23)
[2024-12-31 07:53] LABS: Chloride 97 mmol/L (98-107); Glucose 236 mg/dL (74-106); Sodium 133 mmol/L (136-145)
[2024-12-31 08:31] LABS: Band Neutrophils % (manual) 1; Eosinophils % (manual) 1 (0-7); Lymphocytes % (manual) 16 (10.0-50.0); Monocytes % (manual) 11 (0-12); Platelet Estimate Adequate
[2024-12-31] MEDS: LOSARTAN POTASSIUM 25 MG TAB PO SCH (09:57)
[2024-12-31] MEDS: INSULIN LANTUS (GLARGINE) 1 /0.01ml (100units/ml) SC SCH (10:08)
[2024-12-31] MEDS: FLUCONAZOLE 200MG/100ML 100 ML IV SCH (16:15)
--- NOTE | 2024-12-31 18:32 | DVHINCON2 ---
Consult Note Consult Consult Note Consult note Patient with 4-5 day history of sudden accumulation of fluid left hip lateral aspect subcutaneous tissue. Patient denies any history of trauma prior similar episode or any personal or family history of cancer. Notably, the patient has a recent diagnosis of diabetes type 2 mellitus. No systemic system symptoms such as fever chills weight loss or night sweats reported by patient today. Patient denies any pain on the right hip. Objective Inspection: Approximately 5 cm x 5 cm endurant left hip mass noted with no erythema , ecchymosis or other skin changes Palpation: Minimal tenderness to palpation no fluctuance, erythema, warmth to touch MRI finding: Demonstrate multiloculated fluid accumulation between the subcutaneous tissue without solid enhancing component spreading to gluteus and abductor muscle Neurological and vascular exam intact Assessment: Subcutaneous fluid collection of unknown etiology left hip without history of trauma or malignancy. Newly diagnosed DM 2 which may predispose to altered immune response or atypical infection No clear infectious inflammatory or neoplastic feature on imaging Plan: Referral to intervention radiology for biopsy and drainage/drain to determine the etiology of the fluid collection(infection/inflammatory/neoplastic process) Lab recommended CBC, CRP, ESR, monitoring of A1c by his medicine team on the floor Discussed with patient need for biopsy and drainage Follow up plan: Plan for irrigation and debridement of right thigh and hip mass -- likely abscess Coding EM code 52047 for consultation moderate complexity CPT code: 52157 for MRI review and interpretation Visit code: 25 Plan discussed with: Patient, Other (bedside nurse) PAULA PALOMARES Dec 31, 2024 18:32 NAV LIMA MD Jan 02, 2025 09:31
--- NOTE | 2024-12-31 19:02 | DVHPNRES ---
Progress Note Date Seen: Dec 31, 2024 Resident Creating Document: AMADOU TINOCO RESIDENT Has the PT tested + for MRSA If YES, has PT been informed?: Yes Medical Necessity Reason Pt with a Central, PICC or Fol: No Subjective Review of Systems Patient was seen and examined at bedside, The patient describes having a right sided hip pain for the last 3 weeks that exacerbates on activity. Over the last 3 days he started noticing a red, warm and inflamed mass in the right hip after he felt a "pop ",the pain decreased compared from 2 days ago from 10/10 on activity to 2/10 to 3/10 now. Patient was seen by vascular team they decided no need for surgical intervention and continue with broad-spectrum antibiotics, strict glucose control, ultrasound was ordered, it showed small volume fluid overlying the right hip and diffuse subcutaneous soft-tissue edema and swelling. patient will continue con vanco and zosyn IV. Ortho has evaluated the patient , referal to intervention radiology for biopsy and drainage/drain to determine the etiology of the fluid collection(infection/inflammatory/neoplastic process) whitish discharge was noted coming out from the penis, fluconazole was started. Patient reports: No new complaints Objective vital signs Vital Sign Date Time Temp Pulse Resp B/P (MAP) Pulse Ox O2 Delivery O2 Flow Rate FiO2 12/31/24 16:46 98.1 95 17 133/72 (92) 95 98.1 12/31/24 08:10 Room Air* 0 21 Total Intake and Output 12/30/24 12/30/24 12/31/24 15:00 23:00 07:00 Intake Total 720 ml 1810 ml 450 ml Output Total 600 ml 500 ml Balance 720 ml 1210 ml -50 ml medications Current Medications Medications Dose Ordered Sig/Loly Route Start Time Stop Time Status Last Admin Dose Admin Acetaminophen 650 mg Q6HP PRN PO 12/25/24 01:30 12/30/24 10:23 650 MG Dextrose 50 ml PRN PRN IV 12/25/24 05:00 Vancomycin HCl 0 ml @ 0 mls/hr UD IV 12/25/24 06:45 Diagnostic Test (Pha) 1 strip ACHS 12/26/24 17:00 12/31/24 17:00 1 STRIP Insulin Human Regular HS SC 12/26/24 22:00 12/30/24 22:41 8 UNITS Pantoprazole Sodium 40 mg DAILY@0600 PO 12/27/24 06:00 12/31/24 06:02 40 MG Insulin Human Regular AC SC 12/27/24 11:30 12/31/24 17:53 8 UNITS Vancomycin HCl 250 ml @ 250 mls/hr Q10H IV 12/30/24 15:00 12/31/24 12:08 250 MLS/HR Losartan Potassium 25 mg DAILY PO 12/31/24 10:00 12/31/24 09:57 25 MG Morphine Sulfate 2 mg Q4HP PRN IV 12/30/24 14:15 Piperacillin Sod/ Tazobactam Sod 100 ml @ 25 mls/hr Q8H IV 12/30/24 23:00 12/31/24 17:59 25 MLS/HR Docusate Sodium 100 mg BID PO 12/30/24 22:00 12/31/24 09:58 100 MG Insulin Glargine 50 units DAILY@1000 SC 12/31/24 10:00 12/31/24 10:08 50 UNITS Fluconazole 100 ml @ 100 mls/hr DAILY IV 12/31/24 10:00 12/31/24 16:15 100 MLS/HR Examination: GENERAL:Normal, HEENT:Normal, NECK:Normal, LUNGS:Normal, CVS:Normal, ABDOMEN:Normal, MSK:Abnormal, SKIN:Abnormal, NEURO:Normal, :Normal laboratory and microbiology Laboratory Tests 12/31/24 06:25 Test 12/31/24 06:25 Range/Units Serum Glucose 236 H 74-106 mg/dL Microbiology Date/Time Source Procedure Growth Status 12/27/24 15:30 Blood Blood Culture - Preliminary NO GROWTH AFTER 72 HOURS OF INCUBATION. Resulted 12/25/24 08:30 Urine - [place] Urine Culture - Final Complete 12/25/24 07:45 Nose MRSA Screen - Final Complete Problem List/Assessment/Plan Problem List/Assessment/Plan Neurology #Acute metabolic/hypertensive encephalopathy due to severe diabetic ketoacidosis due to sepsis likely pneumonia/UTI, resolved -patient is currently on room air -lantus 50 units with aggressive sliding scale -consistent carbohydrate diet -White blood Count improving, Continue IV antibiotics - iv atb with vancomycin and zosyn Cardiovascular: #acute metabolic/ hypertensive encephalopathy likely multifactorial due DKA to hypertensive emergency #hypertriglyceridemia #sinus tachycardia ,resolved -blood pressure normalized -lifestyle modification and dietary habits counseling Respiratory #Acute hypoxemic respiratory failure due to severe diabetic ketoacidosis likely due to sepsis likely pneumonia UTI #Hypocapnia due to respiratory alkalosis response due to metabolic alkalosis due to DKA -currently on room air -same as above -IV antibiotics Gastrointestinal: /kidney #acute kidney injury likely hemodynamically mediated due to the VMN, creatinine improving #nonobstructive right sided kidney stone, 5 mm #Hypokalemia #fungal UTI -IV fluids -IV fluconazole -follow-up on kidney stone in the outpatient -K+ PO replacement Endocrinology #Uncontrolled type 2 diabetes, hemoglobin A1c 12.3 #Severe diabetic ketoacidosis #Metabolic acidosis due to DKA with respiratory alkalosis compensation, increased anion gap, current AGAP 16 #Hypovolemic hyponatremia due to severe hyperglycemia #Ketonuria #Metabolic syndrome #Type 2 obesity -same as above -Lantus 50 -Insulin sliding scale aggressive -Lifestyle modification counseling and dietary habits counseling Infectious disease: #history of recent urethral whitish discharge likely due to fungal UTI #leukocytosis due to SIRS, possible sepsis due to UTI -empiric IV antibiotics -IV fluids -blood cultures and urine cultures pending Musculoskeletal: #Right Hip pain #?Ganglion cyst rupture,rule out Nec fascitis #Large multiloculated area of fluid in the subcutaneous tissues in the proximal posterior lateral right thigh #Rule out malignancy - Biopsy - extending deep into the gluteal musculature and adductor musculature of the thigh. - Orthopedic consult - IV zosyn and vanco case discussed with Critical care, time spent not including procedures:41 minutes Code status: DNR/DNI Plan discussed with: Patient, Other (sister) My Orders My Orders Orders - AMADOU TINOCO RESIDENT Procedure Category Date Status Time Docusate Sodium PHA 12/30/24 In Process Capsule (Colace 22:00 Insulin Lantus PHA 12/31/24 In Process (Glargine) (Lantus) 10:00 Fluconazole PHA 12/31/24 In Process 200mg/100ml (Diflucan 10:00 Losartan Tablet PHA 12/31/24 Transmitted (Cozaar Tablet) 18:45 Dietary Evaluation Review Comments: 1) Refer to outpatient RD/[facility] for diabetes education and weight management 2) Continue to monitor labs and PO intake Expected Outcomes/Goals: 1) appetite and labs to improve 2) f/u in 3-5 days Date of Service: Dec 31, 2024 Billing Provider: DAMEON EPSTEIN MD Common Visit Codes: [id number] CARE 30-74 MIN AMADOU TINOCO RESIDENT Dec 31, 2024 19:02 DAMEON EPSTEIN MD Jan 01, 2025 11:58
[2024-12-31] MEDS: LOSARTAN POTASSIUM 25 MG TAB PO ONE (20:30)
[2025-01-01] VITALS (8 sets, daily range): BP systolic 116–130; BP diastolic 65–83; PULSE 12–113; RESP 14–19; TEMP 97.2–98.2; O2SAT 93–98
[2025-01-01 07:07] LABS: Basophils # (auto) 0.1 10 ^3/uL (0-0.2); Eosinophils # (auto) 0.1 10 ^3/uL (0-0.8); Mean Corpuscular Hemoglobin 29.3 pg (28.0-32.0); Monocytes # (auto) 1.9 10 ^3/uL (0-1.3)
[2025-01-01 07:09] LABS: Basophils % (auto) 0.4 % (0.0-2.0); Eosinophils % (auto) 0.8 % (0.0-7.0); Hematocrit 41.2 % (41.0-53.0); Hemoglobin 13.9 g/dL (13.5-17.5); Lymphocytes # (auto) 1.4 10 ^3/uL (0.4-5.4); Lymphocytes % (auto) 10.3 % (10.0-50.0); Mean Corpuscular Hgb Conc. 33.7 g/dL (32.0-36.0); Monocytes % (auto) 13.7 % (0.0-12.0); Neutrophils # (auto) 10.1 10 ^3/uL (1.6-8.6); Neutrophils % (auto) 74.8 % (37.0-80.0); Platelet Count (auto) 451 10^3/uL (140-450); Red Blood Cells 4.74 10^6/uL (4.5-5.90); Red Cell Distribution Width 12.8 % (11.8-14.3); White Blood Cell 13.6 10^3/uL (4.4-10.8)
[2025-01-01 07:11] LABS: Chloride 99 mmol/L (98-107); Potassium 3.8 mmol/L (3.5-5.1)
[2025-01-01 07:12] LABS: Anion Gap 9 (5-15); Carbon Dioxide 25 mmol/L (20-31)
[2025-01-01 07:17] LABS: BUN/Creatinine Ratio 13.2 (10.0-20.0); Blood Urea Nitrogen 12 mg/dL (9-23)
[2025-01-01 07:18] LABS: Glucose 175 mg/dL (74-106); Sodium 133 mmol/L (136-145)
--- NOTE | 2025-01-01 10:23 | DVH ---
Exam: US RIGHT LOWER EXTREMITY ULTRASOU Clinical History: RT HIP EFFUSION Comparison: US RIGHT LOWER EXTREMITY ULTRASOU on DOS: 12/30/24, US RIGHT LOWER EXTREMITY ULTRASOU on D OS: 12/25/24 Technique: Targeted sonographic evaluation of the soft tissues of the right hip was obtained utilizing grayscal e and color Doppler imaging. Findings/Impression: Soft-tissue edema and small fluid collection overlying the right hip.
[2025-01-01] MEDS: LOSARTAN POTASSIUM 25 MG TAB PO SCH (10:28)
[2025-01-01 11:04] LABS: INR 1.11 (0.9-1.15); Partial Thromboplastin Time 27.3 SEC (24.5-34.5); Prothrombin Time 11.6 sec (9.3-11.8)
--- NOTE | 2025-01-01 12:08 | DVH ---
DATE: JANUARY 01, 2025. TITLE: ULTRASOUND-GUIDED SOFT TISSUE ASPIRATION AROUND THE RIGHT HIP JOINT. HISTORY: RIGHT HIP ABSCESS. CONSENT: INFORMED WRITTEN CONSENT WAS OBTAINED FROM THE PATIENT. ANESTHESIA: 1% LIDOCAINE LOCAL. TECHNIQUE: WITH THE PATIENT SUPINE SKIN AROUND THE RIGHT HIP JOINT WAS PREPPED AND DRAPED IN THE USUA L STERILE FASHION. UNDER ULTRASOUND GUIDANCE THE INFLAMED SOFT TISSUE WAS LOCALIZED. SPOT ULTRASOUN D IMAGES WERE OBTAINED AND STORED. 1% LIDOCAINE WAS APPLIED A SKIN AND SOFT TISSUE. A 5 [place] YUEH NEEDLE CATHETER WAS ADVANCED. THE NEEDLE WAS REMOVED. MULTI SIDE-HOLE CATHETER WAS USED TO ASPIRATE 2 CC OF PURULENT COLLECTION. SAMPLE WAS SENT FOR GRAM STAIN AND CULTURE. TEMPORARY CATHETER WAS REMOV ED. THE PATIENT TOLERATED PROCEDURE WELL WITHOUT ANY IMMEDIATE COMPLICATIONS. IMPRESSION: 1. SUCCESSFUL ULTRASOUND-GUIDED ASPIRATION OF SOFT TISSUE ABSCESS AROUND THE RIGHT HIP JOINT. FLUID S AMPLE SENT FOR MICROBIOLOGY ANALYSIS.
[2025-01-01] MEDS: PIPERACILLIN-TAZOB 3.375GM 100 ML IV SCH (13:21)
[2025-01-01] MEDS: MORPHINE SULFATE INJ 2 MG/ml SYRG IV PRN (13:21)
--- NOTE | 2025-01-01 17:17 | DVHPNRES ---
Progress Note Date Seen: Jan 01, 2025 Resident Creating Document: AMADOU TINOCO RESIDENT Has the PT tested + for MRSA If YES, has PT been informed?: Yes Medical Necessity Reason Pt with a Central, PICC or Fol: No Subjective Review of Systems Patient was seen and examined at bedside, The patient describes having a right sided hip pain for the last 3 weeks that exacerbates on activity. Over the last 3 days he started noticing a red, warm and inflamed mass in the right hip after he felt a "pop ",the pain decreased compared from 2 days ago from 10/10 on activity to 2/10 to 3/10 now, today it becomes bigger in size but no as red as before.. Patient was seen by vascular team they decided no need for surgical intervention and continue with broad-spectrum antibiotics, strict glucose control now insulin lantus 30 units BID, ultrasound was ordered, it showed small volume fluid overlying the right hip and diffuse subcutaneous soft-tissue edema and swelling. patient will continue con vanco and zosyn IV. Ortho has evaluated the patient , referal to intervention radiology for biopsy and drainage/drain to determine the etiology of the fluid collection(infection/inflammatory/neoplastic process) whitish discharge was noted coming out from the penis, fluconazole was started. Procedure completed,total volume removed 0.5 ml , sample collected and taken to lab. Patient reports: No new complaints Objective vital signs Vital Sign Date Time Temp Pulse Resp B/P (MAP) Pulse Ox O2 Delivery O2 Flow Rate FiO2 01/01/25 13:51 98 16 138/77 01/01/25 13:00 97.2 96 97.2 01/01/25 08:00 Room Air* 0 21 Total Intake and Output 12/31/24 12/31/24 01/01/25 14:59 22:59 06:59 Intake Total 350 ml 1092 ml 300 ml Output Total 0 ml Balance 350 ml 1092 ml 300 ml medications Current Medications Medications Dose Ordered Sig/Loly Route Start Time Stop Time Status Last Admin Dose Admin Acetaminophen 650 mg Q6HP PRN PO 12/25/24 01:30 12/30/24 10:23 650 MG Dextrose 50 ml PRN PRN IV 12/25/24 05:00 Vancomycin HCl 0 ml @ 0 mls/hr UD IV 12/25/24 06:45 Diagnostic Test (Pha) 1 strip ACHS 12/26/24 17:00 01/01/25 11:30 1 STRIP Insulin Human Regular HS SC 12/26/24 22:00 12/31/24 21:09 6 UNITS Pantoprazole Sodium 40 mg DAILY@0600 PO 12/27/24 06:00 01/01/25 06:18 40 MG Insulin Human Regular AC SC 12/27/24 11:30 01/01/25 13:44 16 UNITS Vancomycin HCl 250 ml @ 250 mls/hr Q10H IV 12/30/24 15:00 01/01/25 06:26 250 MLS/HR Morphine Sulfate 2 mg Q4HP PRN IV 12/30/24 14:15 01/01/25 13:21 2 MG Docusate Sodium 100 mg BID PO 12/30/24 22:00 01/01/25 10:28 100 MG Fluconazole 100 ml @ 100 mls/hr DAILY IV 12/31/24 10:00 01/01/25 10:00 100 MLS/HR Losartan Potassium 50 mg DAILY PO 01/01/25 10:00 01/01/25 10:28 50 MG Piperacillin Sod/ Tazobactam Sod 100 ml @ 25 mls/hr Q8H IV 01/01/25 10:00 01/01/25 13:21 25 MLS/HR Insulin Glargine 30 units BID@0700,2200 SC 01/01/25 22:00 Examination General Appearance: Alert, No acute distress Lungs: Clear to auscultation, Normal air movement Cardiovascular: Regular rate, Normal S1, Normal S2, No murmurs, Gallops, Rubs Abdomen: Normal bowel sounds, Soft, No tenderness Musculoskeletal: Right lateral hip swelling with some erythema mildly/moderate tender on palpation, no evidence of crepitus. No evidence of wounds. Large inflammatory soft tissue process involving the subcutaneous tissues Neuro: Cranial nerves 3-12 NL laboratory and microbiology Laboratory Tests 01/01/25 05:32 Test 01/01/25 05:32 Range/Units Serum Glucose 175 H 74-106 mg/dL Microbiology Date/Time Source Procedure Growth Status 12/27/24 15:30 Blood Blood Culture - Final NO GROWTH AFTER 5 DAYS OF INCUBATION. Complete 12/25/24 08:30 Urine - [place] Urine Culture - Final Complete 12/25/24 07:45 Nose MRSA Screen - Final Complete Problem List/Assessment/Plan Problem List/Assessment/Plan Neurology #Acute metabolic/hypertensive encephalopathy due to severe diabetic ketoacidosis due to sepsis likely pneumonia/UTI, resolved -patient is currently on room air -lantus 50 units with aggressive sliding scale -consistent carbohydrate diet -White blood Count improving, Continue IV antibiotics - iv atb with vancomycin and zosyn Cardiovascular: #acute metabolic/ hypertensive encephalopathy likely multifactorial due DKA to hypertensive emergency #hypertriglyceridemia #sinus tachycardia ,resolved -blood pressure normalized -lifestyle modification and dietary habits counseling Respiratory #Acute hypoxemic respiratory failure due to severe diabetic ketoacidosis likely due to sepsis likely pneumonia UTI #Hypocapnia due to respiratory alkalosis response due to metabolic alkalosis due to DKA -currently on room air -same as above -IV antibiotics Gastrointestinal: /kidney #acute kidney injury likely hemodynamically mediated due to the VMN, creatinine improving #nonobstructive right sided kidney stone, 5 mm #Hypokalemia #fungal UTI -IV fluids -IV fluconazole -follow-up on kidney stone in the outpatient -K+ PO replacement Endocrinology #Uncontrolled type 2 diabetes, hemoglobin A1c 12.3 #Severe diabetic ketoacidosis #Metabolic acidosis due to DKA with respiratory alkalosis compensation, increased anion gap, current AGAP 16 #Hypovolemic hyponatremia due to severe hyperglycemia #Ketonuria #Metabolic syndrome #Type 2 obesity -same as above -Lantus 50 -Insulin sliding scale aggressive -Lifestyle modification counseling and dietary habits counseling Infectious disease: #history of recent urethral whitish discharge likely due to fungal UTI #leukocytosis due to SIRS, possible sepsis due to UTI -empiric IV antibiotics -IV fluids -blood cultures and urine cultures pending Musculoskeletal: #Right Hip pain due to ?Abscess, ?ganglion cyst rupture ?malignancy #Large multiloculated area of fluid in the subcutaneous tissues in the proximal posterior lateral right thigh - Biopsy - Large inflammatory soft tissue process involving the subcutaneous tissues - Orthopedic consult - IV zosyn and vanco case discussed with Code status: DNR/DNI, time spent in advance care planning was 21 mins Plan discussed with: Patient, Other (sister) My Orders My Orders Orders - AMADOU TINOCO RESIDENT Procedure Category Date Status Time Losartan Tablet PHA 01/01/25 In Process (Cozaar Tablet) 10:00 Dietary Evaluation Review Comments: 1) Refer to outpatient RD/[facility] for diabetes education and weight management 2) Continue to monitor labs and PO intake Expected Outcomes/Goals: 1) appetite and labs to improve 2) f/u in 3-5 days Date of Service: Jan 01, 2025 Billing Provider: DAMEON EPSTEIN MD Common Visit Codes: [id number] INP/OBS CARE(HIGH) Secondary Visit Codes: [id number] CARE PLAN 30 MINUTES AMADOU TINOCO RESIDENT Jan 01, 2025 17:17 DAMEON EPSTEIN MD Jan 04, 2025 15:28
[2025-01-01] MEDS: INSULIN LANTUS (GLARGINE) 1 /0.01ml (100units/ml) SC SCH (22:26)
[2025-01-02] VITALS (9 sets, daily range): BP systolic 114–133; BP diastolic 67–85; PULSE 93–107; RESP 16–19; TEMP 97.7–98.5; O2SAT 90–100
[2025-01-02 07:06] LABS: Hematocrit 43.4 % (41.0-53.0); Hemoglobin 14.3 g/dL (13.5-17.5); Mean Corpuscular Volume 87.9 fL (80.0-100.0); Platelet Count (auto) 444 10^3/uL (140-450); Red Blood Cells 4.94 10^6/uL (4.5-5.90); Red Cell Distribution Width 12.9 % (11.8-14.3); White Blood Cell 17.3 10^3/uL (4.4-10.8)
[2025-01-02 07:17] LABS: Alanine Aminotransferase 20 U/L (7-40); Albumin 3.7 g/dL (3.2-4.8); Anion Gap 12 (5-15); Aspartate Aminotransferase 19 U/L (13-40); BUN/Creatinine Ratio 12.7 (10.0-20.0); Basophils % (manual) 0 (0.0-2.0); Bilirubin, Total 0.5 mg/dL (0.2-1.0); Blast Cells 0; Blood Urea Nitrogen 14 mg/dL (9-23); Carbon Dioxide 22 mmol/L (20-31); Metamyelocytes % 0; Myelocytes % 0; Promyelocytes % 0; Reactive Lymphocytes 0; Total Protein 7.1 g/dL (5.7-8.2)
[2025-01-02 07:18] LABS: Alkaline Phosphatase 293 U/L (46-116); Chloride 96 mmol/L (98-107); Glucose 304 mg/dL (74-106); Sodium 130 mmol/L (136-145)
[2025-01-02] MEDS: SUCCINYLCHOLINE CHLORIDE 20 MG/ML 10ML VIAL IV ONE (07:47)
[2025-01-02] MEDS: ROCURONIUM 10MG/ML 10ML VIAL IV ONE (07:47)
[2025-01-02] MEDS ORDERED: PROPOFOL 10 MG/ML 20 ML IV ONE (07:52)
[2025-01-02] MEDS ORDERED: SODIUM CHLORIDE LOCK 10 ML ONE (07:52)
[2025-01-02] MEDS ORDERED: KETAMINE 50mg/ML 1ml syringe ONE (07:52)
[2025-01-02] MEDS ORDERED: MIDAZOLAM HCL 2MG/2ML 2ml VIAL (1mg/ml) ONE (07:52)
[2025-01-02] MEDS ORDERED: LIDOCAINE HCL 2% TOP JELLY 5ML TOP ONE (07:52)
[2025-01-02] MEDS ORDERED: fentaNYL CITRATE 100 MCG/2 ML VL ONE (07:52)
[2025-01-02] MEDS ORDERED: ONDANSETRON HCL 4 MG/2 ML VIAL ONE (07:52)
[2025-01-02] MEDS ORDERED: MEPERIDINE HCL (50 MG/ML) 1 ML VIAL ONE (07:52)
[2025-01-02] MEDS ORDERED: LIDOCAINE 1% INJ PF 5ML AMP ONE (07:52)
[2025-01-02] MEDS ORDERED: MORPHINE SULFATE 4 MG/ML SYR/VIAL IV PRN (08:15)
[2025-01-02] MEDS ORDERED: HYDROmorphone HCL 2 MG/ML VL/or syr IV PRN ×2 (08:15)
[2025-01-02] MEDS: KETOROLAC TROMETH 30 MG/ML 1ML VIAL IV ONE (08:15)
[2025-01-02] MEDS ORDERED: MORPHINE SULFATE INJ 2 MG/ml SYRG IV PRN (08:15)
[2025-01-02] MEDS: ACCU-CHEK COMFORT CURVE STRIP VI ONE (08:15)
[2025-01-02] MEDS: METOCLOPRAMIDE HCL 5MG/ml INJ 2ml VIAL IV ONE (08:15)
[2025-01-02 08:16] LABS: Band Neutrophils % (manual) 4; Eosinophils % (manual) 1 (0-7); Lymphocytes % (manual) 17 (10.0-50.0); Monocytes % (manual) 4 (0-12); Platelet Estimate Adequate
[2025-01-02] MEDS: BUPIVACAINE 0.25% INJ 50ML VIAL ONE (09:55)
[2025-01-02] MEDS: VANCOMYCIN HCL 1000 MG VL ONE (09:57)
--- NOTE | 2025-01-02 10:08 | POSTOP ---
Post-Operative Note Post-Operative Note Preop Diagnosis Right hip and thigh abscess Postop Diagnosis: Right hip and thigh abscess Operation performed Irrigation and debridement of right hip and thigh Anesthesia: General Anesthesiologist: Souleymane BUCHANAN Surgeon Nic Hatfield MD Acid Condenser Prasanna STONER OUT Complications & Mgmt culture x 3 Date 01/02/25 Time 10:06 NIC HATFIELD MD Jan 02, 2025 10:08
--- NOTE | 2025-01-02 10:25 | DVHOP2 ---
Operative Report - 2 Report Details Date: 01/02/25 Preop Diagnosis: Right hip and thigh abscess Postop Diagnosis: Right hip and thigh abscess Surgeon: Nic Hatfield MD Form Tamper: Prasanna BURGOS Anesthesiologist: Souleymane BUCHANAN Anesthesia: General Consent: The patient was informed of the risks and benefits of the procedure. These include but are not limited to complications of anesthesia, postoperative infection, incomplete relief of symptoms, recurrence of symptoms, damage to blood vessels, nerves and tendons, deep venous thrombosis, pulmonary embolism and possible need for repeat surgery in the future. Estimated Blood Loss: 20 cc Findings: large thigh abscess Name of Procedure Performed Irrigation and debridement of right hip and thigh, placement of wound vac Procedure Details Procedure Details: In the preoperative waiting area I had a long discussion with the patient and his family where I once again reviewed the risks benefits and alternatives of surgery including the expected recovery, post operative protocol, the need for anticoagulation and the patients specific risk profile. I discussed that complications can arise include but are not limited to: infection, bleeding, damage to nerves and vessels, amputation, need for revision surgery, blood clots, medical complications, need for transfusions. Etc All this was discussed and consent has been obtained after a long list of questions was answered. Appropriate consent was obtained and verified and the patient was transferred to the operating room theatre. Appropriate anesthetic, antibioitic prophylaxis and IV access and fluid monitoring devices were given and placed. The patient was placed in the lateral decubitus position with all bony prominences well padded. An antibiotic and extremity time out was performed and we then made an incision, in line with the lateral aspect of the femur extending proximal to the tip of the greater trochanter. We carried our dissection down through subcutaneous tissue to the underlying fascia achieving hemostasis where necessary. Patient noted to have a large abscess with about 200 cc of purulent material evacuated above iliotibial fascia from anterior to posterior compartment. Cultures x 3 taken. Patient wound irrigated, debrided of fat/muscle with currette and ronjeur. Tissue then pulse lavaged with normal saline, betadine soaked into wound, flushed again wtih pulse lavage. We then used X bacterial solution to sit for 3 minutes followed by pulse lavage again. Wound looked good without signs of purulence. I then placed 2 gm of vanco poweder into wound. Wound then closed with stratafix, 0-Monocryl, 2-0 Monocryl and patti. Prevena wound vac placed over wound. We dressed the wound and drain site in sterile dressings . We verified all lower extremity compartments were soft and compressible and that we had intact distal pulses and checked our leg length amish. patient was transferred to the recovery room in stable condition. Specimen: culture x 3 Condition Fair Disposition Still a Patient NIC HATFIELD MD Jan 02, 2025 10:25
--- NOTE | 2025-01-02 15:05 | DVHPNRES ---
Progress Note Date Seen: Jan 02, 2025 Resident Creating Document: AMADOU TINOCO RESIDENT Has the PT tested + for MRSA If YES, has PT been informed?: Yes Medical Necessity Reason Pt with a Central, PICC or Fol: No Subjective Review of Systems Patient was seen and examined at bedside, US guidance needle aspiration from the inflamed soft tissue was obtained yesterday, after which the patient was transfered to the OR for abscess aspiraton. Patient was transfered to the OR this morning for Irrigation and debridement of right hip and thigh abscess ,patient was noted to have a large abscess with about 200cc of purulent material evacuated . cultures x3 were taken. wound vac was placed on site. WBC count today was 17.3 from 13.6 yesterday. Otherwise vital signs remained stable. Patient report not having pain after the procedure, wound vac on place without inflammatory changes, he denies any other complaint at this time. Body fluid culture , prel.results growing staph aureus, stiill ruling out pathogens. Patient reports: No new complaints Review of Systems: HEENT:Normal, CVS:Normal, RESPIRATORY:Normal, GI:Normal, :Normal, MSK:Abnormal, NEURO:Normal Objective vital signs Vital Sign Date Time Temp Pulse Resp B/P (MAP) Pulse Ox O2 Delivery O2 Flow Rate FiO2 01/02/25 13:00 97.9 99 18 122/78 (93) 90 97.9 01/02/25 10:05 Mask 9.0 100 Total Intake and Output 01/01/25 01/01/25 01/02/25 15:00 23:00 07:00 Intake Total 350 ml 600 ml Balance 350 ml 600 ml medications Current Medications Medications Dose Ordered Sig/Loly Route Start Time Stop Time Status Last Admin Dose Admin Acetaminophen 650 mg Q6HP PRN PO 12/25/24 01:30 12/30/24 10:23 650 MG Dextrose 50 ml PRN PRN IV 12/25/24 05:00 Vancomycin HCl 0 ml @ 0 mls/hr UD IV 12/25/24 06:45 Diagnostic Test (Pha) 1 strip ACHS 12/26/24 17:00 01/02/25 11:58 1 STRIP Insulin Human Regular HS SC 12/26/24 22:00 01/01/25 22:06 6 UNITS Pantoprazole Sodium 40 mg DAILY@0600 PO 12/27/24 06:00 01/01/25 06:18 40 MG Insulin Human Regular AC SC 12/27/24 11:30 01/02/25 11:58 4 UNITS Vancomycin HCl 250 ml @ 250 mls/hr Q10H IV 12/30/24 15:00 01/02/25 03:04 250 MLS/HR Morphine Sulfate 2 mg Q4HP PRN IV 12/30/24 14:15 01/01/25 13:21 2 MG Docusate Sodium 100 mg BID PO 12/30/24 22:00 01/02/25 11:38 100 MG Fluconazole 100 ml @ 100 mls/hr DAILY IV 12/31/24 10:00 01/02/25 11:37 100 MLS/HR Losartan Potassium 50 mg DAILY PO 01/01/25 10:00 01/02/25 11:38 50 MG Piperacillin Sod/ Tazobactam Sod 100 ml @ 25 mls/hr Q8H IV 01/01/25 10:00 01/02/25 10:00 25 MLS/HR Insulin Glargine 30 units BID@0700,2200 SC 01/01/25 22:00 01/02/25 06:38 30 UNITS Examination: GENERAL:Normal, HEENT:Normal, NECK:Normal, LUNGS:Normal, CVS:Normal, ABDOMEN:Normal, MSK:Abnormal, SKIN:Abnormal, NEURO:Normal, :Normal laboratory and microbiology Laboratory Tests 01/02/25 05:58 Test 01/02/25 05:58 Range/Units Serum Glucose 304 #H 74-106 mg/dL Microbiology Date/Time Source Procedure Growth Status 01/02/25 09:47 Hip Right Gram Stain - Final Resulted 01/02/25 09:47 Hip Right Anaerobic Culture Pending Resulted 01/02/25 09:47 Hip Right Aerobic Culture Pending Resulted 01/01/25 11:00 Aspirate Gram Stain - Final Resulted 01/01/25 11:00 Aspirate Body Fluid Culture - Preliminary Resulted 12/27/24 15:30 Blood Blood Culture - Final NO GROWTH AFTER 5 DAYS OF INCUBATION. Complete 12/25/24 08:30 Urine - [place] Urine Culture - Final Complete Problem List/Assessment/Plan Problem List/Assessment/Plan Neurology #Acute metabolic/hypertensive encephalopathy due to severe diabetic ketoacidosis due to sepsis likely pneumonia/UTI, resolved -patient is currently on room air -lantus 30 sc bid units with aggressive sliding scale -consistent carbohydrate diet - Continue IV antibiotics Musculoskeletal: # Sepsis due to large right hip abscess s/p I &D #Large multiloculated area of fluid in the subcutaneous tissues in the proximal posterior lateral right thigh #Rule out malignancy - I&D ,200 CC purulent fluid removed - Continue IV atb - wound vac - right hip , body fluid cultures, preliminary results growing staph aureus. Cardiovascular: #acute metabolic/ hypertensive encephalopathy likely multifactorial due DKA to hypertensive emergency #hypertriglyceridemia #sinus tachycardia ,resolved -blood pressure normalized -lifestyle modification and dietary habits counseling Respiratory #Acute hypoxemic respiratory failure due to severe diabetic ketoacidosis likely due to sepsis likely pneumonia UTI #Hypocapnia due to respiratory alkalosis response due to metabolic alkalosis due to DKA -currently on room air -same as above -IV antibiotics Gastrointestinal: /kidney #acute kidney injury likely hemodynamically mediated due to the VMN, creatinine improving #nonobstructive right sided kidney stone, 5 mm #Hypokalemia #fungal UTI -IV fluids -IV fluconazole -follow-up on kidney stone in the outpatient -K+ PO replacement Endocrinology #Uncontrolled type 2 diabetes, hemoglobin A1c 12.3 #Severe diabetic ketoacidosis #Metabolic acidosis due to DKA with respiratory alkalosis compensation, increased anion gap, current AGAP 16 #Hypovolemic hyponatremia due to severe hyperglycemia #Ketonuria #Metabolic syndrome #Type 2 obesity -same as above -Lantus 30 BID -Insulin sliding scale aggressive -Lifestyle modification counseling and dietary habits counseling Infectious disease: #history of recent urethral whitish discharge likely due to fungal UTI #leukocytosis due to SIRS, possible sepsis due to UTI -empiric IV antibiotics -IV fluids -blood cultures and urine cultures pending case discussed with Critical care, time spent not including procedures:61 minutes Code status: DNR/DNI Plan discussed with: Other (sister) Dietary Evaluation Review Comments: 1) Refer to outpatient RD/[facility] for diabetes education and weight management 2) Continue to monitor labs and PO intake Expected Outcomes/Goals: 1) appetite and labs to improve 2) f/u in 3-5 days Laboratory Results Laboratory Tests 01/02/25 05:58 Chemistry Test 01/02/25 05:58 Albumin 3.7 g/dL (3.2-4.8) Calcium Level 9.0 mg/dL (8.7-10.4) Total Protein 7.1 g/dL (5.7-8.2) LFT Test 01/02/25 05:58 Alanine Aminotransferase (ALT) 20 U/L (7-40) Alkaline Phosphatase 293 U/L (46-116) H Aspartate Amino Transferase (AST) 19 U/L (13-40) Total Bilirubin 0.5 mg/dL (0.2-1.0) Urinalysis Test 12/24/24 21:50 Urine Color Light-yellow (Yellow) Urine Clarity Clear (Clear) Urine pH 5.0 (5.0-9.0) Urine Specific [place] 1.022 (1.001-1.035) Urine Protein Trace (Negative) H Urine Ketones 4+ (Negative) H Urine Blood 2+ /uL (Negative) H Urine Nitrite Negative (Negative) Urine Bilirubin Negative (Negative) Urine Urobilinogen Normal mg/dL (Negative) Urine Leukocyte Esterase Negative /uL (Negative) Urine RBC 3 /hpf (0 - 3) Urine Microscopic WBC 1 /HPF (0-3) Urine Squamous Epithelial Cells Few /hpf (<5) Urine Bacteria None seen /hpf (None Seen) Urine Mucus Few (None Seen) Urine Yeast (Budding) Occasional /hpf (None Urine Glucose 4+ mg/dL (Normal) H Microbiology Microbiology Date/Time Source Procedure Growth Status 01/02/25 09:47 Hip Right Gram Stain - Final Resulted 01/02/25 09:47 Hip Right Anaerobic Culture Pending Resulted 01/02/25 09:47 Hip Right Aerobic Culture Pending Resulted 01/01/25 11:00 Aspirate Gram Stain - Final Resulted 01/01/25 11:00 Aspirate Body Fluid Culture - Preliminary Resulted 12/27/24 15:30 Blood Blood Culture - Final NO GROWTH AFTER 5 DAYS OF INCUBATION. Complete 12/25/24 08:30 Urine - [place] Urine Culture - Final Complete AMADOU TINOCO RESIDENT Jan 02, 2025 15:05
[2025-01-02] MEDS: VANCOMYCIN 1GM/250ML KIT 250 ML IV SCH (22:02)
[2025-01-03] VITALS (8 sets, daily range): BP systolic 104–129; BP diastolic 46–80; PULSE 64–99; RESP 14–18; TEMP 97.8–98.4; O2SAT 94–97
[2025-01-03 06:46] LABS: Basophils # (auto) 0 10 ^3/uL (0-0.2); Basophils % (auto) 0.3 % (0.0-2.0); Eosinophils # (auto) 0.2 10 ^3/uL (0-0.8); Eosinophils % (auto) 1.3 % (0.0-7.0); Hematocrit 35.8 % (41.0-53.0); Hemoglobin 12.2 g/dL (13.5-17.5); Lymphocytes # (auto) 1.3 10 ^3/uL (0.4-5.4); Lymphocytes % (auto) 9.5 % (10.0-50.0); Mean Corpuscular Hemoglobin 29.8 pg (28.0-32.0); Mean Corpuscular Volume 87.8 fL (80.0-100.0); Monocytes # (auto) 1.2 10 ^3/uL (0-1.3); Monocytes % (auto) 8.1 % (0.0-12.0); Neutrophils # (auto) 11.4 10 ^3/uL (1.6-8.6); Neutrophils % (auto) 80.8 % (37.0-80.0); Platelet Count (auto) 407 10^3/uL (140-450); Red Blood Cells 4.08 10^6/uL (4.5-5.90); Red Cell Distribution Width 12.6 % (11.8-14.3); White Blood Cell 14.2 10^3/uL (4.4-10.8)
[2025-01-03 06:58] LABS: Alanine Aminotransferase 14 U/L (7-40); Albumin 3.3 g/dL (3.2-4.8); Anion Gap 9 (5-15); BUN/Creatinine Ratio 12.5 (10.0-20.0); Blood Urea Nitrogen 15 mg/dL (9-23); Carbon Dioxide 25 mmol/L (20-31); Chloride 100 mmol/L (98-107); Potassium 4.1 mmol/L (3.5-5.1)
[2025-01-03 06:59] LABS: Bilirubin, Total 0.4 mg/dL (0.2-1.0); Total Protein 6.2 g/dL (5.7-8.2)
[2025-01-03 07:01] LABS: Alkaline Phosphatase 226 U/L (46-116); Aspartate Aminotransferase 11 U/L (13-40); Calcium 7.1 mg/dL (8.7-10.4); Creatine Kinase IFCC 15 U/L (46-171); Glucose 177 mg/dL (74-106); Sodium 134 mmol/L (136-145)
--- NOTE | 2025-01-03 14:42 | DVHPN2 ---
Subjective The patient is seen and examined at bedside. No change overnight. Reviewed: Care Plan, H&P, Labs, Medications, Previous Orders, Radiology Changes from previous H/P or p: No Changes Eyes: No Pain, No Vision change, No Conjunctivae inflammation, No Eyelid inflammation, No Other, No Redness ENT: No Ear pain, No Ear discharge, No Nose pain, No Nose discharge, No Nose congestion, No Mouth pain, No Mouth swelling, No Throat pain, No Throat swelling, No Other Cardiovascular: No Chest Pain, No Palpitations, No Orthopnea, No Paroxysmal Noc. Dyspnea, No Edema, No Lt Headedness, No Other Respiratory: No Cough, No Dry; Shortness of breath; No SOB with excertion, No Wheezing, No Hemoptysis, No Pleuritic Pain, No Sputum, No Other Gastrointestinal: No Nausea, No Vomiting, No Abdominal Pain, No Diarrhea, No Constipation, No Melena, No Hematochezia, No Other Genitourinary: No Dysuria, No Frequency, No Incontinence, No Hematuria, No Retention, No Other Musculoskeletal: No other, No neck pain, No shoulder pain, No arm pain, No back pain, No hand pain; leg pain; No foot pain Skin: No Rash, No Lesions, No Jaundice, No Bruising, No Other Objective Vitals Vital Signs Date Time Temp Pulse Resp B/P (MAP) Pulse Ox O2 Delivery O2 Flow Rate FiO2 01/03/25 14:07 67 14 129/73 01/03/25 08:30 98.4 96 98.4 01/03/25 08:00 Room Air* 0 21 Intake/Output Intake and Output 01/03/25 07:00 Intake Total 1390 ml Output Total 1600 ml Balance -210 ml Intake Oral 1090 ml IV Total 300 ml Output Urine Total 1600 ml # Voids 1 General Appearance: Alert, No acute distress HEENT: Atraumatic, PERRLA, EOMI, Mucous membr. moist/pink Neck: Supple Lungs: Clear to auscultation, Normal air movement Cardiovascular: Regular rate, Normal S1, Normal S2, No murmurs, Gallops, Rubs Abdomen: Normal bowel sounds, Soft, No tenderness Neuro: Cranial nerves 3-12 NL Psych/Mental Status: Mental status NL Medications Current Medications Medications Dose Ordered Sig/Loly Route Start Time Stop Time Status Last Admin Dose Admin Acetaminophen 650 mg Q6HP PRN PO 12/25/24 01:30 12/30/24 10:23 650 MG Dextrose 50 ml PRN PRN IV 12/25/24 05:00 Vancomycin HCl 0 ml @ 0 mls/hr UD IV 12/25/24 06:45 Diagnostic Test (Pha) 1 strip ACHS 12/26/24 17:00 01/03/25 11:34 1 STRIP Insulin Human Regular HS SC 12/26/24 22:00 01/02/25 22:18 4 UNITS Pantoprazole Sodium 40 mg DAILY@0600 PO 12/27/24 06:00 01/03/25 06:14 40 MG Insulin Human Regular AC SC 12/27/24 11:30 01/03/25 11:30 4 UNITS Morphine Sulfate 2 mg Q4HP PRN IV 12/30/24 14:15 01/03/25 14:07 2 MG Docusate Sodium 100 mg BID PO 12/30/24 22:00 01/03/25 09:34 100 MG Fluconazole 100 ml @ 100 mls/hr DAILY IV 12/31/24 10:00 01/03/25 09:35 100 MLS/HR Losartan Potassium 50 mg DAILY PO 01/01/25 10:00 01/03/25 09:35 50 MG Piperacillin Sod/ Tazobactam Sod 100 ml @ 25 mls/hr Q8H IV 01/01/25 10:00 01/03/25 11:34 25 MLS/HR Insulin Glargine 30 units BID@0700,2200 SC 01/01/25 22:00 01/03/25 06:21 30 UNITS Vancomycin HCl 250 ml @ 250 mls/hr Q16H IV 01/02/25 22:00 01/03/25 14:06 250 MLS/HR Laboratory Results Laboratory Tests 01/03/25 05:40 Chemistry Test 01/03/25 05:40 Albumin 3.3 g/dL (3.2-4.8) Calcium Level 7.1 mg/dL (8.7-10.4) L Total Protein 6.2 g/dL (5.7-8.2) LFT Test 01/03/25 05:40 Alanine Aminotransferase (ALT) 14 U/L (7-40) Alkaline Phosphatase 226 U/L (46-116) H Aspartate Amino Transferase (AST) 11 U/L (13-40) L Total Bilirubin 0.4 mg/dL (0.2-1.0) Urinalysis Test 12/24/24 21:50 Urine Color Light-yellow (Yellow) Urine Clarity Clear (Clear) Urine pH 5.0 (5.0-9.0) Urine Specific [place] 1.022 (1.001-1.035) Urine Protein Trace (Negative) H Urine Ketones 4+ (Negative) H Urine Blood 2+ /uL (Negative) H Urine Nitrite Negative (Negative) Urine Bilirubin Negative (Negative) Urine Urobilinogen Normal mg/dL (Negative) Urine Leukocyte Esterase Negative /uL (Negative) Urine RBC 3 /hpf (0 - 3) Urine Microscopic WBC 1 /HPF (0-3) Urine Squamous Epithelial Cells Few /hpf (<5) Urine Bacteria None seen /hpf (None Seen) Urine Mucus Few (None Seen) Urine Yeast (Budding) Occasional /hpf (None Urine Glucose 4+ mg/dL (Normal) H Microbiology Microbiology Date/Time Source Procedure Growth Status 01/02/25 09:47 Hip Right Gram Stain - Final Resulted 01/02/25 09:47 Hip Right Anaerobic Culture - Preliminary Resulted 01/02/25 09:47 Hip Right Aerobic Culture - Preliminary Resulted 01/01/25 11:00 Aspirate Gram Stain - Final Resulted 01/01/25 11:00 Body Fluid Culture - Preliminary Staphylococcus aureus Resulted 12/27/24 15:30 Blood Blood Culture - Final NO GROWTH AFTER 5 DAYS OF INCUBATION. Complete 12/25/24 08:30 Urine - [place] Urine Culture - Final Complete Labs and/or images reviewed: Labs reviewed by me Assessment/Plan Assessment/Plan #Acute metabolic/hypertensive encephalopathy due to severe diabetic ketoacidosis due to sepsis likely pneumonia/UTI, resolved -patient is currently on room air -lantus 30 sc bid units with aggressive sliding scale -consistent carbohydrate diet - Continue IV antibiotics Musculoskeletal: # Sepsis due to large right hip abscess s/p I &D #Large multiloculated area of fluid in the subcutaneous tissues in the proximal posterior lateral right thigh #Rule out malignancy - I&D ,200 CC purulent fluid removed - Continue IV atb - wound vac - right hip , body fluid cultures, preliminary results growing staph aureus. Cardiovascular: #acute metabolic/ hypertensive encephalopathy likely multifactorial due DKA to hypertensive emergency #hypertriglyceridemia #sinus tachycardia ,resolved -blood pressure normalized -lifestyle modification and dietary habits counseling Respiratory #Acute hypoxemic respiratory failure due to severe diabetic ketoacidosis likely due to sepsis likely pneumonia UTI #Hypocapnia due to respiratory alkalosis response due to metabolic alkalosis due to DKA -currently on room air -same as above -IV antibiotics Gastrointestinal: /kidney #acute kidney injury likely hemodynamically mediated due to the VMN, creatinine improving #nonobstructive right sided kidney stone, 5 mm #Hypokalemia #fungal UTI -IV fluids -IV fluconazole -follow-up on kidney stone in the outpatient -K+ PO replacement Endocrinology #Uncontrolled type 2 diabetes, hemoglobin A1c 12.3 #Severe diabetic ketoacidosis #Metabolic acidosis due to DKA with respiratory alkalosis compensation, increased anion gap, current AGAP 16 #Hypovolemic hyponatremia due to severe hyperglycemia #Ketonuria #Metabolic syndrome #Type 2 obesity -same as above -Lantus 30 BID -Insulin sliding scale aggressive -Lifestyle modification counseling and dietary habits counseling Infectious disease: #history of recent urethral whitish discharge likely due to fungal UTI #leukocytosis due to SIRS, possible sepsis due to UTI -empiric IV antibiotics -IV fluids -blood cultures on 01/01 show no growth. Continuing current management. Discussed with patient and at bedside regarding to plan of care. Plan discussed with: Patient, Spouse Date of Service: Jan 03, 2025 Billing Provider: JOÃO CHRISTIANSON MD Common Visit Codes: [id number] INP/OBS CARE(HIGH) JOÃO CHRISTIANSON MD Jan 03, 2025 14:42
[2025-01-04] VITALS (8 sets, daily range): BP systolic 106–151; BP diastolic 73–87; PULSE 88–104; RESP 16–20; TEMP 97.8–98.6; O2SAT 95–97
--- NOTE | 2025-01-04 12:40 | DVHPN2 ---
Subjective The patient is seen and examined at bedside. No change overnight. No fever or chills Reviewed: Care Plan, H&P, Labs, Medications, Previous Orders, Radiology Changes from previous H/P or p: No Changes Eyes: No Pain, No Vision change, No Conjunctivae inflammation, No Eyelid inflammation, No Other, No Redness ENT: No Ear pain, No Ear discharge, No Nose pain, No Nose discharge, No Nose congestion, No Mouth pain, No Mouth swelling, No Throat pain, No Throat swelling, No Other Cardiovascular: No Chest Pain, No Palpitations, No Orthopnea, No Paroxysmal Noc. Dyspnea, No Edema, No Lt Headedness, No Other Respiratory: No Cough, No Dry; Shortness of breath; No SOB with excertion, No Wheezing, No Hemoptysis, No Pleuritic Pain, No Sputum, No Other Gastrointestinal: No Nausea, No Vomiting, No Abdominal Pain, No Diarrhea, No Constipation, No Melena, No Hematochezia, No Other Genitourinary: No Dysuria, No Frequency, No Incontinence, No Hematuria, No Retention, No Other Musculoskeletal: No other, No neck pain, No shoulder pain, No arm pain, No back pain, No hand pain; leg pain; No foot pain Skin: No Rash, No Lesions, No Jaundice, No Bruising, No Other Objective Vitals Vital Signs Date Time Temp Pulse Resp B/P (MAP) Pulse Ox O2 Delivery O2 Flow Rate FiO2 01/04/25 12:39 97.8 88 20 149/84 (105) 97 97.8 01/03/25 20:00 Room Air* 0 21 Intake/Output Intake and Output 01/04/25 07:00 Intake Total 770 ml Output Total 1075 ml Balance -305 ml Intake Oral 320 ml IV Total 450 ml Output Urine Total 1075 ml # Voids 3 General Appearance: Alert, No acute distress HEENT: Atraumatic, PERRLA, EOMI, Mucous membr. moist/pink Neck: Supple Lungs: Clear to auscultation, Normal air movement Cardiovascular: Regular rate, Normal S1, Normal S2, No murmurs, Gallops, Rubs Abdomen: Normal bowel sounds, Soft, No tenderness Neuro: Cranial nerves 3-12 NL Psych/Mental Status: Mental status NL Medications Current Medications Medications Dose Ordered Sig/Loly Route Start Time Stop Time Status Last Admin Dose Admin Acetaminophen 650 mg Q6HP PRN PO 12/25/24 01:30 12/30/24 10:23 650 MG Dextrose 50 ml PRN PRN IV 12/25/24 05:00 Vancomycin HCl 0 ml @ 0 mls/hr UD IV 12/25/24 06:45 Diagnostic Test (Pha) 1 strip ACHS 12/26/24 17:00 01/04/25 11:39 1 STRIP Insulin Human Regular HS SC 12/26/24 22:00 01/03/25 22:17 6 UNITS Pantoprazole Sodium 40 mg DAILY@0600 PO 12/27/24 06:00 01/04/25 05:39 40 MG Insulin Human Regular AC SC 12/27/24 11:30 01/04/25 11:49 2 UNITS Morphine Sulfate 2 mg Q4HP PRN IV 12/30/24 14:15 01/04/25 01:05 2 MG Docusate Sodium 100 mg BID PO 12/30/24 22:00 01/04/25 10:54 100 MG Fluconazole 100 ml @ 100 mls/hr DAILY IV 12/31/24 10:00 01/04/25 10:54 100 MLS/HR Losartan Potassium 50 mg DAILY PO 01/01/25 10:00 01/04/25 11:38 50 MG Piperacillin Sod/ Tazobactam Sod 100 ml @ 25 mls/hr Q8H IV 01/01/25 10:00 01/04/25 11:39 25 MLS/HR Insulin Glargine 30 units BID@0700,2200 SC 01/01/25 22:00 01/04/25 06:19 30 UNITS Vancomycin HCl 250 ml @ 250 mls/hr Q16H IV 01/02/25 22:00 01/04/25 05:40 250 MLS/HR Laboratory Results Laboratory Tests 01/03/25 05:40 Urinalysis Test 12/24/24 21:50 Urine Color Light-yellow (Yellow) Urine Clarity Clear (Clear) Urine pH 5.0 (5.0-9.0) Urine Specific [place] 1.022 (1.001-1.035) Urine Protein Trace (Negative) H Urine Ketones 4+ (Negative) H Urine Blood 2+ /uL (Negative) H Urine Nitrite Negative (Negative) Urine Bilirubin Negative (Negative) Urine Urobilinogen Normal mg/dL (Negative) Urine Leukocyte Esterase Negative /uL (Negative) Urine RBC 3 /hpf (0 - 3) Urine Microscopic WBC 1 /HPF (0-3) Urine Squamous Epithelial Cells Few /hpf (<5) Urine Bacteria None seen /hpf (None Seen) Urine Mucus Few (None Seen) Urine Yeast (Budding) Occasional /hpf (None Urine Glucose 4+ mg/dL (Normal) H Microbiology Microbiology Date/Time Source Procedure Growth Status 01/02/25 09:47 Hip Right Gram Stain - Final Resulted 01/02/25 09:47 Hip Right Anaerobic Culture - Preliminary Resulted 01/02/25 09:47 Hip Right Aerobic Culture - Preliminary Resulted 01/01/25 11:00 Aspirate Gram Stain - Final Resulted 01/01/25 11:00 Body Fluid Culture - Preliminary Staphylococcus aureus Resulted 12/27/24 15:30 Blood Blood Culture - Final NO GROWTH AFTER 5 DAYS OF INCUBATION. Complete 12/25/24 08:30 Urine - [place] Urine Culture - Final Complete Labs and/or images reviewed: Labs reviewed by me Assessment/Plan Assessment/Plan #Acute metabolic/hypertensive encephalopathy due to severe diabetic ketoacidosis due to sepsis likely pneumonia/UTI, resolved -patient is currently on room air -lantus 30 sc bid units with aggressive sliding scale -consistent carbohydrate diet - Continue IV antibiotics Musculoskeletal: # Sepsis due to large right hip abscess s/p I &D #Large multiloculated area of fluid in the subcutaneous tissues in the proximal posterior lateral right thigh #Rule out malignancy - I&D ,200 CC purulent fluid removed - Continue IV atb - wound vac - right hip , body fluid cultures, preliminary results growing staph aureus. Cardiovascular: #acute metabolic/ hypertensive encephalopathy likely multifactorial due DKA to hypertensive emergency #hypertriglyceridemia #sinus tachycardia ,resolved -blood pressure normalized -lifestyle modification and dietary habits counseling Respiratory #Acute hypoxemic respiratory failure due to severe diabetic ketoacidosis likely due to sepsis likely pneumonia UTI #Hypocapnia due to respiratory alkalosis response due to metabolic alkalosis due to DKA -currently on room air -same as above -IV antibiotics Gastrointestinal: /kidney #acute kidney injury likely hemodynamically mediated due to the VMN, creatinine improving #nonobstructive right sided kidney stone, 5 mm #Hypokalemia #fungal UTI -IV fluids -IV fluconazole -follow-up on kidney stone in the outpatient -K+ PO replacement Endocrinology #Uncontrolled type 2 diabetes, hemoglobin A1c 12.3 #Severe diabetic ketoacidosis #Metabolic acidosis due to DKA with respiratory alkalosis compensation, increased anion gap, current AGAP 16 #Hypovolemic hyponatremia due to severe hyperglycemia #Ketonuria #Metabolic syndrome #Type 2 obesity -same as above -Lantus 30 BID -Insulin sliding scale aggressive -Lifestyle modification counseling and dietary habits counseling Infectious disease: #history of recent urethral whitish discharge likely due to fungal UTI #leukocytosis due to SIRS, possible sepsis due to UTI -empiric IV antibiotics -IV fluids -blood cultures on 01/01 show no growth. Continuing current management. Discussed with patient and at bedside regarding to plan of care. Plan discussed with: Patient, Spouse Date of Service: Jan 04, 2025 Billing Provider: JOÃO CHRISTIANSON MD Common Visit Codes: [id number] INP/OBS CARE(HIGH) JOÃO CHRISTIANSON MD Jan 04, 2025 12:40
[2025-01-04] MEDS: VANCOMYCIN 1.25GM/250ML 250 ML IV SCH (17:00)
[2025-01-05] VITALS (8 sets, daily range): BP systolic 120–133; BP diastolic 60–81; PULSE 87–107; RESP 14–18; TEMP 97.6–98.8; O2SAT 94–99
[2025-01-05 06:44] LABS: Basophils # (auto) 0.1 10 ^3/uL (0-0.2); Basophils % (auto) 0.4 % (0.0-2.0); Eosinophils # (auto) 0.2 10 ^3/uL (0-0.8); Lymphocytes # (auto) 1.2 10 ^3/uL (0.4-5.4)
[2025-01-05 06:46] LABS: Eosinophils % (auto) 1.4 % (0.0-7.0); Hematocrit 36.6 % (41.0-53.0); Hemoglobin 12.2 g/dL (13.5-17.5); Lymphocytes % (auto) 8.1 % (10.0-50.0); Mean Corpuscular Hemoglobin 29.1 pg (28.0-32.0); Mean Corpuscular Hgb Conc. 33.2 g/dL (32.0-36.0); Mean Corpuscular Volume 87.5 fL (80.0-100.0); Monocytes % (auto) 6.6 % (0.0-12.0); Neutrophils # (auto) 12.7 10 ^3/uL (1.6-8.6); Neutrophils % (auto) 83.5 % (37.0-80.0); Nucleated Red Blood Cells % 0.1 %; Platelet Count (auto) 508 10^3/uL (140-450); Red Blood Cells 4.18 10^6/uL (4.5-5.90); Red Cell Distribution Width 12.5 % (11.8-14.3); White Blood Cell 15.2 10^3/uL (4.4-10.8)
[2025-01-05 06:59] LABS: Alanine Aminotransferase 15 U/L (7-40); Albumin 3.7 g/dL (3.2-4.8); Anion Gap 10 (5-15); BUN/Creatinine Ratio 10.4 (10.0-20.0); Bilirubin, Total 0.4 mg/dL (0.2-1.0); Blood Urea Nitrogen 12 mg/dL (9-23); Calcium 9.3 mg/dL (8.7-10.4); Carbon Dioxide 24 mmol/L (20-31); Chloride 101 mmol/L (98-107); Total Protein 6.9 g/dL (5.7-8.2)
[2025-01-05 07:04] LABS: Alkaline Phosphatase 239 U/L (46-116); Aspartate Aminotransferase 12 U/L (13-40); Glucose 141 mg/dL (74-106); Sodium 135 mmol/L (136-145)
--- NOTE | 2025-01-05 16:02 | MEDREC ---
[facility] ASP Intervention Section I [facility] ASP Intervention: Deescalate AB based on CS (PLEASE CONSIDER DE-ESCALATION BASED ON CULTURE RESULTS (MSSA)) ROBERTA SOTO PHARMACIST Jan 05, 2025 16:01
--- NOTE | 2025-01-05 16:53 | DVHPNRES ---
Progress Note Date Seen: Jan 05, 2025 Resident Creating Document: AMADOU TINOCO RESIDENT Has the PT tested + for MRSA If YES, has PT been informed?: Yes Medical Necessity Reason Pt with a Central, PICC or Fol: No Subjective Review of Systems Patient examined at bedside, patient reports no symtoms, he denies pain, fever , diarrhea o weakness. Right hip absces s/p I&D , wound vac on place , not draining since the last 48 hours, regarding labs, WBC:15 and based on antibiogram the patient will not longer need Vancomycin and zozyn, for which he was started on Unasyn IV, he is still having whitish discharge from the urethra, current therapy of Fluconazol IV was transitioned to oral. We will continue monitoring clinical progress closely. Patient reports: Feels better Changes from previous H/P or p: Changes Review of Systems: HEENT:Normal, CVS:Normal, RESPIRATORY:Normal, GI:Normal, :Abnormal Objective vital signs Vital Sign Date Time Temp Pulse Resp B/P (MAP) Pulse Ox O2 Delivery O2 Flow Rate FiO2 01/05/25 13:00 98.0 89 18 120/75 (90) 98 98.0 01/05/25 08:00 Room Air* 0 21 Total Intake and Output 01/04/25 01/04/25 01/05/25 15:00 23:00 07:00 Intake Total 100 ml 840 ml 850 ml Output Total 1300 ml Balance 100 ml -460 ml 850 ml medications Current Medications Medications Dose Ordered Sig/Loly Route Start Time Stop Time Status Last Admin Dose Admin Acetaminophen 650 mg Q6HP PRN PO 12/25/24 01:30 12/30/24 10:23 650 MG Dextrose 50 ml PRN PRN IV 12/25/24 05:00 Diagnostic Test (Pha) 1 strip ACHS 12/26/24 17:00 01/05/25 11:39 1 STRIP Insulin Human Regular HS SC 12/26/24 22:00 01/04/25 21:19 2 UNITS Pantoprazole Sodium 40 mg DAILY@0600 PO 12/27/24 06:00 01/05/25 05:21 40 MG Insulin Human Regular AC SC 12/27/24 11:30 01/05/25 06:50 4 UNITS Morphine Sulfate 2 mg Q4HP PRN IV 12/30/24 14:15 01/04/25 01:05 2 MG Docusate Sodium 100 mg BID PO 12/30/24 22:00 01/05/25 11:09 100 MG Losartan Potassium 50 mg DAILY PO 01/01/25 10:00 01/05/25 11:10 50 MG Insulin Glargine 20 units BID@0700,2200 SC 01/05/25 22:00 Ampicillin Sodium/ Sulbactam Sodium 3 gm/Sodium Chloride 100 ml @ 100 mls/hr Q6H IV 01/05/25 16:15 Fluconazole 200 mg DAILY PO 01/06/25 10:00 Examination: GENERAL:Normal, HEENT:Normal, NECK:Normal, LUNGS:Normal, CVS:Normal, ABDOMEN:Normal, MSK:Normal, SKIN:Abnormal, NEURO:Normal, :Normal laboratory and microbiology Laboratory Tests 01/05/25 06:11 Test 01/05/25 06:11 Range/Units Serum Glucose 141 H 74-106 mg/dL Microbiology Date/Time Source Procedure Growth Status 01/02/25 09:47 Hip Right Gram Stain - Final Resulted 01/02/25 09:47 Hip Right Anaerobic Culture - Preliminary Resulted 01/02/25 09:47 Aerobic Culture - Final Staphylococcus aureus Resulted 01/01/25 11:00 Aspirate Gram Stain - Final Complete 01/01/25 11:00 Body Fluid Culture - Final Staphylococcus aureus Complete 12/27/24 15:30 Blood Blood Culture - Final NO GROWTH AFTER 5 DAYS OF INCUBATION. Complete 12/25/24 08:30 Urine - [place] Urine Culture - Final Complete Problem List/Assessment/Plan Problem List/Assessment/Plan Neurology #Acute metabolic/hypertensive encephalopathy due to severe diabetic ketoacidosis due to sepsis likely pneumonia/UTI, resolved -patient is currently on room air -lantus 20 sc bid units with aggressive sliding scale -consistent carbohydrate diet - Unasyn IV Musculoskeletal: # Sepsis due to large right hip abscess s/p I &D #Large multiloculated area of fluid in the subcutaneous tissues in the proximal posterior lateral right thigh #Rule out malignancy - I&D ,200 CC purulent fluid removed - Continue IV atb - wound vac, not draining since the last 48h. - right hip , body fluid cultures, final results : staph aureus.MSSA - Unasyn IV Cardiovascular: #acute metabolic/ hypertensive encephalopathy likely multifactorial due to DKA / hypertensive emergency #hypertriglyceridemia #sinus tachycardia #Hypertension -Losartan 50 mg PO Daily -lifestyle modification and dietary habits counseling Respiratory #Acute hypoxemic respiratory failure due to severe diabetic ketoacidosis likely due to sepsis due to Right hip abscess #metabolic alkalosis due to DKA #respiratory alkalosis -currently on room air -same as above -Unasyn IV Gastrointestinal: /kidney #acute kidney injury likely hemodynamically mediated due to the VMN, creatinine improving #nonobstructive right sided kidney stone, 5 mm #Hypokalemia,replenished #fungal UTI - fluconazole 200 mg PO Daily - follow-up on kidney stone in the outpatient Hematology #Normocytic normochromic anemia #Reactive thrombocytosis Endocrinology #Uncontrolled type 2 diabetes, hemoglobin A1c 12.3 #DKA,resolved #Hypovolemic hyponatremia due to severe hyperglycemia, resolved #Ketonuria #Metabolic syndrome #Type 2 obesity -same as above -Lantus 20 BID -Insulin aggressive sliding scale -Lifestyle modification counseling and dietary habits counseling Infectious disease: #history of recent urethral whitish discharge likely due to fungal UTI #Severe sepsis due to large right hip abscess due to staphylococcus aureus MSSA - Unasyn IV - Pancultures positive for staph aureus MSSA case discussed with Goals of care discussed with patient , family and nurse: 43 minutes Code status: DNR/DNI Plan discussed with: Patient, Other (sister) My Orders My Orders Orders - AMADOU TINOCO RESIDENT Procedure Category Date Status Time Erythrocyte LAB 01/05/25 In Process Sedimentation Rate 13:16 Dietary Evaluation Review Comments: 1) Refer to outpatient RD/[facility] for diabetes education and weight management 2) Continue to monitor labs and PO intake Expected Outcomes/Goals: 1) appetite and labs to improve 2) f/u in 3-5 days AMADOU TINOCO RESIDENT Jan 05, 2025 16:53
[2025-01-05 17:39] LABS: Erythrocyte Sedimentation Rate 92 mm/hr (0-20)
[2025-01-05] MEDS: AMPICILLIN & SULBACTAM SODIUM 3 GM in SODIUM CHL 0.9% 100 ML IV SCH (17:56)
[2025-01-05] MEDS: INSULIN LANTUS (GLARGINE) 1 /0.01ml (100units/ml) SC SCH (21:05)
[2025-01-06] VITALS (7 sets, daily range): BP systolic 108–138; BP diastolic 53–84; PULSE 86–106; RESP 18–20; TEMP 98.1–98.7; O2SAT 95–97
[2025-01-06 07:39] LABS: Hemoglobin 12.2 g/dL (13.5-17.5)
[2025-01-06 07:40] LABS: Mean Corpuscular Hemoglobin 29.5 pg (28.0-32.0); Mean Corpuscular Volume 86.9 fL (80.0-100.0); Platelet Count (auto) 563 10^3/uL (140-450); Red Blood Cells 4.15 10^6/uL (4.5-5.90); Red Cell Distribution Width 13.1 % (11.8-14.3)
[2025-01-06 07:59] LABS: Chloride 103 mmol/L (98-107); Potassium 3.8 mmol/L (3.5-5.1); Sodium 138 mmol/L (136-145)
[2025-01-06 08:00] LABS: Anion Gap 10 (5-15); Calcium 8.9 mg/dL (8.7-10.4); Carbon Dioxide 25 mmol/L (20-31)
[2025-01-06] MEDS: FLUCONAZOLE 100 MG TAB PO SCH (08:03)
[2025-01-06 08:05] LABS: BUN/Creatinine Ratio 10.8 (10.0-20.0); Blood Urea Nitrogen 11 mg/dL (9-23); Glucose 88 mg/dL (74-106)
[2025-01-06 08:15] LABS: Band Neutrophils % (manual) 0; Basophils % (manual) 0 (0.0-2.0); Blast Cells 0; Metamyelocytes % 0; Myelocytes % 0; Promyelocytes % 0; Reactive Lymphocytes 0
[2025-01-06 09:40] LABS: Eosinophils % (manual) 2 (0-7); Lymphocytes % (manual) 13 (10.0-50.0); Monocytes % (manual) 3 (0-12)
[2025-01-06 09:43] LABS: Platelet Estimate Increased
[2025-01-06] MEDS: InsuLIN REG 1unit/0.01ml Soln (100units/ml) SC SCH ×2 (11:49→21:08)
--- NOTE | 2025-01-06 16:02 | DVHPN2 ---
Progress Note Progress Note Right Hip I&D DOS: 02 Jan 2025 S: Pt reports pain controlled with oral pain meds. Pt denies any new numbness or tingling, No erythema, edema, warmth, discharge over incision site that is covered by Prevena wound vac. No acute events overnight. Denies F/C. Denies CP/SOB/palpitations. Denies lightheadedness/dizziness O: The patient is awake resting comfortably in bed. Right hip reveals surgical prevena wound vac is functional , dry and intact. Skin @incision site with no warmth, erythema, edema, minimal swelling is noted. Pt is able to motor fire quad, dorsiflex and plantar flex toes and ankle. SILT over the sural, saphenous, tibial, deep and superficial peroneal nerve distribution patterns. 2+ DP, BCR, euthermic A/P: S/p Right Hip I&D , expected post-operative course. Currently managed by Medicine team with IV abx based on Antibiogram from cultures collected during surgery The patient is medically stable and doing well. ORTHO RECS TO MEDICINE TEAM: Pt can transition from IV abx to Oral abx, continue prevena wound vac, Discharge with outpatient followup on upcoming sunday (12 January 2025) with Orthopedic. ER for new worsening of s/s. Above plan discussed with Medicine team Dr. Infante and patient All questions answered Dr. Hatfield agrees with above plan(Operating Surgeon) Plan discussed with: Patient, Other (Dr. Infante) Date of Service: Jan 06, 2025 Billing Provider: PAULA PALOMARES Common Visit Codes: [id number] INP/OBS CARE(MOD) PAULA PALOMARES Jan 06, 2025 16:02
--- NOTE | 2025-01-06 16:12 | DVHPNRES ---
Progress Note Date Seen: Jan 06, 2025 Resident Creating Document: AMADOU TINOCO RESIDENT Has the PT tested + for MRSA If YES, has PT been informed?: Yes Medical Necessity Reason Pt with a Central, PICC or Fol: No Subjective Review of Systems 49-year-old male patient with past medical history of type 2 diabetes, type 1 obesity who was admitted to the hospital on 12/25/2024 with a chief complaint of increased work of breathing and right hip pain, patient laboratory results, ABG, clinical presentation was consistent for diabetic ketoacidosis for which the patient was started on insulin drip, electrolyte replacement, and was transferred to the ICU. On 01/02 the patient was sent to the OR for an incision and drainage of a right hip abscess, a wound VAC was placed. Microbiology showed Staphylococcus aureus MSSA, for which the patient was started on ampicillin sulbactam. Vital signs are within normal limits and patient denies any new complaint. CMP showed white blood cell count on , the previous CMP taken yesterday was on white blood cell 15.2. We will continue monitoring laboratory results and clinical status, patient will need to continue antibiotics and transition to oral antibiotics on discharge. He will need to follow up with ortho on Sunday. Patient reports: Feels better Changes from previous H/P or p: Changes Review of Systems: HEENT:Normal, CVS:Normal, RESPIRATORY:Normal, GI:Normal, :Normal, MSK:Normal, NEURO:Normal Objective vital signs Vital Sign Date Time Temp Pulse Resp B/P (MAP) Pulse Ox O2 Delivery O2 Flow Rate FiO2 01/06/25 13:00 98.1 106 20 108/80 (89) 96 98.1 01/06/25 08:00 Room Air* 0 21 Total Intake and Output 01/05/25 01/05/25 01/06/25 15:00 23:00 07:00 Intake Total 100 ml 580 ml 600 ml Balance 100 ml 580 ml 600 ml medications Current Medications Medications Dose Ordered Sig/Loly Route Start Time Stop Time Status Last Admin Dose Admin Acetaminophen 650 mg Q6HP PRN PO 12/25/24 01:30 12/30/24 10:23 650 MG Dextrose 50 ml PRN PRN IV 12/25/24 05:00 Diagnostic Test (Pha) 1 strip ACHS 12/26/24 17:00 01/06/25 11:49 1 STRIP Pantoprazole Sodium 40 mg DAILY@0600 PO 12/27/24 06:00 01/06/25 06:12 40 MG Morphine Sulfate 2 mg Q4HP PRN IV 12/30/24 14:15 01/04/25 01:05 2 MG Docusate Sodium 100 mg BID PO 12/30/24 22:00 01/06/25 08:03 100 MG Losartan Potassium 50 mg DAILY PO 01/01/25 10:00 01/06/25 08:02 50 MG Ampicillin Sodium/ Sulbactam Sodium 3 gm/Sodium Chloride 100 ml @ 100 mls/hr Q6H IV 01/05/25 16:15 01/06/25 08:03 100 MLS/HR Fluconazole 200 mg DAILY PO 01/06/25 10:00 01/06/25 08:03 200 MG Insulin Glargine 15 units BID@0700,2200 SC 01/06/25 22:00 Insulin Human Regular HS SC 01/06/25 22:00 Insulin Human Regular AC SC 01/06/25 11:30 01/06/25 11:49 3 UNITS Examination: GENERAL:Normal, HEENT:Normal, NECK:Normal, LUNGS:Normal, CVS:Normal, ABDOMEN:Normal, MSK:Normal, SKIN:Abnormal, NEURO:Normal, :Normal laboratory and microbiology Laboratory Tests 01/06/25 05:42 Test 01/06/25 05:42 Range/Units Serum Glucose 88 74-106 mg/dL Microbiology Date/Time Source Procedure Growth Status 01/02/25 09:47 Hip Right Gram Stain - Final Resulted 01/02/25 09:47 Hip Right Anaerobic Culture - Preliminary Resulted 01/02/25 09:47 Aerobic Culture - Final Staphylococcus aureus Resulted 01/01/25 11:00 Aspirate Gram Stain - Final Complete 01/01/25 11:00 Body Fluid Culture - Final Staphylococcus aureus Complete 12/27/24 15:30 Blood Blood Culture - Final NO GROWTH AFTER 5 DAYS OF INCUBATION. Complete 12/25/24 08:30 Urine - [place] Urine Culture - Final Complete Problem List/Assessment/Plan Problem List/Assessment/Plan Neurology #Acute metabolic/hypertensive encephalopathy due to severe diabetic ketoacidosis due to sepsis due to right hip abscess, resolving # fungal urinary tract infection, resolving -fluconazole 200 mg p.o. daily -patient is currently on room air -lantus 15 sc bid units with moderate sliding scale -consistent carbohydrate diet - Unasyn IV Musculoskeletal: # Sepsis due to large right hip abscess s/p I &D #Large multiloculated area of fluid in the subcutaneous tissues in the proximal posterior lateral right thigh #Rule out malignancy - I&D ,200 CC purulent fluid removed - Continue IV atb - wound vac, not draining since the last 3 days. - right hip , body fluid cultures, final results : staph aureus.MSSA - Unasyn IV Cardiovascular: #acute metabolic/ hypertensive encephalopathy likely multifactorial due to DKA / hypertensive emergency #hypertriglyceridemia #sinus tachycardia #Hypertension -Losartan 50 mg PO Daily -lifestyle modification and dietary habits counseling Respiratory #Acute hypoxemic respiratory failure due to severe diabetic ketoacidosis likely due to sepsis due to Right hip abscess #metabolic alkalosis due to DKA #respiratory alkalosis -currently on room air -same as above -Unasyn IV Gastrointestinal: /kidney #acute kidney injury likely hemodynamically mediated due to the VMN, creatinine improving #nonobstructive right sided kidney stone, 5 mm #Hypokalemia,replenished #fungal UTI - fluconazole 200 mg PO Daily - follow-up on kidney stone in the outpatient Hematology #Normocytic normochromic anemia #Reactive thrombocytosis Endocrinology #Uncontrolled type 2 diabetes, hemoglobin A1c 12.3 #DKA,resolved #Hypovolemic hyponatremia due to severe hyperglycemia, resolved #Ketonuria #Metabolic syndrome #Type 2 obesity -same as above -Lantus 15 BID -Insulin moderate sliding scale -Lifestyle modification counseling and dietary habits counseling Infectious disease: #history of recent urethral whitish discharge likely due to fungal UTI #Severe sepsis due to large right hip abscess due to staphylococcus aureus MSSA - Unasyn IV - Pancultures positive for staph aureus MSSA case discussed with Critical care, time spent: 43 minutes Code status: DNR/DNI Plan discussed with: Patient, Other (sister) My Orders My Orders Orders - AMADOU TINOCO RESIDENT Procedure Category Date Status Time Insulin Lantus PHA 01/06/25 In Process (Glargine) (Lantus) 22:00 Insulin R (Human) PHA 01/06/25 In Process (Insulin R) 22:00 Insulin R (Human) PHA 01/06/25 In Process (Insulin R) 11:30 Dietary Evaluation Review Comments: 1) Refer to outpatient RD/[facility] for diabetes education and weight management 2) Continue to monitor labs and PO intake Expected Outcomes/Goals: 1) appetite and labs to improve 2) f/u in 3-5 days AMADOU TINOCO RESIDENT Jan 06, 2025 16:12
[2025-01-06] MEDS: INSULIN LANTUS (GLARGINE) 1 /0.01ml (100units/ml) SC SCH (21:12)
[2025-01-07 01:00] VITALS: BP 123/73; PULSE 96; RESP 20; TEMP 99.2; O2SAT 97
[2025-01-07 06:18] VITALS: BP 135/81; PULSE 85; RESP 18; TEMP 98.2; O2SAT 97
[2025-01-07 08:50] VITALS: BP 141/81; PULSE 89; RESP 16; TEMP 98.1; O2SAT 98
[2025-01-07] MEDS ORDERED: INSU100I28 IJ (10:05)
[2025-01-07] MEDS ORDERED: INSLANTI SC ×3 (10:05→17:06)
[2025-01-07] MEDS ORDERED: AUG875T PO (10:06)
[2025-01-07] MEDS ORDERED: LOS25T PO ×2 (10:06→16:51)
[2025-01-07] MEDS ORDERED: GLUC-224 VI ×2 (10:09→19:20)
[2025-01-07] MEDS ORDERED: BLOO-169 SC (10:16)
[2025-01-07] MEDS ORDERED: ISOP70MI4 EXT (10:17)
[2025-01-07] MEDS ORDERED: LANC-209 XX (10:20)
[2025-01-07 11:23] LABS: Basophils # (auto) 0.1 10 ^3/uL (0-0.2); Basophils % (auto) 0.7 % (0.0-2.0); Eosinophils # (auto) 0.1 10 ^3/uL (0-0.8); Hematocrit 35.6 % (41.0-53.0); Monocytes # (auto) 0.9 10 ^3/uL (0-1.3); Monocytes % (auto) 8.4 % (0.0-12.0)
[2025-01-07 11:25] LABS: Eosinophils % (auto) 1.2 % (0.0-7.0); Hemoglobin 12.4 g/dL (13.5-17.5); Lymphocytes # (auto) 1.3 10 ^3/uL (0.4-5.4); Lymphocytes % (auto) 12.1 % (10.0-50.0); Mean Corpuscular Hemoglobin 30.1 pg (28.0-32.0); Mean Corpuscular Hgb Conc. 34.9 g/dL (32.0-36.0); Mean Corpuscular Volume 86.3 fL (80.0-100.0); Neutrophils # (auto) 8.3 10 ^3/uL (1.6-8.6); Neutrophils % (auto) 77.6 % (37.0-80.0); Platelet Count (auto) 576 10^3/uL (140-450); Red Blood Cells 4.13 10^6/uL (4.5-5.90); Red Cell Distribution Width 12.5 % (11.8-14.3); White Blood Cell 10.7 10^3/uL (4.4-10.8)
[2025-01-07 13:25] VITALS: BP 125/77; PULSE 92; RESP 16; TEMP 98.4; O2SAT 97
[2025-01-07] MEDS ORDERED: INSU100I49 SC (16:51)
[2025-01-07] MEDS ORDERED: LANC-209 SC ×3 (16:51→19:20)
[2025-01-07] MEDS ORDERED: ISOP70MI4 EX (16:51)
[2025-01-07] MEDS ORDERED: BLOO-169 XX (16:51)
[2025-01-07] MEDS ORDERED: AMOX875T3 PO (16:51)
[2025-01-07 17:43] VITALS: BP 131/74; PULSE 92; RESP 17; TEMP 98.1; O2SAT 98
--- NOTE | 2025-01-07 18:07 | DVHDSRES ---
Discharge Summary Date of Admission Resident Creating Document: AMADOU MCFADDEN RESIDENT Dec 25, 2024 at 01:19 Date of Discharge: Jan 07, 2025 Labs/Diagnostic Data: Laboratory Results Test 01/07/25 17:35 01/07/25 10:56 01/06/25 05:42 01/05/25 16:10 POC Glucose 205 mg/dl (70-106) White Blood Count 10.7 10^3/uL (4.4-10.8) Red Blood Count 4.13 10^6/uL (4.5-5.90) Hemoglobin 12.4 g/dL (13.5-17.5) Hematocrit 35.6 % (41.0-53.0) Mean Corpuscular Volume 86.3 fL (80.0-100.0) Mean Corpuscular Hemoglobin 30.1 pg (28.0-32.0) Mean Corpuscular Hemoglobin Concent 34.9 g/dL (32.0-36.0) Red Cell Distribution Width 12.5 % (11.8-14.3) Platelet Count 576 10^3/uL (140-450) Mean Platelet Volume 6.5 fL (6.9-10.8) Neutrophils (%) (Auto) 77.6 % (37.0-80.0) Lymphocytes (%) (Auto) 12.1 % (10.0-50.0) Monocytes (%) (Auto) 8.4 % (0.0-12.0) Eosinophils (%) (Auto) 1.2 % (0.0-7.0) Basophils (%) (Auto) 0.7 % (0.0-2.0) Neutrophils # (Auto) 8.3 10 ^3/uL (1.6-8.6) Lymphocytes # (Auto) 1.3 10 ^3/uL (0.4-5.4) Monocytes # (Auto) 0.9 10 ^3/uL (0-1.3) Eosinophils # (Auto) 0.1 10 ^3/uL (0-0.8) Basophils # (Auto) 0.1 10 ^3/uL (0-0.2) Nucleated Red Blood Cells 0.0 % Differential Total Cells Counted 100.0 (100) Neutrophils % (Manual) 82 (37.0-80.0) Band Neutrophils % (Manual) 0 Lymphocytes % (Manual) 13 (10.0-50.0) Monocytes % (Manual) 3 (0-12) Eosinophils % (Manual) 2 (0-7) Basophils % (Manual) 0 (0.0-2.0) Metamyelocytes % (manual) 0 Myelocytes % (Manual) 0 Promyelocytes % (Manual) 0 Blast Cells % (Manual) 0 Reactive Lymphocytes 0 Platelet Estimate Increased Sodium Level 138 mmol/L (136-145) Potassium Level 3.8 mmol/L (3.5-5.1) Chloride Level 103 mmol/L (98-107) Carbon Dioxide Level 25 mmol/L (20-31) Anion Gap 10 (5-15) Blood Urea Nitrogen 11 mg/dL (9-23) Creatinine 1.02 mg/dL (0.700-1.30) Glomerular Filtration Rate Calc 90 mL/min (>90) BUN/Creatinine Ratio 10.8 (10.0-20.0) Serum Glucose 88 mg/dL (74-106) Calcium Level 8.9 mg/dL (8.7-10.4) Erythrocyte Sedimentation Rate 92 mm/hr (0-20) Vancomycin Level Trough 20.6 ug/mL (5-10) Test 01/05/25 06:11 01/04/25 14:00 01/03/25 05:40 01/01/25 10:00 Total Bilirubin 0.4 mg/dL (0.2-1.0) Aspartate Amino Transferase (AST) 12 U/L (13-40) Alanine Aminotransferase (ALT) 15 U/L (7-40) Alkaline Phosphatase 239 U/L (46-116) C-Reactive Protein High Sensitivity 5.08 mg/dL (<1.0) Total Protein 6.9 g/dL (5.7-8.2) Albumin 3.7 g/dL (3.2-4.8) Random Vancomycin Level 17.8 ug/mL (5-10) Creatine Kinase 15 U/L (46-171) Prothrombin Time 11.6 sec (9.3-11.8) Prothrombin Time INR 1.11 (0.9-1.15) Activated Partial Thromboplast Time 27.3 SEC (24.5-34.5) Test 12/29/24 05:15 12/26/24 09:45 12/25/24 10:00 12/25/24 09:50 Direct Bilirubin 0.1 mg/dL (<0.3) Magnesium Level 1.9 mg/dL (1.6-2.6) Lactic Acid Level 3.3 mmol/L (0.4-2.0) Plasma/Serum Blood Alcohol < 3.0 mg/dL (<10) HIV (1&2) Antibody Negative (Negative) Blood Gas Specimen Type Arterial Blood Gas Sample Site Left radial Blood Gas Patient Temperature 37.0 Arterial Blood Date Drawn [id number] Arterial Blood pH 7.265 (7.350-7.450) Arterial Blood Partial Pressure CO2 18.1 mmHg (35.0-48.0) Arterial Blood Partial Pressure O2 88.5 mmHg (83.0-108.0) Arterial Blood HCO3 8.0 mmol/L (21.0-28.0) Arterial Blood Oxygen Saturation 97.4 % (94.0-98.0) Arterial Blood Base Excess -16.3 mmol/L (-2.0-3.0) Arterial Blood Oxyhemoglobin 96.5 % (94.0-98.0) Arterial Blood Carboxyhemoglobin 0.7 % (0.5-1.5) Arterial Blood Methemoglobin 0.2 % (0.0-1.5) Alejandro Test Yes Blood Gas Total Hemoglobin 15.10 g/dL (13.5-17.5) Blood Gas Modality Room air FiO2 % 21.0 Blood Gas Critical Value Read Back Yes Blood Gas Notified Whom prashant Mcfadden md Blood Gas Notified Time [id number] Blood Gas Notified By [employer] alexandra Garcia 12/25/24 08:30 12/25/24 03:30 12/24/24 22:43 12/24/24 21:50 Urine Opiates Screen Neg (NEGATIVE) Urine Fentanyl Screen Neg (NEGATIVE) Urine Barbiturates Screen Neg (NEGATIVE) Urine Phencyclidine Screen Neg (NEGATIVE) Urine Amphetamines Screen Neg (NEGATIVE) Urine Benzodiazepines Screen Neg (NEGATIVE) Urine Cocaine Screen Neg (NEGATIVE) Urine Cannabinoids Screen Neg (NEGATIVE) Chlamydia trachomatis (JABIER) Negative (Negative) Neisseria gonorrhoeae (JABIER) Negative (Negative) Hemoglobin A1c 12.3 % A1C (<5.7) Triglycerides Level 237 mg/dL (< 150) Cholesterol Level 191 mg/dL (< 200) LDL Cholesterol 83 mg/dL (< 100) HDL Cholesterol 56 mg/dL (40-59) Lipase 109 U/L (12-53) Troponin I High Sensitivity 5 ng/L (</=54) Urine Color Light-yellow (Yellow) Urine Clarity Clear (Clear) Urine pH 5.0 (5.0-9.0) Urine Specific Stephenson 1.022 (1.001-1.035) Urine Protein Trace (Negative) Urine Ketones 4+ (Negative) Urine Blood 2+ /uL (Negative) Urine Nitrite Negative (Negative) Urine Bilirubin Negative (Negative) Urine Urobilinogen Normal mg/dL (Negative) Urine Leukocyte Esterase Negative /uL (Negative) Urine RBC 3 /hpf (0 - 3) Urine Microscopic WBC 1 /HPF (0-3) Urine Squamous Epithelial Cells Few /hpf (<5) Urine Bacteria None seen /hpf (None Seen) Urine Mucus Few (None Seen) Urine Yeast (Budding) Occasional /hpf (None Urine Glucose 4+ mg/dL (Normal) Test 12/24/24 21:49 B-Type Natriuretic Peptide 46.71 pg/mL (0-100) Beta-Hydroxybutyric Acid > 4.500 mmol/L (< 0.4) Other Laboratory Tests 01/07/25 10:56 01/06/25 05:42 Condition at Discharge: Fair Final Diagnosis/Problems List dka Right hip and thigh abscess Discharge Disposition: Home Discharge Instruct/Medications Diet: Consistent carbohydrate Activity: No Restrictions, As Tolerated Follow Up/Referral: f/u with [facility] clinic within 1 weekw f/o up ortho on sunday ( ) 01/12/2025 establish care with pcp Medications: as per JAN Discharge Statement: "Patient was advised to return to the ER or call 911 if any headaches, dizziness, shortness of breath, chest pain, abdominal pain, bleeding, fevers, or worsening of medical condition. Patient was counseled about treatment plan, medications, possible side effects, patientverbalized understanding. All questions were answered to the best of my ability. This discharge took greater then 30 minutes in planning, reviewing documentation, counseling the patient, and discussing with other team members." ASSESSMENT ASSESSMENT Assessment dka Right hip and thigh abscess AMADOU MCFADDEN RESIDENT Jan 07, 2025 18:07
--- NOTE | 2025-01-07 18:59 | DVHDSRES ---
Discharge Summary Date of Admission Resident Creating Document: AMADOU TINOCO RESIDENT Dec 25, 2024 at 01:19 Date of Discharge: Jan 07, 2025 Admitting Diagnosis Severe DKA Labs/Diagnostic Data: Laboratory Results Test 01/07/25 17:35 01/07/25 10:56 01/06/25 05:42 01/05/25 16:10 POC Glucose 205 mg/dl (70-106) White Blood Count 10.7 10^3/uL (4.4-10.8) Red Blood Count 4.13 10^6/uL (4.5-5.90) Hemoglobin 12.4 g/dL (13.5-17.5) Hematocrit 35.6 % (41.0-53.0) Mean Corpuscular Volume 86.3 fL (80.0-100.0) Mean Corpuscular Hemoglobin 30.1 pg (28.0-32.0) Mean Corpuscular Hemoglobin Concent 34.9 g/dL (32.0-36.0) Red Cell Distribution Width 12.5 % (11.8-14.3) Platelet Count 576 10^3/uL (140-450) Mean Platelet Volume 6.5 fL (6.9-10.8) Neutrophils (%) (Auto) 77.6 % (37.0-80.0) Lymphocytes (%) (Auto) 12.1 % (10.0-50.0) Monocytes (%) (Auto) 8.4 % (0.0-12.0) Eosinophils (%) (Auto) 1.2 % (0.0-7.0) Basophils (%) (Auto) 0.7 % (0.0-2.0) Neutrophils # (Auto) 8.3 10 ^3/uL (1.6-8.6) Lymphocytes # (Auto) 1.3 10 ^3/uL (0.4-5.4) Monocytes # (Auto) 0.9 10 ^3/uL (0-1.3) Eosinophils # (Auto) 0.1 10 ^3/uL (0-0.8) Basophils # (Auto) 0.1 10 ^3/uL (0-0.2) Nucleated Red Blood Cells 0.0 % Differential Total Cells Counted 100.0 (100) Neutrophils % (Manual) 82 (37.0-80.0) Band Neutrophils % (Manual) 0 Lymphocytes % (Manual) 13 (10.0-50.0) Monocytes % (Manual) 3 (0-12) Eosinophils % (Manual) 2 (0-7) Basophils % (Manual) 0 (0.0-2.0) Metamyelocytes % (manual) 0 Myelocytes % (Manual) 0 Promyelocytes % (Manual) 0 Blast Cells % (Manual) 0 Reactive Lymphocytes 0 Platelet Estimate Increased Sodium Level 138 mmol/L (136-145) Potassium Level 3.8 mmol/L (3.5-5.1) Chloride Level 103 mmol/L (98-107) Carbon Dioxide Level 25 mmol/L (20-31) Anion Gap 10 (5-15) Blood Urea Nitrogen 11 mg/dL (9-23) Creatinine 1.02 mg/dL (0.700-1.30) Glomerular Filtration Rate Calc 90 mL/min (>90) BUN/Creatinine Ratio 10.8 (10.0-20.0) Serum Glucose 88 mg/dL (74-106) Calcium Level 8.9 mg/dL (8.7-10.4) Erythrocyte Sedimentation Rate 92 mm/hr (0-20) Vancomycin Level Trough 20.6 ug/mL (5-10) Test 01/05/25 06:11 01/04/25 14:00 01/03/25 05:40 01/01/25 10:00 Total Bilirubin 0.4 mg/dL (0.2-1.0) Aspartate Amino Transferase (AST) 12 U/L (13-40) Alanine Aminotransferase (ALT) 15 U/L (7-40) Alkaline Phosphatase 239 U/L (46-116) C-Reactive Protein High Sensitivity 5.08 mg/dL (<1.0) Total Protein 6.9 g/dL (5.7-8.2) Albumin 3.7 g/dL (3.2-4.8) Random Vancomycin Level 17.8 ug/mL (5-10) Creatine Kinase 15 U/L (46-171) Prothrombin Time 11.6 sec (9.3-11.8) Prothrombin Time INR 1.11 (0.9-1.15) Activated Partial Thromboplast Time 27.3 SEC (24.5-34.5) Test 12/29/24 05:15 12/26/24 09:45 12/25/24 10:00 12/25/24 09:50 Direct Bilirubin 0.1 mg/dL (<0.3) Magnesium Level 1.9 mg/dL (1.6-2.6) Lactic Acid Level 3.3 mmol/L (0.4-2.0) Plasma/Serum Blood Alcohol < 3.0 mg/dL (<10) HIV (1&2) Antibody Negative (Negative) Blood Gas Specimen Type Arterial Blood Gas Sample Site Left radial Blood Gas Patient Temperature 37.0 Arterial Blood Date Drawn [id number] Arterial Blood pH 7.265 (7.350-7.450) Arterial Blood Partial Pressure CO2 18.1 mmHg (35.0-48.0) Arterial Blood Partial Pressure O2 88.5 mmHg (83.0-108.0) Arterial Blood HCO3 8.0 mmol/L (21.0-28.0) Arterial Blood Oxygen Saturation 97.4 % (94.0-98.0) Arterial Blood Base Excess -16.3 mmol/L (-2.0-3.0) Arterial Blood Oxyhemoglobin 96.5 % (94.0-98.0) Arterial Blood Carboxyhemoglobin 0.7 % (0.5-1.5) Arterial Blood Methemoglobin 0.2 % (0.0-1.5) Alejandro Test Yes Blood Gas Total Hemoglobin 15.10 g/dL (13.5-17.5) Blood Gas Modality Room air FiO2 % 21.0 Blood Gas Critical Value Read Back Yes Blood Gas Notified Whom prashant Tinoco md Blood Gas Notified Time [id number] Blood Gas Notified By Quality Control Assessor alexandra Garcia 12/25/24 08:30 12/25/24 03:30 12/24/24 22:43 12/24/24 21:50 Urine Opiates Screen Neg (NEGATIVE) Urine Fentanyl Screen Neg (NEGATIVE) Urine Barbiturates Screen Neg (NEGATIVE) Urine Phencyclidine Screen Neg (NEGATIVE) Urine Amphetamines Screen Neg (NEGATIVE) Urine Benzodiazepines Screen Neg (NEGATIVE) Urine Cocaine Screen Neg (NEGATIVE) Urine Cannabinoids Screen Neg (NEGATIVE) Chlamydia trachomatis (JABIER) Negative (Negative) Neisseria gonorrhoeae (JABIER) Negative (Negative) Hemoglobin A1c 12.3 % A1C (<5.7) Triglycerides Level 237 mg/dL (< 150) Cholesterol Level 191 mg/dL (< 200) LDL Cholesterol 83 mg/dL (< 100) HDL Cholesterol 56 mg/dL (40-59) Lipase 109 U/L (12-53) Troponin I High Sensitivity 5 ng/L (</=54) Urine Color Light-yellow (Yellow) Urine Clarity Clear (Clear) Urine pH 5.0 (5.0-9.0) Urine Specific [place] 1.022 (1.001-1.035) Urine Protein Trace (Negative) Urine Ketones 4+ (Negative) Urine Blood 2+ /uL (Negative) Urine Nitrite Negative (Negative) Urine Bilirubin Negative (Negative) Urine Urobilinogen Normal mg/dL (Negative) Urine Leukocyte Esterase Negative /uL (Negative) Urine RBC 3 /hpf (0 - 3) Urine Microscopic WBC 1 /HPF (0-3) Urine Squamous Epithelial Cells Few /hpf (<5) Urine Bacteria None seen /hpf (None Seen) Urine Mucus Few (None Seen) Urine Yeast (Budding) Occasional /hpf (None Urine Glucose 4+ mg/dL (Normal) Test 12/24/24 21:49 B-Type Natriuretic Peptide 46.71 pg/mL (0-100) Beta-Hydroxybutyric Acid > 4.500 mmol/L (< 0.4) Other Laboratory Tests 01/07/25 10:56 01/06/25 05:42 Brief Hx & Hospital Course: HPI 49 year old male patient with past medical history of type 2 obesity, who was brought by paramedics with a chief complaint of shortness of breaths (increased work of breathing) respirations were deep, fast (Kussmaul breathing), patient was ill-appearing and had a critical high blood glucose level. Vital signs showed severe hypertension (blood pressure 205/102), Hospital course: initial laboratory findings were consistent with severe diabetic ketoacidosis, for which the patient was started on IV fluids, insulin drip and electrolyte monitoring , the patient was admitted to the ICU for severe DKA with possible underlying sepsis, during ICU admission (12/25/2024) metabolic acidosis improved from 6.9-7.26, anion gap decreased from 22 to 16, potassium levels went down until 3.5, requiring IV potassium chloride supplementation (60 mEq), most recent blood glucose went down until 140 mg/dL for which the patient was given dextrose 5%. Low-grade fevers 99.1 F was noted an elevated white blood cell count 30.3 that raise concern for sepsis as a potential DKA trigger, urinalysis was positive for yeast and blood the patient was started on fluconazole IV for suspected fungal UTI, patient will empirically on IV antibiotics with meropenem and vancomycin while awaiting blood cultures and urine cultures. Regarding right hip pain a CT abdomen and pelvis and lower extremity US were performed, DVT was ruled out but ultrasound showed a small hip joint effusion/ganglion cyst, possible MRI to assess further we will be evaluated once DKA resolves. On 01/02 the patient was sent to the OR for an incision and drainage of a right hip abscess, a wound VAC was placed. Microbiology showed Staphylococcus aureus MSSA, for which the patient was started on ampicillin sulbactam. Vital signs are within normal limits and patient denies any new complaint. CMP showed white blood cell count on 12, the previous CMP taken yesterday was on white blood cell 15.2. 01/07/2025 patient reports being asymptomatic, wound VAC was removed, white blood cells went down until 10, vital signs continue within normal limits for which the patient was discharged on safe condition with the recommendation to follow-up in the discharge clinic in 1 week and follow up with ortho on Sunday, diabetic education was provided on detail. Before discharge the patient was evaluated by physical therapy, they recommend to discharge him with a walker , patient still in the process of obtaining an insurance that cover this medical equipment, he was offered some affordable options and explained the risk of fall. Patient refuse at this time and decided to consider that option in the next couple of days. Disposition: Discharge to home. Goals of care discussed with the patient and family for 49 minutes. Code status: DNR/DNI Operations or Procedures [place] [address] Ph: [phone] DIAGNOSTIC IMAGING Diagnostic Imaging Report : [id number] Signed PATIENT: CAR NICHOLS ACCT: [id number] UNIT: [id number] : 1975 LOC: CENTRAL ROOM / BED: 0217 / A AGE / SEX: 49 / M ADM STATUS: ADM IN SERVICE 1039 ORDERING PHYSICIAN: LILY RIOJAS RESIDENT PROCEDURE(s): THOUS - US GUIDANCE FOR NEEDLE PLACEME REASON: RT HIP DRAINAGE ORDER NUMBER(s): [id number], ACCESSION NUMBER(s): [id number] DATE: JANUARY 01, 2025. TITLE: ULTRASOUND-GUIDED SOFT TISSUE ASPIRATION AROUND THE RIGHT HIP JOINT. HISTORY: RIGHT HIP ABSCESS. CONSENT: INFORMED WRITTEN CONSENT WAS OBTAINED FROM THE PATIENT. ANESTHESIA: 1% LIDOCAINE LOCAL. TECHNIQUE: WITH THE PATIENT SUPINE SKIN AROUND THE RIGHT HIP JOINT WAS PREPPED AND DRAPED IN THE USUAL STERILE FASHION. UNDER ULTRASOUND GUIDANCE THE INFLAMED SOFT TISSUE WAS LOCALIZED. SPOT ULTRASOUND IMAGES WERE OBTAINED AND STORED. 1% LIDOCAINE WAS APPLIED A SKIN AND SOFT TISSUE. A 5 GAMBIAN YUEH NEEDLE CATHETER WAS ADVANCED. THE NEEDLE WAS REMOVED. MULTI SIDE-HOLE CATHETER WAS USED TO ASPIRATE 2 CC OF PURULENT COLLECTION. SAMPLE WAS SENT FOR GRAM STAIN AND CULTURE. TEMPORARY CATHETER WAS REMOVED. THE PATIENT TOLERATED PROCEDURE WELL WITHOUT ANY IMMEDIATE COMPLICATIONS. IMPRESSION: 1. SUCCESSFUL ULTRASOUND-GUIDED ASPIRATION OF SOFT TISSUE ABSCESS AROUND THE RIGHT HIP JOINT. FLUID SAMPLE SENT FOR MICROBIOLOGY ANALYSIS. ATED BY: ANEL MORRISON MD DICTATED DATE/TIME: 01/01/251204 SIGNED BY: ANEL MORRISON MD SIGNED DATE/TIME: 01/01/25 120 CC: [place] [address] Ph: [phone] DIAGNOSTIC IMAGING Diagnostic Imaging Report : [id number] Signed PATIENT: CAR NICHOLS ACCT: [id number] UNIT: [id number] : 1975 LOC: CENTRAL ROOM / BED: [address] [place] [address] AGE / SEX: 49 / M ADM STATUS: ADM IN SERVICE 0845 ORDERING PHYSICIAN: ANEL MORRISON MD PROCEDURE(s): RLEXT - RIGHT LOWER EXTREMITY ULTRASOU REASON: RT HIP EFFUSION ORDER NUMBER(s): [id number], ACCESSION NUMBER(s): [id number] Exam: US RIGHT LOWER EXTREMITY ULTRASOU Clinical History: RT HIP EFFUSION Comparison: US RIGHT LOWER EXTREMITY ULTRASOU on DOS: 12/30/24, US RIGHT LOWER EXTREMITY ULTRASOU on DOS: 12/25/24 Technique: Targeted sonographic evaluation of the soft tissues of the right hip was obtained utilizing grayscale and color Doppler imaging. Findings/Impression: Soft-tissue edema and small fluid collection overlying the right hip. ATED BY: SONU VALDEZ MD DICTATED DATE/TIME: 01/01/251020 SIGNED BY: SONU VALDEZ MD SIGNED DATE/TIME: 01/01/251020 CC: [place] [address] Ph: [phone] DIAGNOSTIC IMAGING Diagnostic Imaging Report : [id number] Signed PATIENT: CAR NICHOLS ACCT: [id number] UNIT: [id number] : 1975 LOC: CENTRAL ROOM / BED: [facility] / A AGE / SEX: 49 / M ADM STATUS: ADM IN SERVICE 1757 ORDERING PHYSICIAN: AMADOU TINOCO PROCEDURE(s): RLEXT - RIGHT LOWER EXTREMITY ULTRASOU REASON: FLUID COLLECTION IN THE RIGHT HIP ORDER NUMBER(s): [id number], ACCESSION NUMBER(s): [id number] Exam: US RIGHT LOWER EXTREMITY ULTRASOU Clinical History: FLUID COLLECTION IN THE RIGHT HIP Comparison: US RIGHT LOWER EXTREMITY ULTRASOU on DOS: 12/25/24 Technique: Targeted sonographic evaluation of the soft tissues of the right hip was obtained utilizing grayscale and color Doppler imaging. Findings/Impression: Small volume fluid overlying the right hip. Diffuse subcutaneous soft-tissue edema and swelling. ATED BY: SONU VALDEZ MD DICTATED DATE/TIME: 12/30/242020 SIGNED BY: SONU VALDEZ MD SIGNED DATE/TIME: 12/30/242020 CC: [place] [address] Ph: [phone] DIAGNOSTIC IMAGING Diagnostic Imaging Report : [id number] Signed PATIENT: CAR NICHOLS ACCT: [id number] UNIT: [id number] : 1975 LOC: TELE-CENTR ROOM / BED: [facility] / A AGE / SEX: 49 / M ADM STATUS: ADM IN SERVICE 1531 ORDERING PHYSICIAN: DAMEON EPSTEIN MD PROCEDURE(s): RHPMR - MRI R HIP WO CONTRAST REASON: RIGHT HIP ORDER NUMBER(s): [id number], ACCESSION NUMBER(s): [id number] EXAM: MRI MRI R HIP WO CONTRAST HISTORY: RIGHT HIP COMPARISON: None TECHNIQUE: Multiplanar, multisequence MRI was performed. FINDINGS: The femoral heads are spherical morphology and symmetrically aligned. There is no joint effusion. No lytic or blastic lesions of the bony structures of the hips or pelvic ring There is a large multiloculated area of fluid in the subcutaneous tissues in the proximal posterior lateral right thigh extending deep into the gluteal musculature and adductor musculature of the thigh. There is no destructive lesions of the proximal right femur. IMPRESSION: 1. Large inflammatory soft tissue process involving the subcutaneous tissues of the posterolateral proximal right thigh extending deep into the right gluteal and abductor musculature. No involvement of underlying hip joint or bone ATED BY: JAVON HUERTA MD DICTATED DATE/TIME: 12/29/241708 SIGNED BY: JAVON HUERTA MD SIGNED DATE/TIME: 12/29/241708 CC: [place] [address] Ph: [phone] DIAGNOSTIC IMAGING Diagnostic Imaging Report : [id number] Signed PATIENT: CAR NICHOLS ACCT: [id number] UNIT: [id number] : 1975 LOC: [facility] ROOM / BED: [address] [place] [address] AGE / SEX: 49 / M ADM STATUS: ADM IN SERVICE 0959 ORDERING PHYSICIAN: AMADOU TINOCO RESIDENT PROCEDURE(s): RLEXT - RIGHT LOWER EXTREMITY ULTRASOU REASON: right hip pain ORDER NUMBER(s): [id number], ACCESSION NUMBER(s): [id number] Procedure: US RIGHT LOWER EXTREMITY ULTRASOU 12/25/2024 10:14 AM Indication: right hip pain Comparison: Radiograph dated 12/25/2024 Technique: Sonogram of the area of clinical concern in the anterior right hip region was obtained utilizing grayscale and color techniques. FINDINGS: There is a crescentic fluid-filled structure anterior to the hip joint measuring 2.9 x 0.7 x 0.5 cm that may represent a joint effusion or ganglion cyst. IMPRESSION: Small hip joint effusion versus ganglion cyst. This can be better evaluated by hip MRI without IV contrast if clinically indicated. ATED BY: KERI HAQ MD DICTATED DATE/TIME: 12/25/24 115 SIGNED BY: KERI HAQ MD SIGNED DATE/TIME: 12/25/24 115 CC: [place] [address] Ph: [phone] DIAGNOSTIC IMAGING Diagnostic Imaging Report : [id number] Signed PATIENT: CAR NICHOLS ACCT: [id number] UNIT: [id number] : 1975 LOC: ICU [place] ROOM / BED: [address] [place] [address] AGE / SEX: 49 / M ADM STATUS: ADM IN SERVICE 7 ORDERING PHYSICIAN: AMADOU TINOCO RESIDENT PROCEDURE(s): ABPL - CT AB PEL WO CON-NO ORAL OR IV REASON: intra abdominal infection or collection to rule out. ORDER NUMBER(s): [id number], ACCESSION NUMBER(s): [id number] CT ABDOMEN AND PELVIS WITHOUT CONTRAST CLINICAL HISTORY: intra abdominal infection or collection to rule out. TECHNIQUE: Multiple contiguous axial images of the abdomen and pelvis without intravenous contrast. The images were reformatted degenerate coronal and sagittal reconstructions. All CT scans at this medical facility are performed using dose modulation techniques as appropriate to a performed exam including the following:Automated exposure control was utilized; adjustment of the MA and/or KV according to patient size; and use of iterative reconstruction technique. Radiation Dose Information: CT Dose: CTDI volume is 21.66 mGy. Dose-length product is 1473.94 mGy*cm Comparison: None FINDINGS: Evaluation of the abdomen and pelvis is limited without intravenous contrast. There is a 5 mm calculus in the lower pole of the left kidney. There is no right renal calculus. There is no hydronephrosis. There is no evidence of a ureteral calculus or hydroureter. The liver, gallbladder, pancreas, adrenal glands, and spleen appear within normal limits. There is no gross evidence of abdominal lymphadenopathy. There is no free fluid or free air. The stomach grossly appears unremarkable. The small and large bowel loops demonstrate normal caliber and appear within normal limits.. The abdominal aorta and IVC appear within normal limits. There is a Ruiz catheter in the bladder which is decompressed limiting evaluation. Pelvic organ appears within normal limits. There is no gross evidence of a pelvic mass. There is no free fluid collection. Lung bases are clear. There is no acute osseous abnormality. IMPRESSION: 1. There is no acute process in the abdomen and pelvis. 2. 5 mm nonobstructive left lower pole renal calculus. HS:Y ATED BY: SHERRIE SALGADO MD DICTATED DATE/TIME: 12/25/24 150 SIGNED BY: SHERRIE SALGADO MD SIGNED DATE/TIME: 12/25/24 150 CC: [place] [address] Ph: [phone] DIAGNOSTIC IMAGING Diagnostic Imaging Report : [id number] Signed PATIENT: CAR NICHOLS ACCT: [id number] UNIT: [id number] : 1975 LOC: [facility] ROOM / BED: [address] [place] [address] AGE / SEX: 49 / M ADM STATUS: ADM IN SERVICE 0000 ORDERING PHYSICIAN: CHRISTA MILLER RESIDENT PROCEDURE(s): RLDVT - RT Lower DVT REASON: R/O DVT ORDER NUMBER(s): [id number], ACCESSION NUMBER(s): [id number] RIGHT LOWER EXTREMITY VENOUS DOPPLER CLINICAL HISTORY: R/O DVT TECHNIQUE: Right lower extremity venous doppler study was performed. COMPARISON: None FINDINGS: The right common femoral, superficial femoral, popliteal, posterior tibial veins and trifurcation appear patent with normal augmentation, phasicity, compressibility and color-flow. IMPRESSION: 1. No sonographic evidence of DVT in the right leg. HS:Y ATED BY: SHERRIE SALGADO MD DICTATED DATE/TIME: 12/25/24 1055 SIGNED BY: SHERRIE SALGADO MD SIGNED DATE/TIME: 12/25/24 1055 CC: [place] [address] Ph: [phone] DIAGNOSTIC IMAGING Diagnostic Imaging Report : [id number] Signed PATIENT: CAR NICHOLS ACCT: [id number] UNIT: [id number] : 1975 LOC: OVERFLOW ROOM / BED: [address] [place] [address] AGE / SEX: 49 / M ADM STATUS: ADM IN SERVICE 34 ORDERING PHYSICIAN: VALDEMAR OROPEZA MD PROCEDURE(s): CXRP - CHEST PORTABLE REASON: sob ORDER NUMBER(s): [id number], ACCESSION NUMBER(s): [id number] CHEST RADIOGRAPH Indication: sob Technique: Single frontal view of the chest was obtained COMPARISON: None FINDINGS: Lines and Tubes: None Lungs: Clear Pleura: No effusion. No pneumothorax. Cardiomediastinal contours: Unremarkable Bones: Unremarkable IMPRESSION: 1. No acute disease. ATED BY: EMILE MURDOCK MD DICTATED DATE/TIME: 12/25/24152 SIGNED BY: EMILE MURDOCK MD SIGNED DATE/TIME: 12/25/24152 CC: [place] [address] Ph: [phone] DIAGNOSTIC IMAGING Diagnostic Imaging Report : [id number] Signed PATIENT: CAR NICHOLS ACCT: [id number] UNIT: [id number] : 1975 LOC: OVERFLOW ROOM / BED: [address] [place] [address] AGE / SEX: 49 / M ADM STATUS: ADM IN SERVICE 34 ORDERING PHYSICIAN: VALDEMAR OROPEZA MD PROCEDURE(s): RHIP - R HIP COMPLETE XRAY REASON: pain ORDER NUMBER(s): [id number], ACCESSION NUMBER(s): [id number] CLINICAL INDICATION: pain TECHNIQUE: 3 views of the right hip. Comparison: None FINDINGS/IMPRESSION: There is no evidence of acute fracture or dislocation. Soft tissues are unremarkable. ATED BY: EMILE MURDOCK MD DICTATED DATE/TIME: 12/25/24153 SIGNED BY: EMILE MURDOCK MD SIGNED DATE/TIME: 12/25/24153 CC: Condition at Discharge: Fair Final Diagnosis/Problems List #Acute metabolic/hypertensive encephalopathy due to severe diabetic ketoacidosis due to sepsis due to right hip abscess, resolving # fungal urinary tract infection, resolving # Sepsis due to large right hip abscess s/p I &D #acute metabolic/ hypertensive encephalopathy likely multifactorial due to DKA / hypertensive emergency #hypertriglyceridemia #sinus tachycardia #Hypertension #Acute hypoxemic respiratory failure due to severe diabetic ketoacidosis likely due to sepsis due to Right hip abscess #metabolic alkalosis due to DKA #respiratory alkalosis #acute kidney injury likely hemodynamically mediated due to the VMN, creatinine improving #nonobstructive right sided kidney stone, 5 mm #Hypokalemia,replenished #fungal UTI #Normocytic normochromic anemia #Reactive thrombocytosis #Uncontrolled type 2 diabetes, hemoglobin A1c 12.3 #DKA,resolved #Hypovolemic hyponatremia due to severe hyperglycemia, resolved #Ketonuria #Metabolic syndrome #Type 2 obesity #history of recent urethral whitish discharge likely due to fungal UTI #Severe sepsis due to large right hip abscess due to staphylococcus aureus MSSA Discharge Disposition: Home SNF Discharge Will this Physician continue t: No Discharge Instruct/Medications Diet: Consistent carbohydrate Activity: No Restrictions, As Tolerated Follow Up/Referral: f/u with dc clinic within 1 weekw f/o up ortho on sunday ( ) 01/12/2025 establish care with pcp Medications: as per JAN Discharge Statement: "Patient was advised to return to the ER or call 911 if any headaches, dizziness, shortness of breath, chest pain, abdominal pain, bleeding, fevers, or worsening of medical condition. Patient was counseled about treatment plan, medications, possible side effects, patientverbalized understanding. All questions were answered to the best of my ability. This discharge took greater then 30 minutes in planning, reviewing documentation, counseling the patient, and discussing with other team members." ASSESSMENT ASSESSMENT Assessment dka Right hip and thigh abscess AMADOU TINOCO RESIDENT Jan 07, 2025 18:59
[2025-01-07] MEDS ORDERED: INSU-1639 SC (19:20)
== END 2025-01-07 17:00 | disposition home or self-care (01) | DRG 710 ==
LOC: EDBD 21:23 → ER 21:23 → OVERFLOW 12-25 01:19 → ICU WEST 12-25 07:19 → TELE-CENTR 12-26 18:27 → CENTRAL 12-29 22:20
PROVIDERS: ADMIT Internal Medicine; ATTEND Internal Medicine
PROC: 0Y9C0ZZ Drainage of Right Upper Leg, Open Approach (ICD-10-PCS; 2025-01-01)
PROC: 0KBQ0ZZ Excision of Right Upper Leg Muscle, Open Approach (ICD-10-PCS; principal; 2025-01-02 09:21)
DX: A41.01 Sepsis due to Methicillin susceptible Staphylococcus aureus (principal); J96.01 Acute respiratory failure with hypoxia; N17.0 Acute kidney failure with tubular necrosis; G93.41 Metabolic encephalopathy; E11.10 Type 2 diabetes mellitus with ketoacidosis without coma; I67.4 Hypertensive encephalopathy; B49 Unspecified mycosis; J18.9 Pneumonia, unspecified organism; I48.91 Unspecified atrial fibrillation; E86.1 Hypovolemia; D72.829 Elevated white blood cell count, unspecified; E78.5 Hyperlipidemia, unspecified; E78.1 Pure hyperglyceridemia; R00.0 Tachycardia, unspecified; N20.0 Calculus of kidney; E87.1 Hypo-osmolality and hyponatremia; E88.810 Metabolic syndrome; N39.0 Urinary tract infection, site not specified; E87.6 Hypokalemia; L02.415 Cutaneous abscess of right lower limb; E66.9 Obesity, unspecified; I16.1 Hypertensive emergency; E87.3 Alkalosis; D69.6 Thrombocytopenia, unspecified; D64.9 Anemia, unspecified; R82.4 Acetonuria; Z79.4 Long term (current) use of insulin; Z79.899 Other long term (current) drug therapy
CPT/HCPCS: 36415; 36600; 71045; 73502; 73721; 74176; 76881; 76942; 80048; 80053; 80061; 80076; 80202; 80307; 80320; 81001; 82010; 82550; 82565; 82805; 82962; 83036; 83605; 83690; 83735; 83880; 84132; 84484; 85007; 85025; 85027; 85610; 85652; 85730; 86141; 86703; 86850; 86900; 86901; 87040; 87070; 87075; 87077; 87081; 87086; 87186; 87205; 93005; 93306; 93971; 97110; 97116; 97163; 97530; 99291; C1729; G0378; J0330; J1450; J1815; J2185; J2250; J2405; J2470; J2543; J2704; J3480; J3490